=== PATIENT | female | born 1970 | race Caucasian/White ===

== ENCOUNTER 2016-12-24 16:26 | Inpatient (IN) ==
[2016-12-24 19:31] LABS: Basophils # 0.1 K/mcL (0.0-0.2); Basophils % 0.6 %; Eosinophils # 0.1 K/mcL (0.0-0.6); Eosinophils % 1.3 %; Hematocrit 40.4 % (35.3-44.9); Hemoglobin 13.5 g/dL (11.5-15.4); Immature Granulocytes % 0.5 % (0-4); Lymphocytes # 2.8 K/mcL (0.6-4.6); Mean Corpuscular HGB Conc 33.4 g/dL (31.6-35.5); Mean Corpuscular Hemoglobin 28.7 pg (28.0-33.3); Monocytes # 0.5 K/mcL (0.0-1.3); Monocytes % 4.9 %; Neutrophils # 7.5 K/mcL (1.6-8.9); Platelet Count 436 K/mcL (140-400); Red Cell Distribution Width 12.9 % (11.5-14.5); Segmented Neutrophils % 67.7 %
[2016-12-24 19:40] LABS: BUN/Creatinine Ratio 14 (6-26); Blood Urea Nitrogen 16 mg/dL (7-20); Calcium 9.4 mg/dL (8.6-10.8); Carbon Dioxide 21 mEq/L (19-29); Chloride 102 mEq/L (98-109); Glucose 451 mg/dL (70-99); Osmolality,Calculated 299 (280-300); Potassium 4.4 mEq/L (3.5-4.5); Sodium 134 mEq/L (136-145); eGFR For African Americans > 60 (> 60); eGFR For Non-African Americans 51 (> 60)
--- NOTE | 2016-12-24 21:21 | Emergency Department Note ---
Disposition Clinical Impression: Toe osteomyelitis, right, Poorly controlled diabetes mellitus, Acute osteomyelitis of toe of right foot Disposition: Admitted As Inpatient Condition: Serious Time of Disposition: 00:17 Extremity Problem HPI - General Chief complaint: ED Wound/Laceration Stated complaint: cellulitis Time Seen by Provider: 12/24/16 20:35 Source: patient, family Limitations: no limitations Nursing Notes Reviewed: Yes Vital Signs Reviewed: Yes - History of Present Illness HPI Narrative: 46-year-old female with right great toe swelling. Patient has a history of diabetes but has been unable to take her medications secondary to cost, her sugars have been running in the 300s. Patient states that she is having worsening pain, she was on Bactrim and Keflex last month but her swelling and redness got worse for the last few days. Patient reports subjective fevers at home. Pt Subjective Complaint: extremity pain, extremity swelling Onset (ago): week(s) Consistency: Worsening Injury Location: right, lower extremity Pain Scale: 6 Quality: burning, stabbing, aching Radiation: distal Improves with: nothing Worsens with: weight bearing Associated symptoms: Denies: chest pain, shortness of breath, abdominal pain - Related Data Home Medications Medication Instructions Recorded Confirmed Insulin ASPART [NovoLOG] 0 unit SQ TIDWM 12/24/16 12/24/16 Insulin Glargine [Lantus] 25 unit SQ HS 12/24/16 12/24/16 Allergies Allergy/AdvReac Type Severity Reaction Status Date / Time codeine Allergy Confusion Verified 12/24/16 16:56 All systems ED: reviewed and negative except as stated. Constitutional: Reports: as per HPI, fever, chills Cardiovascular: Denies: chest pain, palpitations Respiratory: Denies: cough, dyspnea Gastrointestinal: Denies: abdominal pain, nausea, vomiting Musculoskeletal: Reports: joint swelling Integumentary: Reports: as per HPI, rash, lesions Past Medical History - Past Medical History Attestation: Yes The following information was validated with the patient. Source: patient Medical history: Reports: diabetes, kidney stones Psychiatric history: Reports: no psych history GREENHOUSE SPECIALIST history: Reports: no GREENHOUSE SPECIALIST history - Social History Smoking Status: Current every day smoker Smokeless Tobacco Status: No Alcohol use: Reports: none Drug use: Reports: none Physical Exam Constitutional: Alert and appropriate, somewhat tachycardic. Neck: normal inspection, neck is supple, trachea midline Resp: normal chest inspection, CTA bilaterally, no resp distress CV: RRR, no m/g/r GI: normal inspection, Soft, NTND, BS present MSK: The great toe with area of lateral ulceration, purulent drainage, erythematous, severe swelling, neurologically somewhat limited to light touch distally. No streaking up the leg or foot. Psych: normal mood, normal affect Skin: No rashes, skin warm, dry, intact - General Limitations: no limitations General appearance: alert, in no apparent distress Course Course Narrative: Noncompliant insulin dependent diabetic, with worsening right toe infection appears to be cellulitic will get imaging to rule out osteal myelitis, - Reevaluation(s) Reevaluation #1: Lab work is remarkable for tachycardia, elevated white count therefore does not not meet Sirs criteria, lactic acid normal, blood cultures and wound cultures sent, we will consult with podiatry, admitted 10 [address] for further workup given osteomyelitis on CT scan Time: 00:16 - Consultations Consultation #1: Dr. Campos consulted and recommends Vanc Zosyn, nothing by mouth after midnight will dilate the patient in the morning. Vital Signs Temperature 98.1 F 12/24/16 16:57 Pulse Rate 107 12/24/16 16:57 Respiratory Rate 18 12/24/16 16:57 Blood Pressure 141/88 12/24/16 16:57 O2 Sat by Pulse Oximetry 98 12/24/16 16:57 Temperature 97.9 F 12/25/16 10:37 Pulse Rate 81 12/25/16 10:37 Respiratory Rate 17 12/25/16 10:37 Blood Pressure 119/78 12/25/16 10:37 O2 Sat by Pulse Oximetry 96 12/25/16 10:37 Oxygen Delivery Oxygen Delivery Room Air Extremity Problem, Nontraumati - MDM Narrative Medical decision making narrative: 46-year-old female with right foot cellulitis Mina myelitis started on IV antibiotics and IV fluids, consultative podiatry admitted to medicine service - Differential Diagnosis Likely: cellulitis, superficial thrombophlebitis, deep venous thrombosis, lower extremity edema, septic joint - Medical Records Medical records reviewed: Yes I reviewed the patient's medical records. - Lab Data Lab results reviewed: Yes I reviewed the patient's lab results. Result diagrams: 12/24/16 19:20 12/24/16 19:20 Lab Results 12/24/16 12/24/16 12/24/16 Range/Units 19:20 19:20 19:25 WBC 11.1 (4.3-11.1) K/mcL RBC 4.70 (3.82-4.97) M/mcL Hgb 13.5 (11.5-15.4) g/dL Hct 40.4 (35.3-44.9) % MCV 86.0 (83.0-100.0) fL MCH 28.7 (28.0-33.3) pg MCHC 33.4 (31.6-35.5) g/dL RDW 12.9 (11.5-14.5) % Plt Count 436 H (140-400) K/mcL MPV 10.0 (9.4-12.4) fL Immature Gran % 0.5 (0-4) % Seg Neutrophils % 67.7 % Lymphocytes % 25.0 % Monocytes % 4.9 % Eosinophils % 1.3 % Basophils % 0.6 % Neutrophils # 7.5 (1.6-8.9) K/mcL Lymphocytes # 2.8 (0.6-4.6) K/mcL Monocytes # 0.5 (0.0-1.3) K/mcL Eosinophils # 0.1 (0.0-0.6) K/mcL Basophils # 0.1 (0.0-0.2) K/mcL ESR (0-15) mm/hr VBG pH (7.32-7.42) pH Units VBG pCO2 (41-51) mmHg VBG pO2 (25-40) mmHg VBG HCO3 (21-27) mEq/L Sodium 134 L (136-145) mEq/L Potassium 4.4 (3.5-4.5) mEq/L Chloride 102 (98-109) mEq/L Carbon Dioxide 21 (19-29) mEq/L BUN 16 (7-20) mg/dL Creatinine 1.16 H (0.57-1.11) mg/dL Est GFR ( Amer) > 60 (> 60) Est GFR (Non-Af Amer) 51 L (> 60) BUN/Creatinine Ratio 14 (6-26) Glucose 451 H (70-99) mg/dL POC Glucose (58-89) Est Mean Plasma Glucose > 355 mg/dl Hemoglobin A1c >= 14.1 H ( - 5.6) % Calculated Osmolality 299 (280-300) Lactic Acid (0.5-2.2) mmol/L Calcium 9.4 (8.6-10.8) mg/dL C-Reactive Protein (Less than 5) mg/L Beta-Hydroxybutyric Acd (0.02-0.27) mmol/L Urine Color (Yellow) Urine Clarity (Clear) Urine pH (5.0-8.0) pH Units Ur Specific [place] (1.010-1.025) Urine Protein (Neg-Trace) mg/dL Urine Glucose (UA) (Normal) mg/dL Urine Ketones (Negative) mg/dL Urine Blood (Negative) Urine Nitrite (Negative) Urine Bilirubin (Negative) Urine Urobilinogen (Normal) mg/dL Ur Leukocyte Esterase (Negative) 12/24/16 12/24/16 12/24/16 Range/Units 21:32 21:32 21:32 WBC (4.3-11.1) K/mcL RBC (3.82-4.97) M/mcL Hgb (11.5-15.4) g/dL Hct (35.3-44.9) % MCV (83.0-100.0) fL MCH (28.0-33.3) pg MCHC (31.6-35.5) g/dL RDW (11.5-14.5) % Plt Count (140-400) K/mcL MPV (9.4-12.4) fL Immature Gran % (0-4) % Seg Neutrophils % % Lymphocytes % % Monocytes % % Eosinophils % % Basophils % % Neutrophils # (1.6-8.9) K/mcL Lymphocytes # (0.6-4.6) K/mcL Monocytes # (0.0-1.3) K/mcL Eosinophils # (0.0-0.6) K/mcL Basophils # (0.0-0.2) K/mcL ESR (0-15) mm/hr VBG pH 7.41 (7.32-7.42) pH Units VBG pCO2 42 (41-51) mmHg VBG pO2 53 H (25-40) mmHg VBG HCO3 26.6 (21-27) mEq/L Sodium (136-145) mEq/L Potassium (3.5-4.5) mEq/L Chloride (98-109) mEq/L Carbon Dioxide (19-29) mEq/L BUN (7-20) mg/dL Creatinine (0.57-1.11) mg/dL Est GFR ( Amer) (> 60) Est GFR (Non-Af Amer) (> 60) BUN/Creatinine Ratio (6-26) Glucose (70-99) mg/dL POC Glucose (58-89) Est Mean Plasma Glucose mg/dl Hemoglobin A1c ( - 5.6) % Calculated Osmolality (280-300) Lactic Acid 1.0 (0.5-2.2) mmol/L Calcium (8.6-10.8) mg/dL C-Reactive Protein (Less than 5) mg/L Beta-Hydroxybutyric Acd 0.34 H (0.02-0.27) mmol/L Urine Color (Yellow) Urine Clarity (Clear) Urine pH (5.0-8.0) pH Units Ur Specific [place] (1.010-1.025) Urine Protein (Neg-Trace) mg/dL Urine Glucose (UA) (Normal) mg/dL Urine Ketones (Negative) mg/dL Urine Blood (Negative) Urine Nitrite (Negative) Urine Bilirubin (Negative) Urine Urobilinogen (Normal) mg/dL Ur Leukocyte Esterase (Negative) 12/24/16 12/24/16 12/25/16 Range/Units 21:51 21:58 05:35 WBC (4.3-11.1) K/mcL RBC (3.82-4.97) M/mcL Hgb (11.5-15.4) g/dL Hct (35.3-44.9) % MCV (83.0-100.0) fL MCH (28.0-33.3) pg MCHC (31.6-35.5) g/dL RDW (11.5-14.5) % Plt Count (140-400) K/mcL MPV (9.4-12.4) fL Immature Gran % (0-4) % Seg Neutrophils % % Lymphocytes % % Monocytes % % Eosinophils % % Basophils % % Neutrophils # (1.6-8.9) K/mcL Lymphocytes # (0.6-4.6) K/mcL Monocytes # (0.0-1.3) K/mcL Eosinophils # (0.0-0.6) K/mcL Basophils # (0.0-0.2) K/mcL ESR (0-15) mm/hr VBG pH (7.32-7.42) pH Units VBG pCO2 (41-51) mmHg VBG pO2 (25-40) mmHg VBG HCO3 (21-27) mEq/L Sodium (136-145) mEq/L Potassium (3.5-4.5) mEq/L Chloride (98-109) mEq/L Carbon Dioxide (19-29) mEq/L BUN (7-20) mg/dL Creatinine (0.57-1.11) mg/dL Est GFR ( Amer) (> 60) Est GFR (Non-Af Amer) (> 60) BUN/Creatinine Ratio (6-26) Glucose (70-99) mg/dL POC Glucose 349 H 305 H (58-89) Est Mean Plasma Glucose mg/dl Hemoglobin A1c ( - 5.6) % Calculated Osmolality (280-300) Lactic Acid (0.5-2.2) mmol/L Calcium (8.6-10.8) mg/dL C-Reactive Protein (Less than 5) mg/L Beta-Hydroxybutyric Acd (0.02-0.27) mmol/L Urine Color Yellow (Yellow) Urine Clarity Clear (Clear) Urine pH 6.0 (5.0-8.0) pH Units Ur Specific [place] > 1.030 H (1.010-1.025) Urine Protein 100 H (Neg-Trace) mg/dL Urine Glucose (UA) >=1000 H (Normal) mg/dL Urine Ketones Negative (Negative) mg/dL Urine Blood Large H (Negative) Urine Nitrite Negative (Negative) Urine Bilirubin Negative (Negative) Urine Urobilinogen Normal (Normal) mg/dL Ur Leukocyte Esterase Negative (Negative) 12/25/16 12/25/16 12/25/16 Range/Units 10:40 11:14 11:14 WBC (4.3-11.1) K/mcL RBC (3.82-4.97) M/mcL Hgb (11.5-15.4) g/dL Hct (35.3-44.9) % MCV (83.0-100.0) fL MCH (28.0-33.3) pg MCHC (31.6-35.5) g/dL RDW (11.5-14.5) % Plt Count (140-400) K/mcL MPV (9.4-12.4) fL Immature Gran % (0-4) % Seg Neutrophils % % Lymphocytes % % Monocytes % % Eosinophils % % Basophils % % Neutrophils # (1.6-8.9) K/mcL Lymphocytes # (0.6-4.6) K/mcL Monocytes # (0.0-1.3) K/mcL Eosinophils # (0.0-0.6) K/mcL Basophils # (0.0-0.2) K/mcL ESR 75 H (0-15) mm/hr VBG pH (7.32-7.42) pH Units VBG pCO2 (41-51) mmHg VBG pO2 (25-40) mmHg VBG HCO3 (21-27) mEq/L Sodium (136-145) mEq/L Potassium (3.5-4.5) mEq/L Chloride (98-109) mEq/L Carbon Dioxide (19-29) mEq/L BUN (7-20) mg/dL Creatinine (0.57-1.11) mg/dL Est GFR ( Amer) (> 60) Est GFR (Non-Af Amer) (> 60) BUN/Creatinine Ratio (6-26) Glucose (70-99) mg/dL POC Glucose 361 H (58-89) Est Mean Plasma Glucose mg/dl Hemoglobin A1c ( - 5.6) % Calculated Osmolality (280-300) Lactic Acid (0.5-2.2) mmol/L Calcium (8.6-10.8) mg/dL C-Reactive Protein 40 H (Less than 5) mg/L Beta-Hydroxybutyric Acd (0.02-0.27) mmol/L Urine Color (Yellow) Urine Clarity (Clear) Urine pH (5.0-8.0) pH Units Ur Specific [place] (1.010-1.025) Urine Protein (Neg-Trace) mg/dL Urine Glucose (UA) (Normal) mg/dL Urine Ketones (Negative) mg/dL Urine Blood (Negative) Urine Nitrite (Negative) Urine Bilirubin (Negative) Urine Urobilinogen (Normal) mg/dL Ur Leukocyte Esterase (Negative) - Radiology Data Radiology results reviewed: Yes I reviewed the patient's radiology results. Foot X-Ray 12/24/16 21:19 IMPRESSION: Acute cellulitis involving the great toe proximal phalanx involving the distal epiphysis. There is associated soft tissue swelling involving the great toe. D/ / 12/24/2016 22:13:40 Rhys Hoffman MD / terry Interpreting Provider: Rhys Hoffman MD Lower Extremity CT 12/24/16 21:44 IMPRESSION: Soft tissue swelling about the foot most prominent involving CT of the great toe laterally were there appears to be an open wound with soft tissue gas. Cortical erosion involving the distal aspect of the proximal phalanx 1st digit adjacent to the IP joint. Findings are new since the previous exam likely representing osteomyelitis. No large joint effusion or definite involvement of the IP joint. D/ / Paulina Redmond MD / Paulina Redmond MD Interpreting Provider: Paulina Redmond MD Attestation Statement - Attestation Attestation: I personally interviewed and examined this patient and my medical decision- making was reviewed with the ED Resident Physician, Dr. Gabriel. I agree with the documented findings, disposition and treatment plan as documented in the chart. Pt is a 46 yo noncompliant, uncontrolled DM with recent R great toe cellulitis. Pt had taken outpt course approx 4 wks ago, with moderate improvement. Pt has noticed gradual worsening of R great toe pain/swelling/drainage/redness, with difficulty ambulating due to pain for past week. Pt reports she has been off her DM meds due to cost. CT shows evidence for R great toe osteomyelitis. Cxs pending, antibx initiated in ED. Pt admitted to medicine for DM mgmt with Podiatry consult. Notified and discussed case with [employer] consultant in ED. Pt hemodynamically stable and agrees with admission.
[2016-12-24 21:40] LABS: VBG HCO3 26.6 mEq/L (21-27); VBG PH 7.41 pH Units (7.32-7.42)
[2016-12-24] MEDS ORDERED: 0.9 % Sodium Chloride 1,000 ML IV ONE (21:56)
[2016-12-24 22:11] LABS: Bilirubin,Urine Negative (Negative); Blood,Urine Large (Negative); Clarity,Urine Clear (Clear); Color,Urine Yellow (Yellow); Glucose,Urine (UA) >=1000 mg/dL (Normal); Ketones,Urine Negative (Negative); Leukocyte Esterase,Urine Negative (Negative); Nitrite,Urine Negative (Negative); Protein,Urine 100 mg/dL (Neg-Trace); Specific Gravity,Urine > 1.030 (1.010-1.025); Urobilinogen,Urine Normal (Normal)
[2016-12-24] MEDS ORDERED: Clindamycin 900 MG/50 ML 900 MG/50 ML IV.SOLN IVPB ONE (22:28)
[2016-12-24] MEDS ORDERED: methylPREDNISolone 125 MG/2 ML VIAL IM ONE (23:14)
[2016-12-24] MEDS ORDERED: Famotidine 20 MG TABLET PO STA (23:17)
[2016-12-24] MEDS ORDERED: Vancomycin 1,000 MG in D5% in Water 250 ML IV ONE (23:27)
[2016-12-24] MEDS ORDERED: Piperacillin/Tazobactam 3.375 GM in D5% in Water (Mini-Bag+) 100 ML IVPB ONE (23:52)
[2016-12-25] MEDS: *HR* Morphine 2 MG/ML SYRINGE IVP PRN ×2 (04:12→10:58)
--- NOTE | 2016-12-25 04:39 | Internal Med History&Physical ---
Date of Encounter: 12/25/16 Time of Encounter: 05:00 Assessment and Plan (1) Cellulitis of right lower extremity Current visit: Yes Status: Acute . (2) Acute osteomyelitis of toe of right foot Current visit: Yes Status: Acute . (3) Poorly controlled diabetes mellitus Current visit: Yes Status: Acute . (4) Type I diabetes mellitus Current visit: Yes Status: Chronic . Qualifiers: Diabetes mellitus complication status: with unspecified complications Qualified Code(s): E10.8 - Type 1 diabetes mellitus with unspecified complications (5) Obesity (BMI 30.0-34.9) Current visit: Yes Status: Chronic . (6) Nicotine dependence with nicotine-induced disorder Current visit: Yes Status: Chronic . Qualifiers: Nicotine product type: cigarettes Qualified Code(s): F17.219 - Nicotine dependence, cigarettes, with unspecified nicotine-induced disorders (7) Acute kidney injury superimposed on CKD Current visit: Yes Status: Acute . (8) SIRS due to infectious process with acute organ dysfunction Current visit: Yes Status: Acute . (9) Nephropathy Current visit: Yes Status: Chronic . Internal Medicine - H&P: HPI Chief complaint: pain and swelling right foot Admitted From: Emergency Dept Plans for Post Hospital Care: Home History of present illness: Ms. Deleon is a 46 year old female history significant for poorly controlled type 1 DM, CKD III, nephrolithiasis, nicotine dependency. The patient was visited and interviewed and examined. Patient is admitted to [facility] via the emergency department when she presents in the company of family with complaints of pain and swelling of the right great toe. Patient is a diabetic and as an outpatient been treated for a cellulitis of her right great toe. She admits however that she had not been able to obtain medications prescribed due to cost. This same period of time her blood sugars have been out of control running 300 or higher. She presents reporting worsening pain. She was sent for a short time on Bactrim and Keflex the month prior to this presentation. However her swelling and redness worsened over the last few days. She reports subjective fevers and chills at home as well. This problem is been ongoing for over 8 weeks. She reports today's pain as a 6-7/10 severity. It is described as stabbing and burning constant. Affecting the distal aspect of the right foot and aggravated with any weightbearing or jarring of the foot. Findings in the ED: Temperature 98.1 pulse 107 respirations 18 BP 141/88. O2 saturation 98% pulse oximetry. WBC 11.1 hemoglobin 13.5 platelets 436,000. Differential normal. Metabolic panel normal except. Sodium 134. BUN 16 creatinine 1.16. GFR 51. Glucose 451. Osmolality 299. Beta hydroxybutyric acid 0.34. Venous blood gas pH 7.41 PCO2 42 PO2 53 bicarbonate 26.6. Lactic acid 1. Urinalysis specific gravity greater than 1.03. Large protein. Large glucose. Large blood. X-ray right foot demonstrates acute cellulitis involving the great toe proximal phalanx. Involving the distal epiphysis. There is associated soft tissue swelling involving the great toe. No evidence of acute fracture. No acute joint abnormality. There is a lytic process involving the great toe proximal phalanx. Involving the distal epiphysis. This finding is compatible with acute osteomyelitis. CT right lower extremity with contrast demonstrates soft tissue swelling about the foot most prominent involving the great toe laterally where there appears to be an open wound with soft tissue gas. Cortical erosion involving the distal aspect of the proximal phalanx stated adjacent to the IP joint. Findings likely representing osteomyelitis. No large joint effusion or definite involvement of IP joints seen. Generalized flexor and extensor tendons appear intact. (11/20/16 CT right foot without contrast demonstrated no CT evidence of osteomyelitis or other acute osseous abnormality. Subcutaneous fat stranding most prominently along the plantar surface of the first digit and some of the forefoot compatible with cellulitis. No well-defined fluid collection seen.). Preliminary impression suggests acute/subacute infection of the right foot just at the great toe with associated cellulitis and development of osteomyelitis involving the distal aspect of the proximal phalanx adjacent to the IP joint. This in the setting of poorly controlled dependent diabetes mellitus and outpatient medical treatment failure due to noncompliance with prescribed therapies. The patient is at risk for acute clinical decline and morbidity. Presentation is not fully meet SIRS criteria and sepsis criteria was not at the time of admission. This finding may be reflective of incomplete treatments in the outpatient setting. Her condition however is evolving. Workup and treatments will progress comprehensively. Cumulative laboratory and radiographic data base was reviewed, considered and discussed. Pertinent ancillary medical records including ECW and PCI documentation was reviewed and considered. Given the patient's presenting concerns, past medical history, clinical findings and symptoms, she is admitted at this time will undergo further evaluation and disposition. Orders were written as per the computerized physician eating disorder psychologist system.......................................................................... .................... Consultative opinions will be sought as clinical circumstances justify. Initial consultative opinion has been requested of podiatry. Pain management needs will be addressed. Laboratory and radiographic data base will be updated as appropriate. Studies include: Cultures of blood urine wound, CPK, LDH, PT/INR, APTT, cardiac injury panel, BNP, metabolic and hematologic panel, magnesium, phosphorus, ionized calcium, thyroid panel, lipid profile, A1c, C-peptide, CRP, sed rate, UA, UDS, seum HCG, blood gas, lactic acid, serologies, etc. Precautions: Aspiration, fall, delirium protocol/surveillance initiated. Telemetry with continuous hemodynamic monitoring and pulse oximetry initiated. Empiric antibiotic coverage: Intravenous vancomycin and Zosyn pending culture data. Special studies: CT RLE/ foot, right foot x-ray, chest x-ray, telemetry, EKG. Pulmonary toilet: Incentive spirometry. Aerosol bronchodilator, mucolytic, antitussive. Supplemental oxygen. Corticosteroid therapyPRN. CPAP/BiPAP supplemental oxygen deliveryPRN. Aerosol Mucomyst therapyPRN. Fluid and electrolyte repletion efforts will proceed. Careful attention to fluid balance and renal recovery will be emphasized. Avoidance of nephrotoxic exposure and adverse drug drug interaction in the setting of impaired renal function will be monitored closely. Acute coronary syndrome protocol/surveillance initiated. DVT and PUD prophylaxis initiated: PPI therapy, intermittent pneumatic cuffs. Subcutaneous heparin. Early ambulation will be encouraged. Immunization updates recommended. Influenza and pneumococcal vaccinations as part of ongoing preventative healthcare recommendations strongly recommended. Smoking cessation counseling briefly addressed. Patient accepts nicotine substitution during this admission.. Advanced care directive discussion briefly addressed. Patient does not declare any healthcare restrictions at this time. Cardiovascular risk appraisal and cardiovascular risk reduction efforts will be emphasized. Physical and occupational therapy may be consulted to assess patient's functional capacity and progress mobility if circumstances justify. Sliding scale/basal/nutrition insulin coverage, ADA dietary restraint and schedule an as-needed basis fingerstick glucose assessments were initiated. Nutrition/diabetes education counseling may be considered as circumstances justify. Outpatient medication schedules will be reviewed, confirmed and facilitated as appropriate. Reconciliation of home treatments including adjustments, substitutions and reintroduction into the treatment regimen will address necessary maintenance therapies for chronic pre-existing medical conditions. Plan of care has been reviewed and discussed in detail with the patient. Questions addressed. Hospital course dictated by clinical findings, treatment response and potential consultative interventions. Patient is at risk for further acute clinical decline due to her presenting chief complaints, findings and comorbid conditions. Condition is serious. Prognosis is guarded. CODE STATUS is full. Past Med Surg Social Fam HX - Past Medical History Source: old records reviewed Medical history: arthritis, diabetes, hypertension, kidney stones, renal disease , other Psychiatric history: no psych history - Past Surgical History Surgical History: appendectomy, other - Social History Smoking Status: Current every day smoker Packs per day: 1 ppd Smokeless Tobacco Status: No Alcohol use: none Drug use: none Occupational status: unemployed Current living situation: With Family Activity Level: Independent ambulation, Mostly sedentary Recent Out of Country Travel Within the Last 8 Weeks: No Exposure or Possible Exposure to Illness During Travel: No - Family History Mother Adopted: [place]: Nu [place] Family Member Ethnicity: Non- Living Status: Age at : 62 Cause of : Fell and had complications. Hx Family Cardiac Disorders: Yes (HTN) Hx Family Respiratory Disorders: No Hx Family Cancer: No Hx Family GI Disorders: No Hx Family Genitourinary Disorders: No Hx Family Endocrine Disorder: Yes (DM) Hx Family Musculoskeletal Disorders: No Hx Family Neuromuscular Disorders: No Hx Family Neurologic Disorders: No Hx Family HEENT Disorders: No Hx Family Autoimmune Disorders: No Hx Family Reproductive Disorders: No Hx Family Psychosocial Disorders: Yes (Depression) Hx Family Medical Disorders: No Internal Medicine - H&P: Meds Insulin ASPART [NovoLOG] 0 unit SQ TIDWM 12/24/16 [History] Insulin Glargine [Lantus] 25 unit SQ HS 12/24/16 [History] Allergies codeine Allergy (Verified 12/24/16 16:56) Confusion All Systems PM: A 10-system review of systems was performed and is negative for pertinent findings except as documented above in the HPI. - Constitutional Constitutional: as per HPI, malaise, no chills, no fever(s), no night sweats - EENT Eyes: as per HPI, no change in vision, no discharge, no pain, no photophobia Ears: as per HPI, no ear discharge, no ear pain, no tinnitus Nose, mouth and throat: as per HPI, no dysphagia, no nasal discharge, no neck pain, no sore throat - Cardiovascular Cardiovascular ROS IM: as per HPI, no chest pain, no diaphoresis, no dyspnea, no lightheadedness, no palpitations, no syncope - Respiratory Respiratory: as per HPI, no cough, no dyspnea, no wheezing, no excessive phlegm production - Gastrointestinal Gastrointestinal: as per HPI, no abdominal pain, no diarrhea, no hematemesis, no hematochezia, no melena, no nausea, no vomiting - Genitourinary Genitourinary: as per HPI, no change in urinary stream, no dysuria, no flank pain, no hematuria - Musculoskeletal Musculoskeletal ROS IM: as per HPI, joint swelling, other, no numbness, no tingling - Integumentary Integumentary IM: as per HPI, erythema, non-healing lesions, rash, other, no unusual bruising - Neurological Neurological ROS: as per HPI, no confusion, no convulsions, no focal weakness, no numbness, no tingling, no tremor(s) - Psychiatric Psychiatric: as per HPI - Endocrine Endocrine IM: as per HPI - Hematologic/Lymphatic Hematologic/Lymphatic: as per HPI, no easy bruising - Allergic/Immunologic Allergic/Immunologic: as per HPI - Constitutional Vitals: Temp Pulse Resp BP Pulse Ox 97.5 F L 97 18 119/55 97 12/25/16 03:38 12/25/16 03:38 12/25/16 03:38 12/25/16 03:38 12/25/16 03:38 General appearance: Present: cooperative, mild distress, A&O X 3, obese, answers questions appropriately - Head Head exam: Present: atraumatic, normocephalic - Eye Eye exam: Present: EOMI, PERRL, conjuntiva pink, sclera anicteric Pupils: Present: normal accommodation, PERRL - ENT ENT exam: Present: mucous membranes moist, normal oropharynx - Neck Neck exam general surgery: Present: full ROM, supple, trachea midline. Absent: lymphadenopathy - Respiratory Respiratory exam: Present: decreased breath sounds, CTAB. Absent: accessory muscle use, rales, rhonchi, wheezes - Cardiovascular Cardiovascular exam: Present: distant heart sounds, RRR, +S1, +S2. Absent: diastolic murmur, gallop, rubs, systolic murmur - GI/Abdominal GI/Abdominal exam: Present: normal bowel sounds, soft, no peritoneal signs. Absent: distended, tenderness - Extremities Exam Extremities exam: Present: full ROM, joint swelling, pedal edema, tenderness, warm, radial pulses palpable and symetrical. Absent: calf tenderness, cyanotic - Expanded Lower Extremities Exam Foot/Toe exam: Present: erythema, swelling, tenderness. Absent: full ROM, normal inspection Gait: Present: not tested/not observed - Neurological Exam Neurological exam: Present: alert, CN II-XII intact, oriented X3, no focal deficits. Absent: pronater drift, facial droop, speech deficit - Psychiatric Psychiatric exam: Present: normal affect, normal mood - Skin Skin exam: Present: dry, erythema, excoriation, intact, rash, vesicles, warm. Absent: petechiae, urticaria Internal Med - H&P Results - Labs CBC & Chem 7: 12/24/16 19:20 12/24/16 19:20 - Impressions Vital Signs Temp Pulse Resp BP Pulse Ox 12/25/16 03:38 97.5 F L 97 18 119/55 97 12/25/16 00:31 97.4 F L 101 18 136/84 98 12/25/16 00:04 18 135/87 12/24/16 16:57 98.1 F 107 18 141/88 98 Intake and Output 12/24/16 12/24/16 12/25/16 15:59 23:59 07:59 Intake Total 50 / 50 1250 / 1250 Output Total 700 / 700 Balance 50 / 50 550 / 550 Intake: IV Fluids 50 / 50 1250 / 1250 0.9 % Sodium Chloride 1, 1000 / 1000 000 ML @ 3750 mls/hr IV BOLUS ONE Rx#:[id number] Vancocin 1,000 MG In 250 / 250 Dextrose 5% 250 ML @ 167 mls/hr IV ONCE ONE Rx#: [id number] Cleocin 900 MG/50 ML 900 50 / 50 mg In 50 ml @ 50 mls/hr IVPB ONCE ONE Rx#: [id number] Oral 0 / 0 Output: Urine 700 / 700 Other: # Voids 1 Weight 81.647 kg 82.3 kg Blood Glucose* 349 Patient Weight 12/25/16 23:59 Weight 82.3 kg Short CBC 12/24/16 Range/Units 19:20 WBC 11.1 (4.3-11.1) K/mcL Hgb 13.5 (11.5-15.4) g/dL Hct 40.4 (35.3-44.9) % Plt Count 436 H (140-400) K/mcL Neutrophils # 7.5 (1.6-8.9) K/mcL BMP 12/24/16 Range/Units 19:20 Sodium 134 L (136-145) mEq/L Potassium 4.4 (3.5-4.5) mEq/L Chloride 102 (98-109) mEq/L Carbon Dioxide 21 (19-29) mEq/L BUN 16 (7-20) mg/dL Creatinine 1.16 H (0.57-1.11) mg/dL Glucose 451 H (70-99) mg/dL Calcium 9.4 (8.6-10.8) mg/dL Urine 12/24/16 Range/Units 21:51 Urine Color Yellow (Yellow) Urine Clarity Clear (Clear) Urine pH 6.0 (5.0-8.0) pH Units Ur Specific Thomas > 1.030 H (1.010-1.025) Urine Protein 100 H (Neg-Trace) mg/dL Urine Glucose (UA) >=1000 H (Normal) mg/dL Abnormal lab results Plt Count 436 K/mcL (140-400) H 12/24/16 19:20 VBG pO2 53 mmHg (25-40) H 12/24/16 21:32 Sodium 134 mEq/L (136-145) L 12/24/16 19:20 Creatinine 1.16 mg/dL (0.57-1.11) H 12/24/16 19:20 Est GFR (Non-Af Amer) 51 (> 60) L 12/24/16 19:20 Glucose 451 mg/dL (70-99) H 12/24/16 19:20 POC Glucose 349 (58-89) H 12/24/16 21:58 Beta-Hydroxybutyric Acd 0.34 mmol/L (0.02-0.27) H 12/24/16 21:32 Ur Specific Thomas > 1.030 (1.010-1.025) H 12/24/16 21:51 Urine Protein 100 mg/dL (Neg-Trace) H 12/24/16 21:51 Urine Glucose (UA) >=1000 mg/dL (Normal) H 12/24/16 21:51 Urine Blood Large (Negative) H 12/24/16 21:51 Allergies Allergy/AdvReac Type Severity Reaction Status Date / Time codeine Allergy Confusion Verified 12/24/16 16:56 Laboratory Results WBC 11.1 K/mcL (4.3-11.1) 12/24/16 19:20 RBC 4.70 M/mcL (3.82-4.97) 12/24/16 19:20 Hgb 13.5 g/dL (11.5-15.4) 12/24/16 19:20 Hct 40.4 % (35.3-44.9) 12/24/16 19:20 MCV 86.0 fL (83.0-100.0) 12/24/16 19:20 MCH 28.7 pg (28.0-33.3) 12/24/16 19:20 MCHC 33.4 g/dL (31.6-35.5) 12/24/16 19:20 RDW 12.9 % (11.5-14.5) 12/24/16 19:20 Plt Count 436 K/mcL (140-400) H 12/24/16 19:20 MPV 10.0 fL (9.4-12.4) 12/24/16 19:20 Immature Gran % 0.5 % (0-4) 12/24/16 19:20 Seg Neutrophils % 67.7 % 12/24/16 19:20 Lymphocytes % 25.0 % 12/24/16 19:20 Monocytes % 4.9 % 12/24/16 19:20 Eosinophils % 1.3 % 12/24/16 19:20 Basophils % 0.6 % 12/24/16 19:20 Neutrophils # 7.5 K/mcL (1.6-8.9) 12/24/16 19:20 Lymphocytes # 2.8 K/mcL (0.6-4.6) 12/24/16 19:20 Monocytes # 0.5 K/mcL (0.0-1.3) 12/24/16 19:20 Eosinophils # 0.1 K/mcL (0.0-0.6) 12/24/16 19:20 Basophils # 0.1 K/mcL (0.0-0.2) 12/24/16 19:20 VBG pH 7.41 pH Units (7.32-7.42) 12/24/16 21:32 VBG pCO2 42 mmHg (41-51) 12/24/16 21:32 VBG pO2 53 mmHg (25-40) H 12/24/16 21:32 VBG HCO3 26.6 mEq/L (21-27) 12/24/16 21:32 Sodium 134 mEq/L (136-145) L 12/24/16 19:20 Potassium 4.4 mEq/L (3.5-4.5) 12/24/16 19:20 Chloride 102 mEq/L (98-109) 12/24/16 19:20 Carbon Dioxide 21 mEq/L (19-29) 12/24/16 19:20 BUN 16 mg/dL (7-20) 12/24/16 19:20 Creatinine 1.16 mg/dL (0.57-1.11) H 12/24/16 19:20 Est GFR ( Amer) > 60 (> 60) 12/24/16 19:20 Est GFR (Non-Af Amer) 51 (> 60) L 12/24/16 19:20 BUN/Creatinine Ratio 14 (6-26) 12/24/16 19:20 Glucose 451 mg/dL (70-99) H 12/24/16 19:20 POC Glucose 349 (58-89) H 12/24/16 21:58 Calculated Osmolality 299 (280-300) 12/24/16 19:20 Lactic Acid 1.0 mmol/L (0.5-2.2) 12/24/16 21:32 Calcium 9.4 mg/dL (8.6-10.8) 12/24/16 19:20 Beta-Hydroxybutyric Acd 0.34 mmol/L (0.02-0.27) H 12/24/16 21:32 Urine Color Yellow (Yellow) 12/24/16 21:51 Urine Clarity Clear (Clear) 12/24/16 21:51 Urine pH 6.0 pH Units (5.0-8.0) 12/24/16 21:51 Ur Specific Thomas > 1.030 (1.010-1.025) H 12/24/16 21:51 Urine Protein 100 mg/dL (Neg-Trace) H 12/24/16 21:51 Urine Glucose (UA) >=1000 mg/dL (Normal) H 12/24/16 21:51 Urine Ketones Negative mg/dL (Negative) 12/24/16 21:51 Urine Blood Large (Negative) H 12/24/16 21:51 Urine Nitrite Negative (Negative) 12/24/16 21:51 Urine Bilirubin Negative (Negative) 12/24/16 21:51 Urine Urobilinogen Normal mg/dL (Normal) 12/24/16 21:51 Ur Leukocyte Esterase Negative (Negative) 12/24/16 21:51 Impressions Foot X-Ray 12/24/16 21:19 IMPRESSION: Acute cellulitis involving the great toe proximal phalanx involving the distal epiphysis. There is associated soft tissue swelling involving the great toe. D/ / 12/24/2016 22:13:40 Rhys Hoffman MD / earno Interpreting Provider: Rhys Hoffman MD Lower Extremity CT 12/24/16 21:44 IMPRESSION: Soft tissue swelling about the foot most prominent involving CT of the great toe laterally were there appears to be an open wound with soft tissue gas. Cortical erosion involving the distal aspect of the proximal phalanx 1st digit adjacent to the IP joint. Findings are new since the previous exam likely representing osteomyelitis. No large joint effusion or definite involvement of the IP joint. D/ / Paulina Redmond MD / Paulina Redmond MD Interpreting Provider: Paulina Redmond MD
--- NOTE | 2016-12-25 07:45 | Event Note ---
Date of Encounter: 12/25/16
[2016-12-25] MEDS ORDERED: Dextrose Gel 15 GM PO PRN ×2 (10:10)
[2016-12-25] MEDS ORDERED: *HR* Dextrose 50 % in Water (Syg) 50 ML SYRINGE IVP PRN (10:10)
[2016-12-25] MEDS ORDERED: D5% in Water 1,000 ML IV PRN (10:10)
[2016-12-25] MEDS ORDERED: Insulin DETEMIR 100 UNIT/ML X5UNITS SQ SCH (10:15)
[2016-12-25] MEDS: Insulin LISPRO 300 UNITS/3 ML VIAL SQ SCH ×4 (10:56→17:19)
[2016-12-25] MEDS ORDERED: Acetaminophen 325 MG TABLET PO PRN (11:00)
[2016-12-25] MEDS ORDERED: Vancomycin 1,250 MG in D5% in Water 250 ML IVPB SCH (11:00)
--- NOTE | 2016-12-25 11:12 | Internal Med History&Physical ---
Date of Encounter: 12/25/16 Time of Encounter: 11:04 Assessment and Plan (1) Acute osteomyelitis of toe of right foot Current visit: Yes Status: Acute 1 Patient has had wound to R foot since October without improvement. Today increased redness and swelling and drainage. WBC 11.[address] of lower extremity indicative of osteomyelitis. Blood and wound coutures obtained 2 Empiric coverage of Van and zosyn 3 Consulted podiatry for I/D. 4 will complete a cardiac workup prior to surgery, d/t hx of uncontrolled DM smoker, and CKD - EKG and stress in am 5 morphine and norco for pain 6 NPO after midnight (2) Poorly controlled diabetes mellitus Current visit: Yes Status: Acute 1 patient has not taken been taking insulin for sometime dt money constraints. Consulted social work specialist 2 barrel assembly inspector consult 3 A1c 4 Accucheck A/C HS - with basal nutritional and SSI coverage 5 Diabetic diet (3) Nicotine dependence with nicotine-induced disorder Current visit: Yes Status: Chronic 1 encourage patient to stop smoking 2 nicotine patch Qualifiers: Nicotine product type: cigarettes Qualified Code(s): F17.219 - Nicotine dependence, cigarettes, with unspecified nicotine-induced disorders (4) CKD (chronic kidney disease), stage III Current visit: Yes Status: Acute 1 In October creatine 1.42 today 1.16 GFR in Oct today 51. Will continue to monitor Creatinine 2 avoid nephrotoxins 3 renal dose ATB (5) DVT prophylaxis Current visit: Yes Status: Acute 1 Heparin Internal Medicine - H&P: HPI Chief complaint: R toe redness/swelling Admitted From: Emergency Dept Plans for Post Hospital Care: Home History of present illness: Ms. Deleon is a 46 year old female with past medical hx of DM2. She has been experiencing R Great toe redness and swelling since October of this year. She doesn't recall injuring her foot, however she does have a cut to the inner aspect of toe. She is noncompliant diabetic and has not been taking her insulin d/t cost as well as she is a smoker. Her BS have been running about 300. She frequently ambulates without wearing shoes. She does not have an established PCP and has not seen a provider in sometime. Admits to subjective fevers however denies any N/V/D CP SOB abd pain In October she presented to the ED and was given Bactrim and Keflex orally and sx somewhat improved. However over the past few days she has been experiencing increasing redness, pain and yellow drainage from in between her Great toe. Today, she presented to the ED with the above complaints. In the ED her labwork revealed Creatinine 1.16 glucose 451 WBC 11.1 lactate 1.0. Foot xray was indicative of cellulitis and CT of lower extremitiy revealed osteomyelitis with No large joint effusion or definite involvement of the IP joint. Blood/wound cultures obtained and patient started on ATB Vanc and zosyn. The ED physyican consulted podiatry Dr Campos who request patient be NPO after midnight for ID. Patient was admitted for further workup and evaluation. Upon assessment the patient appears older than stated age, her R great toes is red swollen snd warm to touch. There is yellow/brown sticky drainage in between toe with foul odor. Due to the patient's hx of diabetic noncompliance, smoking and CKD, this increases her risk of a cardiac event during surgery, therefore we will complete a cardiac workup prior to surgery . I reviewed this case with Dr Lee who agrees with plan Past Med Surg Social Fam HX - Past Medical History Medical history: arthritis, diabetes, hypertension, kidney stones, other Psychiatric history: no psych history - Past Surgical History Surgical History: appendectomy - Social History Smoking Status: Current every day smoker Packs per day: 1 ppd Smokeless Tobacco Status: No Alcohol use: none Drug use: none - Family History Mother Adopted: [place]: Nu Wilson Family Member Ethnicity: Non- Living Status: Age at : 60 Cause of : Fell and had complications. Hx Family Cardiac Disorders: Yes (HTN) Hx Family Respiratory Disorders: No Hx Family Cancer: No Hx Family GI Disorders: No Hx Family Genitourinary Disorders: No Hx Family Endocrine Disorder: Yes (DM) Hx Family Musculoskeletal Disorders: No Hx Family Neuromuscular Disorders: No Hx Family Neurologic Disorders: No Hx Family HEENT Disorders: No Hx Family Autoimmune Disorders: No Hx Family Reproductive Disorders: No Hx Family Psychosocial Disorders: Yes (Depression) Hx Family Medical Disorders: No Internal Medicine - H&P: Meds Insulin ASPART [NovoLOG] 0 unit SQ TIDWM 12/24/16 [History] Insulin Glargine [Lantus] 25 unit SQ HS 12/24/16 [History] Allergies codeine Allergy (Verified 12/24/16 16:56) Confusion All Systems PM: A 10-system review of systems was performed and is negative for pertinent findings except as documented above in the HPI. - Constitutional Constitutional: fever(s) - EENT Eyes: no change in vision, no discharge, no pain, no photophobia - Cardiovascular Cardiovascular ROS IM: no chest pain, no diaphoresis, no dyspnea, no lightheadedness, no palpitations, no syncope - Respiratory Respiratory: no cough, no dyspnea, no wheezing, no excessive phlegm production - Gastrointestinal Gastrointestinal: no abdominal pain, no diarrhea, no hematemesis, no hematochezia, no melena, no nausea, no vomiting - Genitourinary Genitourinary: no change in urinary stream, no dysuria, no flank pain, no hematuria - Musculoskeletal Additional comments: swelling R great toe redness - Integumentary Integumentary IM: erythema, non-healing lesions - Neurological Neurological ROS: no confusion, no convulsions, no focal weakness, no numbness, no tingling, no tremor(s) - Constitutional Vitals: Temp Pulse Resp BP Pulse Ox 97.9 F 81 17 119/78 96 12/25/16 10:37 12/25/16 10:37 12/25/16 10:37 12/25/16 10:37 12/25/16 10:37 General appearance: Present: cooperative, A&O X 3, obese, answers questions appropriately - Head Head exam: Present: atraumatic, normocephalic - Eye Eye exam: Present: PERRL, conjuntiva pink, sclera anicteric Pupils: Present: PERRL - Respiratory Respiratory exam: Present: CTAB. Absent: accessory muscle use, rales, rhonchi, wheezes - Cardiovascular Cardiovascular exam: Present: RRR, +S1, +S2. Absent: diastolic murmur, gallop, rubs, systolic murmur - GI/Abdominal GI/Abdominal exam: Present: normal bowel sounds, soft, no peritoneal signs. Absent: distended, tenderness - Extremities Exam Extremities exam: Present: pedal edema, tenderness, warm, radial pulses palpable and symetrical. Absent: calf tenderness, cyanotic - Expanded Lower Extremities Exam Foot/Toe exam: Present: erythema, swelling, tenderness - Neurological Exam Neurological exam: Present: CN II-XII intact, oriented X3, no focal deficits. Absent: pronater drift, facial droop, speech deficit - Skin Skin exam: Present: dry, intact Internal Med - H&P Results - Labs CBC & Chem 7: 12/24/16 19:20 12/24/16 19:20 - Diagnostic Studies Other Images Additional comments: Foot X-Ray 12/24/16 21:19 IMPRESSION: Acute cellulitis involving the great toe proximal phalanx involving the distal epiphysis. There is associated soft tissue swelling involving the great toe. D/ / 12/24/2016 22:13:40 Rhys Hoffman MD / earnold Interpreting Provider: Rhys Hoffman MD Lower Extremity CT 12/24/16 21:44 IMPRESSION: Soft tissue swelling about the foot most prominent involving CT of the great toe laterally were there appears to be an open wound with soft tissue gas. Cortical erosion involving the distal aspect of the proximal phalanx 1st digit adjacent to the IP joint. Findings are new since the previous exam likely representing osteomyelitis. No large joint effusion or definite involvement of the IP joint. D/ / Paulina Redmond MD / Paulina Redmond MD Interpreting Provider: Paulina Redmond MD
[2016-12-25] MEDS ORDERED: Naloxone 0.4 MG/ML INJ IVP PRN (12:33)
[2016-12-25] MEDS ORDERED: Ondansetron 4 MG/2 ML VIAL IVP PRN (12:33)
[2016-12-25] MEDS: Vancomycin 1,250 MG in D5% in Water 250 ML IVPB SCH (12:44)
[2016-12-25] MEDS: 0.9 % Sodium Chloride 1,000 ML IVC SCH (12:45)
[2016-12-25 12:57] LABS: Estimated Average Glucose > 355 mg/dl; Hemoglobin A1C >= 14.1 %
--- NOTE | 2016-12-25 14:32 | Electrocardiograph Report ---
[place] [address] Test Date: 2016-12-25 Pat Name: Deb Deleon Department: 115 Room: 3A11 Gender: F Senior Technical Editor: : 1970 Requested By: Liliane Jacques Order Number: [id number] Reading MD: Petar Baltazar Measurements Intervals [place] Rate: 82 P: 56 [place]: 142 QRS: 46 QRSD: 92 T: 52 QT: 375 QTc: 413 Interpretive Statements SINUS RHYTHM Electronically Signed On 12-25-2016 14:30:43 EST by Petar Baltazar
--- NOTE | 2016-12-25 15:14 | Podiatry Consult Note ---
Date of Encounter: 12/26/16 Time of Encounter: 11:30 Assessment and Plan (1) Acute osteomyelitis of toe of right foot Current visit: Yes Status: Acute Cellulitis to the right great toe secondary to a full thickness ulceration to the lateral aspect of the right great toe with positive probe to bone consistent with acute osteomyelitis of the right great toe. Xray of right great toe on 12/25/15: acute cellulitis involving the great toe proximal involving the distal epiphysis. CT of RLE on 12/25/15: corticol erosion involving the distal aspect of the proximal phalanx 1st digit adjacent to the IP joint. Findings are new since the previous exam likely representing osteomyelitis. Wound cultures obtained and pending. Agree with present antibiotic therapy. WBC: 11.1. ESR: 75 CRP: 40 Dr. Campos to plan on taking patient to surgery on 12/27/16 for an I&D of the right great toe. (2) CKD (chronic kidney disease), stage III Current visit: Yes Status: Acute (3) Cellulitis of right lower extremity Current visit: Yes Status: Acute (4) Poorly controlled diabetes mellitus Current visit: Yes Status: Acute (5) Nicotine dependence with nicotine-induced disorder Current visit: Yes Status: Chronic Qualifiers: Nicotine product type: cigarettes Qualified Code(s): F17.219 - Nicotine dependence, cigarettes, with unspecified nicotine-induced disorders History of Present Illness HPI: Ms. Deleon is a 46 year old female admitted to [place] for cellulitis of the right great toe. Patient has a medical history significant for diabetes mellitus with neuropathy. Patient states her blood sugars have been running high due to not being able to afford the cost of her medications for her diabetes. Podiatry was consulted for redness and swelling of the right great toe. Patient states the swelling and redness to the right great toe started in October of 2016. She was evaluated in the ER and at that time was discharged on Bactrim and Keflex. Patient states her toe improved after taking the medications. Patient states her right great toe started to swell and become painful 3 days ago. No c/o fever, chills, fatigue. Past Med Surg Social Fam HX - Past Medical History Medical history: diabetes, kidney stones Psychiatric history: no psych history - Past Surgical History Surgical History: appendectomy - Social History Smoking Status: Current every day smoker Packs per day: 1 ppd Smokeless Tobacco Status: No Alcohol use: none Drug use: none - Family History Mother Adopted: [place]: Nu Wilson Family Member Ethnicity: Non- Living Status: Age at : 60 Cause of : Fell and had complications. Hx Family Cardiac Disorders: Yes (HTN) Hx Family Respiratory Disorders: No Hx Family Cancer: No Hx Family GI Disorders: No Hx Family Genitourinary Disorders: No Hx Family Endocrine Disorder: Yes (DM) Hx Family Musculoskeletal Disorders: No Hx Family Neuromuscular Disorders: No Hx Family Neurologic Disorders: No Hx Family HEENT Disorders: No Hx Family Autoimmune Disorders: No Hx Family Reproductive Disorders: No Hx Family Psychosocial Disorders: Yes (Depression) Hx Family Medical Disorders: No Medications and Allergies Insulin ASPART [NovoLOG] 0 unit SQ TIDWM 12/24/16 [History] Insulin Glargine [Lantus] 25 unit SQ HS 12/24/16 [History] Allergies codeine Allergy (Verified 12/24/16 16:56) Confusion All Systems Reviewed: A 10-system review of systems was performed and is negative for pertinent findings except as documented above in the HPI. Physical Exam - Constitutional Vitals: Temp Pulse Resp BP Pulse Ox 97.9 F 81 17 119/78 96 12/25/16 10:37 12/25/16 10:37 12/25/16 10:37 12/25/16 10:37 12/25/16 10:37 Exam: General appearance: alert awake oriented X 3. Calm and pleasant, no acute distress.. Vascular: Pedal pulses +2/4 DP/PT , No evidence of cyanosis, pallor or rubor, Edema graded at 1+/4, Skin Tempature warm, No calf pain with manual compression. capillary refill time is immediate to digits. Neurologic: Decreased sensation as evidenced by the SWMF 5.07.. Ulcer: Full-thickness ulceration to the lateral aspect of the right great toe measuring 0.3 cm in length x 1 cm in width x 2 cm in depth, tunneling at 3 O' Clock 2 cm. positive probe to bone. Malodorous. Right great toe is globally edematous and erythematous. No streaking, no ascending cellulitis, no lymphangitis. Macerated skin to the interdigital webspace between to #1 , #2 of the right foot. Results - Labs Result Diagrams: 12/26/16 04:26 12/26/16 04:26 Labs: Abnormal lab results Plt Count 436 K/mcL (140-400) H 12/24/16 19:20 ESR 75 mm/hr (0-15) H 12/25/16 11:14 VBG pO2 53 mmHg (25-40) H 12/24/16 21:32 Sodium 134 mEq/L (136-145) L 12/24/16 19:20 Creatinine 1.16 mg/dL (0.57-1.11) H 12/24/16 19:20 Est GFR (Non-Af Amer) 51 (> 60) L 12/24/16 19:20 Glucose 451 mg/dL (70-99) H 12/24/16 19:20 POC Glucose 361 (58-89) H 12/25/16 10:40 Hemoglobin A1c >= 14.1 % (-5.6) H 12/24/16 19:25 C-Reactive Protein 40 mg/L (Less than 5) H 12/25/16 11:14 Beta-Hydroxybutyric Acd 0.34 mmol/L (0.02-0.27) H 12/24/16 21:32 Ur Specific [place] > 1.030 (1.010-1.025) H 12/24/16 21:51 Urine Protein 100 mg/dL (Neg-Trace) H 12/24/16 21:51 Urine Glucose (UA) >=1000 mg/dL (Normal) H 12/24/16 21:51 Urine Blood Large (Negative) H 12/24/16 21:51 All other labs normal. Consult Discharge Plan - Plan Referrals: Aparna Jhaveri CNP [Advanced Practice Nurse] - 01/04/17 3:00 pm
[2016-12-25] MEDS: Nicotine 14 MG PATCH.TD24 TD SCH (16:22)
[2016-12-25] MEDS: Piperacillin/Tazobactam 3.375 GM in D5% in Water (Mini-Bag+) 100 ML IVPB SCH (16:23)
[2016-12-25] MEDS: *HR* HYDROcodone/Acet 5/325 mg TABLET PO PRN ×2 (16:24→20:57)
[2016-12-25] MEDS: Insulin DETEMIR 100 UNIT/ML X5UNITS SQ SCH (20:57)
[2016-12-26] MEDS: Vancomycin 1,250 MG in D5% in Water 250 ML IVPB SCH ×3 (00:24→21:36)
[2016-12-26] MEDS: Piperacillin/Tazobactam 3.375 GM in D5% in Water (Mini-Bag+) 100 ML IVPB SCH ×3 (02:00→16:49)
[2016-12-26 04:40] LABS: Basophils # 0.1 K/mcL (0.0-0.2); Basophils % 0.9 %; Eosinophils # 0.2 K/mcL (0.0-0.6); Eosinophils % 2.6 %; Hematocrit 33.6 % (35.3-44.9); Hemoglobin 11.2 g/dL (11.5-15.4); Immature Granulocytes % 0.4 % (0-4); Lymphocytes % 32.1 %; Mean Corpuscular HGB Conc 33.3 g/dL (31.6-35.5); Monocytes # 0.5 K/mcL (0.0-1.3); Monocytes % 5.3 %; Neutrophils # 5.4 K/mcL (1.6-8.9); Platelet Count 364 K/mcL (140-400); Red Blood Count 3.86 M/mcL (3.82-4.97); Red Cell Distribution Width 13.2 % (11.5-14.5); Segmented Neutrophils % 58.7 %
[2016-12-26 04:58] LABS: BUN/Creatinine Ratio 17 (6-26); Blood Urea Nitrogen 16 mg/dL (7-20); Carbon Dioxide 22 mEq/L (19-29); Chloride 106 mEq/L (98-109); Chol/HDL Ratio 6.5 (0-4.9); Cholesterol 214 mg/dL (< 200); Glucose 279 mg/dL (70-99); HDL Cholesterol 33 mg/dL (40-59); LDL Cholesterol,Calculated 135 mg/dL (0-99); Magnesium 1.3 mg/dL (1.6-2.6); Osmolality,Calculated 293 (280-300); Potassium 3.7 mEq/L (3.5-4.5); Sodium 136 mEq/L (136-145); Triglycerides 232 mg/dL (< 150); eGFR For African Americans > 60 (> 60); eGFR For Non-African Americans > 60 (> 60)
[2016-12-26] MEDS ORDERED: Regadenoson 0.4 MG/5 ML SYRINGE IVP ONE (06:14)
[2016-12-26] MEDS ORDERED: Magnesium Sulfate 2 GM in D5% in Water 100 ML IVPB ONE (07:49)
[2016-12-26] MEDS: Insulin LISPRO 300 UNITS/3 ML VIAL SQ SCH ×6 (09:54→16:57)
--- NOTE | 2016-12-26 10:00 | Podiatry Progress Note ---
Date of Encounter: 12/26/16 Time of Encounter: 09:00 - Assessment and Plan (1) Fissure in skin of foot Current Visit: Yes Status: Acute left foot assessed fissure appears to be chronic,no clinical signs of infection noted at this time Adaptic applied to try to soften hyperkeratotic skin 4 x 4's and Kerlix applied If skin softens, will perform sharp debridement of hyperkeratotic skin No need for acute intervention at this time Call with any issues or concerns (2) CKD (chronic kidney disease), stage III Current Visit: Yes Status: Acute (3) Type I diabetes mellitus Current Visit: Yes Status: Chronic Qualifiers: Diabetes mellitus complication status: with unspecified complications Qualified Code(s): E10.8 - Type 1 diabetes mellitus with unspecified complications Subjective Interval history: Patient was recently consulted to podiatry and scheduled for surgery due to ulceration of right foot. Nurse called last night and stated there was a crack to the patients left foot that the patient had forgot to tell anyone about. On arrival to the room the patient states she has had a crack to the left foot " for months" patient states she does not know when it started. states it has been "a long time". Patient states it does not hurt or bother her at this time. Patient denies any recently redness, edema or drainage to site. Dressing to RLE intact and patient scheduled for OR visit with in AM Objective - Vital Signs Vital Signs: Vital Signs Temp Pulse Resp BP Pulse Ox 12/26/16 04:33 97.7 F 85 14 106/70 96 12/25/16 23:00 98.3 F 84 14 106/72 97 12/25/16 19:40 97 12/25/16 18:57 98.5 F 87 14 110/69 97 Intake and Output 12/25/16 12/26/16 12/26/16 23:59 07:59 15:59 Intake Total 947 / 947 0 / 0 Output Total 1000 / 1000 800 / 800 Balance -53 / -53 -800 / -800 Intake: IV Fluids 587 / 587 0.9 % Sodium Chloride 1, 237 / 237 000 ML @ 75 mls/hr IVC . [id number] [facility] Rx#: [id number] Zosyn 3.375 GM In 100 / 100 Dextrose 5% (Minibag+) 100 ML 100 ML @ 25 mls/hr IVPB Q8HR [facility] Rx#: [id number] Vancocin 1,250 MG In 250 / 250 Dextrose 5% 250 ML @ 166. 67 mls/hr IVPB Q12H [facility] Rx#:[id number] Oral 360 / 360 0 / 0 Output: Urine 1000 / 1000 800 / 800 Other: Meal NPO Weight 87.2 kg Blood Glucose* 215 252 Patient Weight 12/26/16 23:59 Weight 87.2 kg - Exam Exam: General Examination: CONSTITUTIONAL: Alert, oriented, in no acute distress, non-toxic. EXTREMITIES: CFT 3 seconds all toes. Edema +1 and pedal pulses palpable. SKIN: Skin with decreased turgor, decreased subcutaneous tissue, skin thin and shiny with trophic changes associated with comorbidities as described in history.. NEUROLOGIC:Intact sensation to moderate touch Skin: Skin fissure noted between toes #3 #4, oblique, plantar aspect of left foot. Hyperkeratotic skin noted surrounding fissure. Appears to be old but not healed. Very small opening in cleavage of fissure. No clinical signs of infection. No drainage, edema, erythema, warmth, odor, fluctuance or streaking. No pain with palpation. - Lab Result Diagrams: 12/26/16 04:26 12/26/16 04:26 Labs: Abnormal lab results Hgb 11.2 g/dL (11.5-15.4) L D 12/26/16 04:26 Hct 33.6 % (35.3-44.9) L 12/26/16 04:26 ESR 75 mm/hr (0-15) H 12/25/16 11:14 VBG pO2 53 mmHg (25-40) H 12/24/16 21:32 Glucose 279 mg/dL (70-99) H 12/26/16 04:26 POC Glucose 252 (58-89) H 12/26/16 05:59 Hemoglobin A1c >= 14.1 % (-5.6) H 12/24/16 19:25 Calcium 8.0 mg/dL (8.6-10.8) L 12/26/16 04:26 Magnesium 1.3 mg/dL (1.6-2.6) L 12/26/16 04:26 C-Reactive Protein 40 mg/L (Less than 5) H 12/25/16 11:14 Triglycerides 232 mg/dL (< 150) H 12/26/16 04:26 Cholesterol 214 mg/dL (< 200) H 12/26/16 04:26 LDL Cholesterol, Calc 135 mg/dL (0-99) H 12/26/16 04:26 VLDL Cholesterol, Calc 46 mg/dL (< 31) H 12/26/16 04:26 HDL Cholesterol 33 mg/dL (40-59) L 12/26/16 04:26 Cholesterol/HDL Ratio 6.5 (0-4.9) H 12/26/16 04:26 Beta-Hydroxybutyric Acd 0.34 mmol/L (0.02-0.27) H 12/24/16 21:32 Ur Specific [place] > 1.030 (1.010-1.025) H 12/24/16 21:51 Urine Protein 100 mg/dL (Neg-Trace) H 12/24/16 21:51 Urine Glucose (UA) >=1000 mg/dL (Normal) H 12/24/16 21:51 Urine Blood Large (Negative) H 12/24/16 21:51 Consult Discharge Plan - Plan Referrals: Aparna Jhaveri DYNO TECHNICIAN [Advanced Practice Nurse] - 01/04/17 3:00 pm
[2016-12-26] MEDS: *HR* HYDROcodone/Acet 5/325 mg TABLET PO PRN ×2 (10:01→16:48)
--- NOTE | 2016-12-26 11:06 | Nuclear Medicine Stress Report ---
Regadenoson Nuclear Stress Name: Deb Deleon Date of Study: 12/26/2016 Date: 1970 Ht: 66.0 in Medical Record#: [id number] Age: 46 Wt: 192.0 lb Gender: Female Order #: [id number] Location: [facility] Room: [facility] Supervising Provider: Neri Linder CNP Reading Physician: Arabella Almanza DO Ordering Physician: Raul Rodriguez MD Primary Care Physician: None Stress Technologist: Sarha Calhoun LABOR UTILIZATION SUPERINTENDENT, CCT [employer] Boatswain: Timmy Baker Indications: Pre OP Impression: Perfusion imaging was negative for ischemia or infarct. Pharmacologic ECG was negative for ischemia at the level of heart rate achieved. Gated EF = 65%. History: History of Smoking Stress Test Summary: Stress Test Type: Pharmacologic Regadenoson 0.4mg/5ml given IV Baseline Information: Initial Heart Rate: 86 Blood Pressure: 124/82 Stress Information: Test Terminated Due to (primary): As per protocol Maximum Blood Pressure: 144/80 Maximum Heart Rate: 114 Percent Maximum Heart Rate Achieved: 65 Double Product: 55422 METS Reached: 1 Symptoms: No chest symptoms Nuclear Summary: SPECT myocardial perfusion imaging using Tc99m Sestamibi given intravenously was performed at rest and following cardiac stress testing. The resting images were obtained following initial dose of 11.5 mCi. Following stress an additional dose of 35.4 mCi was given at peak exercise or 30 seconds post regadenoson infusion. Medication Given: Time Medication Dose Units Route Findings: Stress Note * Resting ECG demonstrated normal sinus rhythm. * Pharmacologic stress ECG is negative for ischemia at level of heart rate achieved. * No arrhythmias were noted during stress. * Patient had no chest pain during stress. Hemodynamic responses * Normal hemodynamic responses to pharmacologic stress. Study Quality * Study quality is good. Gated EF % * Gated EF = 65%. Left Ventricle * The left ventricle is not dilated. TID * No evidence of transient ischemic dilatation. Lung Uptake * There is no evidence of increase lung uptake. NORMALS * Normal wall motion. * There is a small sized, mild intensity fixed defect involving the apex with normal wall motion. This represents artifact. * Other segments demonstrate normal rest and stress perfusion. Updated by Arabella Almanza on 12/26/2016 10:59:14 AM electronically signed on 12/26/2016 11:00:35 AM with status of Final
--- NOTE | 2016-12-26 11:21 | Internal Med Progress Note ---
Date of Encounter: 12/26/16 Time of Encounter: 11:19 - Assessment and plan (1) At risk for medication nonadherence Current Visit: Yes Status: Acute Assessment and plan: Social service consult. I have counseled patient extensively about the importance of compliance with her medication regimen, especially with insulin. (2) Hypomagnesemia Current Visit: Yes Status: Acute Assessment and plan: I treated this with IV magnesium repletion since patient was nothing by mouth for stress test. (3) Acute osteomyelitis of toe of right foot Current Visit: Yes Status: Acute Assessment and plan: We will continue treatment with Zosyn and vancomycin empirically. Follow up blood culture. ESR and CRP done yesterday noted to be elevated consistent with osteomyelitis. Plan for PICC line placement for continued home IV antibiotic treatment for at least 10 days prior and post discharge. Tentative PICC line placement tomorrow. She has not had a risk for morbidity and complications due to IV vancomycin which requires intensive blood level monitoring for toxicity. (4) Cellulitis of right lower extremity Current Visit: Yes Status: Acute Assessment and plan: Continue broad-spectrum IV antibiotics. Wound culture result noted. Adequately covered with Zosyn. (5) DVT prophylaxis Current Visit: Yes Status: Acute Assessment and plan: We will treat this with prophylactic Lovenox as the patient is minimally ambulatory and has bilateral wounds and cellulitis of the right toe. (6) Poorly controlled diabetes mellitus Current Visit: Yes Status: Acute (7) Nicotine dependence with nicotine-induced disorder Current Visit: Yes Status: Chronic Assessment and plan: I have counseled patient about the benefits of smoking cessation. We will provide nicotine replacement therapy. Qualifiers: Nicotine product type: cigarettes Qualified Code(s): F17.219 - Nicotine dependence, cigarettes, with unspecified nicotine-induced disorders (8) Type I diabetes mellitus Current Visit: Yes Status: Chronic Assessment and plan: Uncontrolled diabetes. senior health educator consult. Continue insulin Levemir and sliding scale. Qualifiers: Diabetes mellitus complication status: with unspecified complications Qualified Code(s): E10.8 - Type 1 diabetes mellitus with unspecified complications - Subjective Interval history: Patient presented to the hospital yesterday for evaluation of right toe swelling and redness that has been going on for several weeks, currently she reports no associated pain. She denies chest pain shortness of breath nausea vomiting diarrhea, denies fevers and chills. She had a stress test done this morning which she tolerated well. She denied any chest pain associated with a stress test. - Constitutional Vitals: Temp Pulse Resp BP Pulse Ox 97.7 F 85 14 106/70 96 12/26/16 04:33 12/26/16 04:33 12/26/16 04:33 12/26/16 04:33 12/26/16 04:33 General appearance: Present: cooperative, mild distress, A&O X 3, obese, answers questions appropriately - Eye Eye exam: Present: PERRL, conjuntiva pink, sclera anicteric Pupils: Present: PERRL - Respiratory Respiratory exam: Present: CTAB. Absent: accessory muscle use, rales, rhonchi, wheezes - Cardiovascular Cardiovascular exam: Present: RRR, +S1, +S2. Absent: diastolic murmur, gallop, rubs, systolic murmur - GI/Abdominal GI/Abdominal exam: Present: normal bowel sounds, soft, no peritoneal signs. Absent: distended, tenderness - Extremities Exam Additional comments: Both feet covered with dry dressing clean and intact, no apparent discharge. - Neurological Exam Neurological exam: Present: CN II-XII intact, oriented X3, no focal deficits. Absent: pronater drift, facial droop, speech deficit Internal Medicine: Result - Labs CBC & Chem 7: 12/26/16 04:26 12/26/16 04:26 Labs: Short CBC 12/26/16 Range/Units 04:26 WBC 9.2 (4.3-11.1) K/mcL Hgb 11.2 L D (11.5-15.4) g/dL Hct 33.6 L (35.3-44.9) % Plt Count 364 (140-400) K/mcL Neutrophils # 5.4 (1.6-8.9) K/mcL BMP 12/26/16 04:26 Sodium 136 Potassium 3.7 Chloride 106 Carbon Dioxide 22 BUN 16 Creatinine 0.92 Glucose 279 H Calcium 8.0 L Cardiac Enzymes 12/26/16 Range/Units 04:26 Troponin I 0.00 (0-0.03) ng/mL Consult Discharge Plan - Plan Referrals: Aparna Jhaveri, STEAMBLASTER [Advanced Practice Nurse] - 01/04/17 3:00 pm
[2016-12-26] MEDS: *HR* Heparin 5,000 UNIT/ML VIAL SQ SCH ×2 (13:43→21:36)
[2016-12-26] MEDS: 0.9 % Sodium Chloride 1,000 ML IVC SCH (13:44)
--- NOTE | 2016-12-26 14:26 | Podiatry Progress Note ---
Date of Encounter: 12/26/16 Time of Encounter: 13:00 - Assessment and Plan (1) Osteomyelitis of toe of right foot Current Visit: Yes Status: Acute Assessment: #1 acute and chronic osteomyelitis right great toe involving the IP joint. #2 cellulitis of the right great toe and foot #3 diabetes out of control #4 diabetes with neuropathy Plan: #1 agree with present antibiotics therapy #2 continue cleansing the wound with soap and water apply dry sterile dressing #3 discussed the need for open bone biopsy possible debridement of all the infected bone tissue versus amputation of the right great toe. #4 discussed risks versus benefits as well as alternatives to surgical intervention versus long-term IV antibiotics. Regardless the patient will likely need postoperative IV antibiotics but for minimal amount of time if we are to perform amputation versus localized surgical debridement of all infected tissue and bone. We discussed the fact that the toe would not be likely to be a mirror image of the left great toe after removing all the infected bone and tissue and that function of the toe would be compromised as well. The only upside would be cosmesis, but still the toe would not be of the same size were positioned and the possibility of amputation is still exists and that long-term IV antibiotics can also have an adverse effect on her kidney function. Also discussed the need for smoking cessation and glucose control. We discussed the possibility of risks that include loss of toe or toes foot leg or life, need for further surgery need for long-term antibiotics failure procedure to produce desired results. Patient voiced comprehension as did her . Patient and has ample opportunity to ask questions about possible procedure and types of anesthetic that could be employed. All questions are answered. We will revisit this subject later this afternoon to discuss patient's concerns and decision as to whether we perform limited debridement or amputation of the toe. Subjective Principal diagnosis: Osteomyelitis right great toe Interval history: This 46-year-old female long history of diabetes under marginal control with a 30+ pack year history of cigarettes sustained a wound on the lateral aspect of her right great toe. Initially was a blister she presented to the ED in October of this year. She then returned to the ED several days ago with a draining wound a large ulceration penetrating to the bone with global edema of the great toe erythema cellulitis that has not been controlled and is becoming progressively worse. She did not complain of any chest pain nausea vomiting fever or chills although she did have a sense of fatigue and malaise. Cursory exam reveals a spontaneously draining ulcer on the lateral aspect of her right great toe review of x-rays reveal osteomyelitis of the proximal and distal phalanx Objective - Vital Signs Vital Signs: Vital Signs Temp Pulse Resp BP Pulse Ox 12/26/16 11:29 98.1 F 86 18 123/81 96 12/26/16 04:33 97.7 F 85 14 106/70 96 12/25/16 23:00 98.3 F 84 14 106/72 97 12/25/16 19:40 97 12/25/16 18:57 98.5 F 87 14 110/69 97 Intake and Output 12/25/16 12/26/16 12/26/16 23:59 07:59 15:59 Intake Total 947 / 947 350 / 350 1233 / 1233 Output Total 1000 / 1000 800 / 800 0 / 0 Balance -53 / -53 -450 / -450 1233 / 1233 Intake: IV Fluids 587 / 587 350 / 350 1113 / 1113 0.9 % Sodium Chloride 1, 237 / 237 763 / 763 000 ML @ 75 mls/hr IVC . [id number] [facility] Rx#: [id number] Zosyn 3.375 GM In 100 / 100 100 / 100 100 / 100 Dextrose 5% (Minibag+) 100 ML 100 ML @ 25 mls/hr IVPB Q8HR [facility] Rx#: [id number] Vancocin 1,250 MG In 250 / 250 250 / 250 250 / 250 Dextrose 5% 250 ML @ 166. 67 mls/hr IVPB Q12H [facility] Rx#:[id number] Oral 360 / 360 0 / 0 120 / 120 Output: Urine 1000 / 1000 800 / 800 0 / 0 Other: Meal NPO Weight 87.2 kg Blood Glucose* 215 252 249 Patient Weight 12/26/16 23:59 Weight 87.2 kg - Exam Exam: Exam: 46-year-old female lying recumbent in bed accompanied by her was present throughout consultation. Afebrile normotensive alert and oriented 3 with dressings on both feet. Vascular: Pedal pulses are readily palpable graded 2/4 DP and PT bilaterally. No cyanosis of the digits. No pallor on elevation or rubor on dependency global edema of the right great toe with localized cellulitis involving the digits no ascending cellulitis. Capillary rebound time is less than 3 seconds to all toes. Neurologic: Complete loss of protective sensation from toes to tibial bilaterally. DTRs Achilles and patellar equal and symmetrical. Babinskis absent clonus is negative. No spasticity, no rigidity. No flaccidity. Loss of protective sensation is noted decreased epicritic and proprioception from toes to tibial bilaterally. Musculoskeletal: no gross defect or deformity adequate range of motion of the ankle subtalar metatarsalgia with joint without pain or crepitus. Integument: Ulceration lateral aspect of the IP joint right great toe measuring approximately 2 cm in length 0.5 cm in width 0.7 cm in depth. Skin edges are rolled. Global edema of the right great toe. Serosanguineous drainage minimal. Left foot we see a dry fissure/callus on the plantar sulcus of the third webspace without evidence of penetration of the dermis or cellulitis or active infection. Fissure is dry. - Radiology X-Rays: image reviewed - Lab Result Diagrams: 12/26/16 04:26 12/26/16 04:26 Labs: Abnormal lab results Hgb 11.2 g/dL (11.5-15.4) L D 12/26/16 04:26 Hct 33.6 % (35.3-44.9) L 12/26/16 04:26 ESR 75 mm/hr (0-15) H 12/25/16 11:14 VBG pO2 53 mmHg (25-40) H 12/24/16 21:32 Glucose 279 mg/dL (70-99) H 12/26/16 04:26 POC Glucose 252 (58-89) H 12/26/16 05:59 Hemoglobin A1c >= 14.1 % (-5.6) H 12/24/16 19:25 Calcium 8.0 mg/dL (8.6-10.8) L 12/26/16 04:26 Magnesium 1.3 mg/dL (1.6-2.6) L 12/26/16 04:26 C-Reactive Protein 40 mg/L (Less than 5) H 12/25/16 11:14 Triglycerides 232 mg/dL (< 150) H 12/26/16 04:26 Cholesterol 214 mg/dL (< 200) H 12/26/16 04:26 LDL Cholesterol, Calc 135 mg/dL (0-99) H 12/26/16 04:26 VLDL Cholesterol, Calc 46 mg/dL (< 31) H 12/26/16 04:26 HDL Cholesterol 33 mg/dL (40-59) L 12/26/16 04:26 Cholesterol/HDL Ratio 6.5 (0-4.9) H 12/26/16 04:26 Beta-Hydroxybutyric Acd 0.34 mmol/L (0.02-0.27) H 12/24/16 21:32 Ur Specific [place] > 1.030 (1.010-1.025) H 12/24/16 21:51 Urine Protein 100 mg/dL (Neg-Trace) H 12/24/16 21:51 Urine Glucose (UA) >=1000 mg/dL (Normal) H 12/24/16 21:51 Urine Blood Large (Negative) H 12/24/16 21:51 Consult Discharge Plan - Plan Referrals: Aparna Jhaveri CNP [Advanced Practice Nurse] - 01/04/17 3:00 pm
[2016-12-26] MEDS ORDERED: *HR* Heparin 5,000 UNIT/ML VIAL SQ SCH (18:00)
[2016-12-26] MEDS ORDERED: Insulin DETEMIR 100 UNIT/ML X5UNITS SQ ONE (21:00)
--- NOTE | 2016-12-26 21:03 | Anesthesia Evaluation PreOp ---
Date of Encounter: 12/26/16 Time of Encounter: 21:01 - Past History Planned Operation: Debridement & poss R great toe amputation Cardiac History: Denies any Significant Hx Pulmonary History: Smoker TOP LIFT TRIMMER History: Denies Any Significant HX Other Medical History: Renal (stage III CKD, medullary sponge kidney), Diabetes Type II Anesthesia History: No Prior Anesthetic Complications Alcohol Use: none Drug use: none Medications and Allergies Insulin ASPART [NovoLOG] 0 unit SQ TIDWM 12/24/16 [History] Insulin Glargine [Lantus] 25 unit SQ HS 12/24/16 [History] Allergies codeine Allergy (Verified 12/24/16 16:56) Confusion - Meds/Allergy Pre-op Review Medications Reviewed: Yes Allergies Reviewed: Yes Beta Blockers on Current Med List: No Anesthesia Results - Labs 12/26/16 04:26 12/26/16 04:26 - Imaging EKG: report reviewed, image reviewed (SR) Additional studies: 12-26-2016 Nuclear stress test: Perfusion imaging negative for ischemia or infarct Pharmacologic ECG negative for ischemia at level of HR achieved Gated EF 65% Anesthesia Exam Last Vital Signs Temp 97.8 F 12/26/16 20:35 Pulse 80 12/26/16 20:35 Resp 16 12/26/16 20:35 BP 134/83 12/26/16 20:35 Pulse Ox 97 12/26/16 20:35 Weight: 87 kg - HEENT Pupil (Motor): Pupils equal, EOMI Mallampati: II Teeth: Missing, Poor dentition Oral Opening: Greater than 3 - TOP LIFT TRIMMER LOC: Oriented TOP LIFT TRIMMER Motor: Normal RUE, Normal LUE, Normal RLE, Normal LLE, Normal Face - Cardiac Rhythm: Regular Murmur: None - Pulmonary Breath Sounds: bilateral Clear Respiratory Effort: Symmetrical Anesthesia Assess/Plan ASA Score: 3 Modified Baltazar Scale for Level of Consciousness: Cooperative, oriented, and tranquil Anesthetic Plan: MAC Monitoring Plan: Standard Monitors Recovery Plan: PACU
[2016-12-26] MEDS: Insulin DETEMIR 100 UNIT/ML X5UNITS SQ SCH (21:35)
[2016-12-27] MEDS: Piperacillin/Tazobactam 3.375 GM in D5% in Water (Mini-Bag+) 100 ML IVPB SCH ×2 (00:06→08:27)
[2016-12-27] MEDS: *HR* HYDROcodone/Acet 5/325 mg TABLET PO PRN (00:07)
[2016-12-27] MEDS: *HR* Heparin 5,000 UNIT/ML VIAL SQ SCH ×3 (04:37→21:14)
[2016-12-27 04:52] LABS: Basophils # 0.1 K/mcL (0.0-0.2); Basophils % 0.7 %; Eosinophils # 0.2 K/mcL (0.0-0.6); Eosinophils % 2.4 %; Hemoglobin 11.1 g/dL (11.5-15.4); Immature Granulocytes % 0.3 % (0-4); Lymphocytes # 3.5 K/mcL (0.6-4.6); Lymphocytes % 39.6 %; Mean Corpuscular HGB Conc 33.6 g/dL (31.6-35.5); Mean Corpuscular Hemoglobin 29.5 pg (28.0-33.3); Mean Corpuscular Volume 87.8 fL (83.0-100.0); Monocytes # 0.5 K/mcL (0.0-1.3); Monocytes % 5.7 %; Neutrophils # 4.5 K/mcL (1.6-8.9); Platelet Count 369 K/mcL (140-400); Red Blood Count 3.76 M/mcL (3.82-4.97); Red Cell Distribution Width 12.9 % (11.5-14.5); Segmented Neutrophils % 51.3 %
[2016-12-27 05:13] LABS: BUN/Creatinine Ratio 11 (6-26); Blood Urea Nitrogen 10 mg/dL (7-20); Carbon Dioxide 23 mEq/L (19-29); Chloride 105 mEq/L (98-109); Glucose 275 mg/dL (70-99); Magnesium 1.2 mg/dL (1.6-2.6); Osmolality,Calculated 287 (280-300); Potassium 3.7 mEq/L (3.5-4.5); Sodium 134 mEq/L (136-145); eGFR For African Americans > 60 (> 60); eGFR For Non-African Americans > 60 (> 60)
[2016-12-27] MEDS: Insulin LISPRO 300 UNITS/3 ML VIAL SQ SCH ×6 (08:13→16:40)
[2016-12-27] MEDS: Nicotine 14 MG PATCH.TD24 TD SCH (08:35)
[2016-12-27] MEDS ORDERED: Bupivacaine/EPI 1:200k 0.25%PF 30 ML VIAL ONE (09:40)
[2016-12-27] MEDS ORDERED: Propofol 500 MG/50 ML INFUS..BTL ONE (09:57)
[2016-12-27] MEDS ORDERED: *HR* Midazolam HCl 2 MG/2 ML VIAL ONE (09:57)
[2016-12-27] MEDS ORDERED: *HR* FentaNYL (PF) 100 MCG/2 ML VIAL ONE (09:57)
--- NOTE | 2016-12-27 11:24 | Orthopedic Operative Note ---
Date of procedure: 12/27/16 Pre-op diagnosis: Osteomyelitis right great toe, with ulceration/soft tissue defect Post-op diagnosis: same Procedure: 12/27/16 11:17 #1 amputation right great toe at the metatarsophalangeal joint with primary closure. #2 adjacent tissue transfer with remodeling and repositioning of dorsal and plantar flaps 12/27/16 11:28 Implants: None Complications: None Anesthesia: MAC, local Local Anesthetics: 0.25% Sensorcaine HCL SubQ (cc) Surgeon: Petar Campos Estimated blood loss (cc): 10 Tourniquet Time (Minutes): 0 Specimen: Swab cultures aerobic and anaerobic, bone culture tissue specimen right #1 Condition: stable Disposition: floor Procedure in Detail: 12/27/16 11:18 Detail summary of procedure: Patient brought to surgical suite. Sign in procedure performed. Patient positioned properly safely securely on the bed by elevating the right foot on the foam block. No tourniquet was used. Right ankle was then prepped with alcohol. Anesthetic timeout taken patient was blocked/ carried out without difficulty. Right foot was then prepped and draped in usual sterile manner. surgical timeout taken. Planned incision was placed with a Skin Skribe beginning at the medial aspect first metatarsophalangeal joint and brought distally at the junction of the medial plantar skin circumferentially around the toe the lateral aspect where a ulceration/blowout lesion was noted. It was carried onto the dorsal lateral aspect of the base of the great toe. Transverse incision was drawn with a Skin Skribe beginning at the medial aspect of the IP joint transversely across the toe being the lateral plantar aspect of the drawn incision. At that juncture incision was placed beginning medially and then circumferentially around the distal aspect of the toe 2 semielliptical incisions were used to excise the ulceration of the lateral aspect of the toe. The transverse incision was then begun and completed using a #15 scalpel blade from medial to lateral. After excising the ulceration all necrotic tissue the IP joint was then incised from distal to proximal and then the dissection was continued at the plantar aspect of the distal phalanx creating a plantar flap. The distal dorsal aspect of the great toe was then resected/amputated. It was sent for pathology. That juncture a periosteal flap was raised from distal to proximal on the dorsal aspect of the proximal phalanx to the level of the MTPJ with the capsular structures were then incised circumferentially #15 scalpel blade. The proximal phalanx was sent for bone culture. The head of the first metatarsal was noted to be pristine without evidence of infection. Flexor tendon was freed from its peritenon from distal to proximal. Fresh edge of the tendon was identified and divided cleanly in transverse fashion it was then sewn to the dorsal aspect head of first metatarsal with 4-0 Vicryl. The plantar flap was then revised with a #15 scalpel blade. The wound was then flushed with copious amounts sterile saline. By no bone chips or debris any nonviable tissue that was discovered was gently debrided with a tenotomy scissor pickup. There is no active bleeding necessitated using the Bovie ligature. Satisfied be a clean wound. The wound was then inspected again. Irrigated again with saline. The wound was sprayed with PRP. Skin flaps were then transferred repositioned and sutured with 3-0 Prolene. Wound edges were viable with capillary refill time less than 2 seconds on the dorsal and plantar flaps. No complications ensued estimated blood loss less than 10 mL. Patient tolerated procedure well and was sent to the holding room in good condition with vital signs stable. 12/27/16 11:27
[2016-12-27] MEDS ORDERED: Acetaminophen 325 MG TABLET PO PRN (11:51)
[2016-12-27] MEDS ORDERED: Ondansetron 4 MG/2 ML VIAL IVP PRN (11:51)
[2016-12-27] MEDS ORDERED: D5% in Water 1,000 ML IV PRN (11:51)
[2016-12-27] MEDS ORDERED: *HR* Dextrose 50 % in Water (Syg) 50 ML SYRINGE IVP PRN (11:51)
[2016-12-27] MEDS ORDERED: Naloxone 0.4 MG/ML INJ IVP PRN (11:51)
[2016-12-27] MEDS ORDERED: Dextrose Gel 15 GM PO PRN ×2 (11:51)
[2016-12-27] MEDS: *HR* Morphine 2 MG/ML SYRINGE IVP PRN ×2 (14:12→19:32)
[2016-12-27] MEDS ORDERED: Piperacillin/Tazobactam 3.375 GM in D5% in Water (Mini-Bag+) 100 ML IVPB SCH (16:00)
[2016-12-27] MEDS: Vancomycin 1,250 MG in D5% in Water 250 ML IVPB SCH (16:47)
[2016-12-27] MEDS ORDERED: Magnesium Sulfate 2 GM in D5% in Water 100 ML IVPB ONE (17:05)
--- NOTE | 2016-12-27 17:05 | Internal Med Progress Note ---
Date of Encounter: 12/27/16 Time of Encounter: 14:00 - Assessment and plan (1) At risk for medication nonadherence Current Visit: Yes Status: Acute Assessment and plan: Social service consult. I have counseled patient extensively about the importance of compliance with her medication regimen, especially with insulin. (2) Hypomagnesemia Current Visit: Yes Status: Acute Assessment and plan: I treated this with IV magnesium repletion since patient was nothing by mouth for stress test. (3) Acute osteomyelitis of toe of right foot Current Visit: Yes Status: Acute Assessment and plan: We will switch Zosyn to Unasyn for anaerobic coverage and coverage of Streptococcus. Continue with vancomycin and follow-up blood cultures these remain negative consider discontinuing vancomycin in 24 hours. PICC line placement tomorrow. The patient had a right great toe amputation. Plan to continue IV antibiotics for a total of 7-10 days to cover Streptococcus, gram- negative rods and anaerobes. Follow-up blood cultures until completion. A good option for IV antibiotics upon discharge would be ertapenem. She remains at high risk for morbidity and complications due to IV vancomycin which requires intensive blood level monitoring for toxicity. (4) Cellulitis of right lower extremity Current Visit: Yes Status: Acute Assessment and plan: I will continue with broad-spectrum antibiotics for now. Follow-up blood cultures and intraoperative wound cultures. (5) DVT prophylaxis Current Visit: Yes Status: Acute Assessment and plan: We will treat this with prophylactic Lovenox as the patient is minimally ambulatory and has bilateral wounds and cellulitis of the right toe. (6) Poorly controlled diabetes mellitus Current Visit: Yes Status: Acute Assessment and plan: Continue insulin Levemir and Humalog. I will increase Levemir dosing. (7) Nicotine dependence with nicotine-induced disorder Current Visit: Yes Status: Chronic Assessment and plan: I have counseled patient about the benefits of smoking cessation. We will provide nicotine replacement therapy. Qualifiers: Nicotine product type: cigarettes Qualified Code(s): F17.219 - Nicotine dependence, cigarettes, with unspecified nicotine-induced disorders (8) Type I diabetes mellitus Current Visit: Yes Status: Chronic Assessment and plan: Uncontrolled diabetes. program director group work consult. Continue insulin Levemir and sliding scale. Qualifiers: Diabetes mellitus complication status: with unspecified complications Qualified Code(s): E10.8 - Type 1 diabetes mellitus with unspecified complications - Subjective Interval history: 12/27: Patient is status post right great toe amputation for osteomyelitis. She tolerated the procedure well. She reports no toe or foot pain. Denies fevers chills nausea vomiting. 12/26: Patient presented to the hospital yesterday for evaluation of right toe swelling and redness that has been going on for several weeks, currently she reports no associated pain. She denies chest pain shortness of breath nausea vomiting diarrhea, denies fevers and chills. She had a stress test done this morning which she tolerated well. She denied any chest pain associated with a stress test. - Constitutional Vitals: Temp Pulse Resp BP Pulse Ox 97.9 F 78 16 131/77 96 12/27/16 14:58 12/27/16 14:58 12/27/16 14:58 12/27/16 14:58 12/27/16 14:58 General appearance: Present: cooperative, mild distress, A&O X 3, obese, answers questions appropriately - Respiratory Respiratory exam: Present: CTAB. Absent: accessory muscle use, rales, rhonchi, wheezes - Cardiovascular Cardiovascular exam: Present: RRR, +S1, +S2. Absent: diastolic murmur, gallop, rubs, systolic murmur - GI/Abdominal GI/Abdominal exam: Present: normal bowel sounds, soft, no peritoneal signs. Absent: distended, tenderness - Extremities Exam Additional comments: Right foot wrapped in surgical dressing. - Skin Additional comments: Linear left plantar wound with no discharge or erythema Internal Medicine: Result - Labs CBC & Chem 7: 12/27/16 04:27 12/27/16 04:27 Labs: Short CBC 12/27/16 Range/Units 04:27 WBC 8.8 (4.3-11.1) K/mcL Hgb 11.1 L (11.5-15.4) g/dL Hct 33.0 L (35.3-44.9) % Plt Count 369 (140-400) K/mcL Neutrophils # 4.5 (1.6-8.9) K/mcL BMP 12/27/16 04:27 Sodium 134 L Potassium 3.7 Chloride 105 Carbon Dioxide 23 BUN 10 Creatinine 0.92 Glucose 275 H Calcium 8.0 L - Impressions Impressions Foot X-Ray 12/27/16 11:16 IMPRESSION: Postsurgical changes from resection of the 1st toe. D/ / 12/27/2016 11:46:19 Daily Shirley MD / jessica Interpreting Provider: Daily Shirley MD Consult Discharge Plan - Plan Referrals: Aparna Jhaveri SUPERINTENDENT REFUSE DISPOSAL [Advanced Practice Nurse] - 01/04/17 3:00 pm
[2016-12-27] MEDS: Ampicillin/Sulbactam 3,000 MG in 0.9 % Sodium Chloride Mini Bag 100 ML IVPB SCH ×2 (18:09→23:21)
[2016-12-27] MEDS ORDERED: Insulin DETEMIR 100 UNIT/ML X5UNITS SQ SCH (21:00)
[2016-12-27] MEDS: Insulin DETEMIR 100 UNIT/ML X5UNITS SQ SCH (21:20)
[2016-12-27] MEDS ORDERED: Vancomycin 1,250 MG in D5% in Water 250 ML IVPB SCH (23:00)
[2016-12-28] MEDS: *HR* Morphine 2 MG/ML SYRINGE IVP PRN (03:26)
[2016-12-28 04:48] LABS: Basophils # 0.1 K/mcL (0.0-0.2); Basophils % 0.5 %; Eosinophils # 0.2 K/mcL (0.0-0.6); Eosinophils % 1.9 %; Hematocrit 32.8 % (35.3-44.9); Hemoglobin 10.7 g/dL (11.5-15.4); Immature Granulocytes % 0.3 % (0-4); Lymphocytes # 2.6 K/mcL (0.6-4.6); Lymphocytes % 25.8 %; Mean Corpuscular HGB Conc 32.6 g/dL (31.6-35.5); Mean Corpuscular Hemoglobin 28.5 pg (28.0-33.3); Mean Corpuscular Volume 87.2 fL (83.0-100.0); Mean Platelet Volume 10.1 fL (9.4-12.4); Monocytes # 0.6 K/mcL (0.0-1.3); Neutrophils # 6.7 K/mcL (1.6-8.9); Platelet Count 380 K/mcL (140-400); Red Blood Count 3.76 M/mcL (3.82-4.97); Red Cell Distribution Width 13.1 % (11.5-14.5); Segmented Neutrophils % 65.5 %
[2016-12-28 05:09] LABS: BUN/Creatinine Ratio 15 (6-26); Blood Urea Nitrogen 12 mg/dL (7-20); Calcium 8.1 mg/dL (8.6-10.8); Carbon Dioxide 22 mEq/L (19-29); Chloride 108 mEq/L (98-109); Glucose 163 mg/dL (70-99); Osmolality,Calculated 289 (280-300); Potassium 3.9 mEq/L (3.5-4.5); Sodium 138 mEq/L (136-145); eGFR For African Americans > 60 (> 60); eGFR For Non-African Americans > 60 (> 60)
[2016-12-28] MEDS: Ampicillin/Sulbactam 3,000 MG in 0.9 % Sodium Chloride Mini Bag 100 ML IVPB SCH (05:22)
[2016-12-28] MEDS: *HR* Heparin 5,000 UNIT/ML VIAL SQ SCH ×3 (05:22→21:21)
[2016-12-28] MEDS: Vancomycin 1,250 MG in D5% in Water 250 ML IVPB SCH ×3 (05:24→19:14)
[2016-12-28] MEDS: *HR* HYDROcodone/Acet 5/325 mg TABLET PO PRN ×3 (06:09→20:04)
[2016-12-28] MEDS: Insulin DETEMIR 100 UNIT/ML X5UNITS SQ SCH ×2 (08:25→21:20)
[2016-12-28] MEDS: Insulin LISPRO 300 UNITS/3 ML VIAL SQ SCH ×7 (08:25→19:14)
[2016-12-28] MEDS: Nicotine 14 MG PATCH.TD24 TD SCH (08:26)
[2016-12-28] MEDS: Ertapenem 1,000 MG in 0.9 % Sodium Chloride Mini Bag 100 ML IVPB SCH (12:22)
--- NOTE | 2016-12-28 14:19 | Podiatry Progress Note ---
Date of Encounter: 12/28/16 Time of Encounter: 11:30 - Assessment and Plan (1) Fissure in skin of foot Current Visit: Yes Status: Acute Sharp debridement of callused lesion x1 to fissure of left foot to alleviate pressure, prevent ulceration and to allow for healing of fissure. Patient tolerated well No complications Small fissure remains but healthy tissue is noted surrounding area Instructed patient that this will need to be kept well moisturized at home after discharge and we will continue to monitor for healing at follow up appointments Adaptic 4x4 and kerlex applied at this time (2) CKD (chronic kidney disease), stage III Current Visit: Yes Status: Acute (3) Type I diabetes mellitus Current Visit: Yes Status: Chronic Qualifiers: Diabetes mellitus complication status: with unspecified complications Qualified Code(s): E10.8 - Type 1 diabetes mellitus with unspecified complications (4) Acute osteomyelitis of toe of right foot Current Visit: Yes Status: Acute dressing removed and operative site assessed Appears to be healing without issue Cleansed with saline, applied Betadine, applied Adaptic 4 x 4's and Kerlex instructed patient to elevate above level of heart at home instructed patient that she will be protective limited weight bearing with post op shoe Explained that will will need to place all weight to heel of foot Explained that she will need to call office with any sudden increase in pain, bleeding that does not stop with applied pressure, numbness or any fevers, chills, n/v flu like symptoms, calf pain or SOB May change surgical dressing daily or every other day depending on status on home care availability If maceration continues to be noted please pain incision site with betadine prior to dressing placement Cleanse with saline, adaptic, 4x4 and kerlex to operative site Will need to follow up in clinic in 1 week Please continue IV antibiotic coverage per internal medicine- thanks Subjective Principal diagnosis: Osteomyelitis right great toe Interval history: Patient is s/p right great toe amputation per . Patient is post op day #1. Patient states she has had intermittent pain but has been taking morphine and norco as prescribed. Patient resting comfortably in bed at this time. Patient denies any issues or needs at this time. Hospitalist also at bedside. States they are going to plan for discharge today on IV antibiotics. SW at bedside to set up IV infusion and dressing changes for home health care. Patient denies any fevers, chills, n/v or flu like symptoms, or calf pain Objective - Vital Signs Vital Signs: Vital Signs Temp Pulse Resp BP Pulse Ox 12/28/16 11:59 97.5 F L 90 16 132/80 95 12/28/16 07:55 98.3 F 85 17 125/81 96 12/28/16 04:10 98.6 F 89 16 134/81 95 12/28/16 00:40 98.8 F 87 14 132/80 97 12/27/16 18:51 98.1 F 89 16 121/76 95 12/27/16 14:58 97.9 F 78 16 131/77 96 Intake and Output 12/27/16 12/28/16 12/28/16 23:59 07:59 15:59 Intake Total 450 / 450 750 / 750 480 / 480 Output Total 0 / 0 650 / 650 500 / 500 Balance 450 / 450 100 / 100 -20 / -20 Intake: IV Fluids 450 / 450 350 / 350 Unasyn 3,000 MG In 0.9 % 200 / 200 100 / 100 Sodium Chloride (Mini-Bag +) 100 ML @ 200 mls/hr IVPB Q6HR [facility] Rx#: [id number] Vancocin 1,250 MG In 250 / 250 250 / 250 Dextrose 5% 250 ML @ 166. 67 mls/hr IVPB Q12H [facility] Rx#:[id number] Oral 0 / 0 400 / 400 480 / 480 Output: Urine 0 / 0 650 / 650 500 / 500 Other: Meal Lunch Percent of Meal Consumed 100% # Voids 1 Weight 86.4 kg Blood Glucose* 157 283 111 Patient Weight 12/28/16 23:59 Weight 86.4 kg - Exam Exam: Podiatry General Exam: General appearance: alert awake oriented X 3. Calm and pleasant, no acute distress.. Vascular: Pedal pulses +2/4 DP/PT , No evidence of cyanosis, pallor or rubor, Edema graded at 1+/4, Skin Temperature warm, No calf pain with manual compression. capillary refill time is immediate to digits. Neurologic: Sensation intact with light touch to foot. . Postop Exam: S/P Sutures intact to incision line, no signs of dehiscence. No open area, no drainage, no odor, expected mild erythema, no streaking. Minimal edema. Very small area of maceration noted to incision line. Slight pain with palpation of toe. Skin- Patient has callused fissure to plantar aspect of left foot between toes # 3 #4. Area is thick with hyperkeratotic skin and scant scabbing is noted to fissured area. - Lab Result Diagrams: 12/28/16 04:06 12/28/16 04:06 Labs: Abnormal lab results RBC 3.76 M/mcL (3.82-4.97) L 12/28/16 04:06 Hgb 10.7 g/dL (11.5-15.4) L 12/28/16 04:06 Hct 32.8 % (35.3-44.9) L 12/28/16 04:06 ESR 75 mm/hr (0-15) H 12/25/16 11:14 VBG pO2 53 mmHg (25-40) H 12/24/16 21:32 Glucose 163 mg/dL (70-99) H 12/28/16 04:06 POC Glucose 157 (58-89) H 12/27/16 20:24 Hemoglobin A1c >= 14.1 % (-5.6) H 12/24/16 19:25 Calcium 8.1 mg/dL (8.6-10.8) L 12/28/16 04:06 Magnesium 1.2 mg/dL (1.6-2.6) L 12/27/16 04:27 C-Reactive Protein 40 mg/L (Less than 5) H 12/25/16 11:14 Triglycerides 232 mg/dL (< 150) H 12/26/16 04:26 Cholesterol 214 mg/dL (< 200) H 12/26/16 04:26 LDL Cholesterol, Calc 135 mg/dL (0-99) H 12/26/16 04:26 VLDL Cholesterol, Calc 46 mg/dL (< 31) H 12/26/16 04:26 HDL Cholesterol 33 mg/dL (40-59) L 12/26/16 04:26 Cholesterol/HDL Ratio 6.5 (0-4.9) H 12/26/16 04:26 Beta-Hydroxybutyric Acd 0.34 mmol/L (0.02-0.27) H 12/24/16 21:32 Ur Specific [place] > 1.030 (1.010-1.025) H 12/24/16 21:51 Urine Protein 100 mg/dL (Neg-Trace) H 12/24/16 21:51 Urine Glucose (UA) >=1000 mg/dL (Normal) H 12/24/16 21:51 Urine Blood Large (Negative) H 12/24/16 21:51 Vancomycin Trough 29.7 mcg/mL (10-20) H* 12/26/16 23:02 Consult Discharge Plan - Plan Referrals: Aparna Jhaveri CNP [Advanced Practice Nurse] - 01/04/17 3:00 pm
--- NOTE | 2016-12-28 17:06 | Internal Med Progress Note ---
Date of Encounter: 12/28/16 Time of Encounter: 17:04 - Assessment and plan (1) Acute osteomyelitis of toe of right foot Current Visit: Yes Status: Acute Assessment and plan: jeremy being managed for acute osteomyelitis , bieng followed by podiatry and on IV antibiotics s/p amputation right great toe at the metatarsophalangeal joint with primary closure. wound care instructions as per podiatry. plan for dc with IV ertapenem, awaiting social work. arranged f/u with podiatry as OP (2) Poorly controlled diabetes mellitus Current Visit: Yes Status: Acute Assessment and plan: Continue insulin Levemir and Humalog. ADA diet.fsg controlled today. - Time Spent With Patient 25 - 35 minutes - Subjective Interval history: patient seen at the bedside,denies any complains waiting for social work, plan dc with IV antibiotics, s/p amputtaion of toe of right foot. - Constitutional Vitals: Temp Pulse Resp BP Pulse Ox 97.6 F 83 17 121/77 98 12/28/16 15:36 12/28/16 15:36 12/28/16 15:36 12/28/16 15:36 12/28/16 15:36 General appearance: Present: cooperative, A&O X 3, no acute distress, obese, answers questions appropriately Exam: - Respiratory Respiratory exam: Present: CTAB. Absent: accessory muscle use, rales, rhonchi, wheezes - Cardiovascular Cardiovascular exam: Present: RRR, +S1, +S2. Absent: diastolic murmur, gallop, rubs, systolic murmur - GI/Abdominal GI/Abdominal exam: Present: normal bowel sounds, soft, no peritoneal signs. Absent: distended, tenderness - Extremities Exam Additional comments: Right foot wrapped in surgical dressing. Internal Medicine: Result - Labs CBC & Chem 7: 12/28/16 04:06 12/28/16 04:06 Labs: Short CBC 12/28/16 Range/Units 04:06 WBC 10.2 (4.3-11.1) K/mcL Hgb 10.7 L (11.5-15.4) g/dL Hct 32.8 L (35.3-44.9) % Plt Count 380 (140-400) K/mcL Neutrophils # 6.7 (1.6-8.9) K/mcL BMP 12/28/16 04:06 Sodium 138 Potassium 3.9 Chloride 108 Carbon Dioxide 22 BUN 12 Creatinine 0.82 Glucose 163 H Calcium 8.1 L Consult Discharge Plan - Plan Referrals: Aparna Jhaveri CNP [Advanced Practice Nurse] - 01/04/17 3:00 pm
[2016-12-29] MEDS: *HR* HYDROcodone/Acet 5/325 mg TABLET PO PRN ×4 (04:01→19:51)
[2016-12-29] MEDS: Vancomycin 1,250 MG in D5% in Water 250 ML IVPB SCH ×2 (04:01→16:47)
[2016-12-29] MEDS: *HR* Heparin 5,000 UNIT/ML VIAL SQ SCH ×3 (05:40→21:19)
[2016-12-29] MEDS: Insulin LISPRO 300 UNITS/3 ML VIAL SQ SCH ×6 (08:22→16:47)
[2016-12-29] MEDS: Ertapenem 1,000 MG in 0.9 % Sodium Chloride Mini Bag 100 ML IVPB SCH (08:23)
[2016-12-29] MEDS: Nicotine 14 MG PATCH.TD24 TD SCH (08:23)
[2016-12-29] MEDS: Insulin DETEMIR 100 UNIT/ML X5UNITS SQ SCH ×2 (08:24→21:15)
[2016-12-29 10:38] LABS: Basophils # 0.1 K/mcL (0.0-0.2); Basophils % 0.6 %; Eosinophils # 0.2 K/mcL (0.0-0.6); Hematocrit 34.3 % (35.3-44.9); Hemoglobin 11.2 g/dL (11.5-15.4); Immature Granulocytes % 0.3 % (0-4); Lymphocytes # 2.8 K/mcL (0.6-4.6); Lymphocytes % 30.1 %; Mean Corpuscular HGB Conc 32.7 g/dL (31.6-35.5); Mean Corpuscular Hemoglobin 28.3 pg (28.0-33.3); Mean Corpuscular Volume 86.6 fL (83.0-100.0); Mean Platelet Volume 9.5 fL (9.4-12.4); Monocytes # 0.6 K/mcL (0.0-1.3); Monocytes % 6.2 %; Neutrophils # 5.7 K/mcL (1.6-8.9); Platelet Count 404 K/mcL (140-400); Red Blood Count 3.96 M/mcL (3.82-4.97); Segmented Neutrophils % 60.8 %
[2016-12-29 10:48] LABS: BUN/Creatinine Ratio 16 (6-26); Blood Urea Nitrogen 14 mg/dL (7-20); Calcium 8.5 mg/dL (8.6-10.8); Carbon Dioxide 24 mEq/L (19-29); Chloride 106 mEq/L (98-109); Glucose 134 mg/dL (70-99); Osmolality,Calculated 290 (280-300); Potassium 3.6 mEq/L (3.5-4.5); Sodium 139 mEq/L (136-145); eGFR For African Americans > 60 (> 60); eGFR For Non-African Americans > 60 (> 60)
--- NOTE | 2016-12-29 17:09 | Internal Med Progress Note ---
Date of Encounter: 12/29/16 Time of Encounter: 17:04 - Assessment and plan (1) Acute osteomyelitis of toe of right foot Current Visit: Yes Status: Acute Assessment and plan: jeremy being managed for acute osteomyelitis , bieng followed by podiatry and on IV antibiotics s/p amputation right great toe at the metatarsophalangeal joint with primary closure. wound care instructions as per podiatry. antibiotics was changed to ertapenem yest, however has severe headache. wound cx growing klebsiella, group B strep and gram positive cocci. If there is no issue with HH, will change antibiotics to ceftriaxone and add something for gram positive cocci( final cx sensitivity pending) (2) Poorly controlled diabetes mellitus Current Visit: Yes Status: Acute Assessment and plan: Continue insulin Levemir and Humalog. ADA diet.fsg controlled today. - Time Spent With Patient 25 - 35 minutes - Subjective Interval history: patient seen at the bedside,c/p headache after the ertapenem yesterday adn also has some headache today. waiting for social work, plan dc with IV antibiotics, s/p amputtaion of toe of right foot. - Constitutional Vitals: Temp Pulse Resp BP Pulse Ox 98.0 F 87 18 123/78 97 12/29/16 15:11 12/29/16 15:11 12/29/16 15:11 12/29/16 15:11 12/29/16 15:11 General appearance: Present: cooperative, A&O X 3, no acute distress, obese, answers questions appropriately Exam: - Respiratory Respiratory exam: Present: CTAB. Absent: accessory muscle use, rales, rhonchi, wheezes - Cardiovascular Cardiovascular exam: Present: RRR, +S1, +S2. Absent: diastolic murmur, gallop, rubs, systolic murmur - GI/Abdominal GI/Abdominal exam: Present: normal bowel sounds, soft, no peritoneal signs. Absent: distended, tenderness - Extremities Exam both feet wrapped in dressig, no edema or tenderness. Internal Medicine: Result - Labs CBC & Chem 7: 12/29/16 10:20 12/29/16 10:20 Labs: Short CBC 12/29/16 Range/Units 10:20 WBC 9.3 (4.3-11.1) K/mcL Hgb 11.2 L (11.5-15.4) g/dL Hct 34.3 L (35.3-44.9) % Plt Count 404 H (140-400) K/mcL Neutrophils # 5.7 (1.6-8.9) K/mcL BMP 12/29/16 10:20 Sodium 139 Potassium 3.6 Chloride 106 Carbon Dioxide 24 BUN 14 Creatinine 0.86 Glucose 134 H Calcium 8.5 L Consult Discharge Plan - Plan Referrals: Aparna Jhaveri, [employer] [Advanced Practice Nurse] - 01/04/17 3:00 pm
[2016-12-30] MEDS: *HR* HYDROcodone/Acet 5/325 mg TABLET PO PRN ×3 (03:00→21:28)
[2016-12-30] MEDS: Vancomycin 1,250 MG in D5% in Water 250 ML IVPB SCH (05:23)
[2016-12-30] MEDS: *HR* Heparin 5,000 UNIT/ML VIAL SQ SCH ×3 (05:23→21:28)
[2016-12-30] MEDS: Nicotine 14 MG PATCH.TD24 TD SCH (07:39)
[2016-12-30] MEDS: Ertapenem 1,000 MG in 0.9 % Sodium Chloride Mini Bag 100 ML IVPB SCH (07:39)
[2016-12-30] MEDS: Insulin LISPRO 300 UNITS/3 ML VIAL SQ SCH ×6 (07:40→16:44)
[2016-12-30] MEDS ORDERED: Aminoglycoside Consult 1 EACH MC ONE (08:51)
[2016-12-30] MEDS: Insulin DETEMIR 100 UNIT/ML X5UNITS SQ SCH ×2 (09:42→21:29)
--- NOTE | 2016-12-30 11:29 | Internal Med Progress Note ---
Date of Encounter: 12/30/16 Time of Encounter: 11:27 - Assessment and plan (1) Acute osteomyelitis of toe of right foot Current Visit: Yes Status: Acute Assessment and plan: jeremy being managed for acute osteomyelitis , bieng followed by podiatry and on IV antibiotics s/p amputation right great toe at the metatarsophalangeal joint with primary closure. wound care instructions as per podiatry. antibiotics was changed to ertapenem yest, however has severe headache. wound cx growing klebsiella, group B strep and strep anginosus, all sensitive to ceftriaxone will stop ertapenem and vancomycin, start IV ceftriaxone. If there is no issue with HH, will dc with IV ceftriaxone. (2) Poorly controlled diabetes mellitus Current Visit: Yes Status: Acute Assessment and plan: Continue insulin Levemir and Humalog. ADA diet.fsg controlled today. - Time Spent With Patient 25 - 35 minutes - Subjective Interval history: patient seen at the bedside,seems to have not tolerated ertapenem due to persistent headache after starting the antibiotics. waiting for social work, plan dc with IV antibiotics, s/p amputtaion of toe of right foot. - Constitutional Vitals: Temp Pulse Resp BP Pulse Ox 98.0 F 87 18 127/88 95 12/30/16 11:24 12/30/16 11:24 12/30/16 11:24 12/30/16 11:24 12/30/16 11:24 General appearance: Present: cooperative, A&O X 3, no acute distress, obese, answers questions appropriately Exam: - Respiratory Respiratory exam: Present: CTAB. Absent: accessory muscle use, rales, rhonchi, wheezes - Cardiovascular Cardiovascular exam: Present: RRR, +S1, +S2. Absent: diastolic murmur, gallop, rubs, systolic murmur - GI/Abdominal GI/Abdominal exam: Present: normal bowel sounds, soft, no peritoneal signs. Absent: distended, tenderness - Extremities Exam both feet wrapped in dressig, no edema or tenderness. Internal Medicine: Result - Labs CBC & Chem 7: 12/29/16 10:20 12/29/16 10:20 Labs: Short CBC 12/29/16 Range/Units 10:20 WBC 9.3 (4.3-11.1) K/mcL Hgb 11.2 L (11.5-15.4) g/dL Hct 34.3 L (35.3-44.9) % Plt Count 404 H (140-400) K/mcL Neutrophils # 5.7 (1.6-8.9) K/mcL BMP 12/29/16 10:20 Sodium 139 Potassium 3.6 Chloride 106 Carbon Dioxide 24 BUN 14 Creatinine 0.86 Glucose 134 H Calcium 8.5 L Consult Discharge Plan - Plan Referrals: Aparna Jhaveri, RODEO RIDER [Advanced Practice Nurse] - 01/04/17 3:00 pm
[2016-12-31] MEDS: *HR* HYDROcodone/Acet 5/325 mg TABLET PO PRN ×3 (04:17→12:15)
[2016-12-31] MEDS: *HR* Heparin 5,000 UNIT/ML VIAL SQ SCH ×2 (05:42→14:12)
[2016-12-31] MEDS: Insulin LISPRO 300 UNITS/3 ML VIAL SQ SCH ×4 (07:48→12:12)
[2016-12-31] MEDS: Nicotine 14 MG PATCH.TD24 TD SCH (07:56)
[2016-12-31] MEDS: Insulin DETEMIR 100 UNIT/ML X5UNITS SQ SCH (07:57)
--- NOTE | 2016-12-31 09:29 | Discharge Summary ---
Date of Encounter: 12/31/16 Time of Encounter: 14:13 - Discharge Diagnosis (1) Acute osteomyelitis of toe of right foot Priority: Primary Status: Acute (2) Poorly controlled diabetes mellitus Priority: Secondary Status: Acute - Discharge Medications Prescriptions: HYDROcodone/Acet 5/325 mg [[place] 5-325 mg] 1 tab PO Q4HR PRN #30 tablet PRN Reason: Moderate Pain (4-6) CefTRIAXone [Rocephin] 1,000 mg IVPB Q12HR 7 Days Home Medications: Insulin ASPART [NovoLOG] 0 unit SQ TIDWM 12/24/16 [History] Insulin Glargine [Lantus] 25 unit SQ HS 12/24/16 [History] CefTRIAXone [Rocephin] 1,000 mg IVPB Q12HR 7 Days 12/31/16 [Rx] HYDROcodone/Acet 5/325 mg [[place] 5-325 mg] 1 tab PO Q4HR PRN #30 tablet [Rx] Allergies/Adverse Reactions: Allergies codeine Allergy (Verified 12/24/16 16:56) Confusion Date of admission: 12/25/16 13:51 Primary care physician: PCP NO Consults: 12/27/16 17:06 Consult to Wound Care [CONS] Routine Reason for Consult: diabetic wounds of both feet Call Completed: No 12/28/16 07:59 Consult to PICC team [Consult to Invasive Line Access Team] [CONS] Routine Reason for Consult: midline insertion for home iv Line Type: Midline Discharging clinician: Kamila Rodriguez Anticipated date of discharge: 12/31/16 - Patient Status Disposition: Home Health Service Condition: Fair Functional capacity at discharge: independent ambulation Overall status at discharge: patient is back to baseline - Discharge Instructions Follow Up With: [facility] [Provider Group] - 01/11/17 9:45 am (Patient will be seen by Akiko Cervantes. Thank you) Akiko Cervantes CNP [Partnered Physician] - 01/04/17 9:45 am Aparna Jhaveri CNP [Advanced Practice Nurse] - 01/04/17 3:00 pm - Diet and Activity Activity: resume usual activities as tolerated Diet: advance to your usual diet Interval History: Patient is admitted to [facility] via the emergency department when she presents in the company of family with complaints of pain and swelling of the right great toe.Cellulitis to the right great toe secondary to a full thickness ulceration to the lateral aspect of the right great toe with positive probe to bone consistent with acute osteomyelitis of the right great toe. Xray of right great toe on 12/25/15: acute cellulitis involving the great toe proximal involving the distal epiphysis. CT of RLE on 12/25/15: corticol erosion involving the distal aspect of the proximal phalanx 1st digit adjacent to the IP joint. WBC: 11.1. ESR: 75 CRP: 40 she was started on emperical IV antibiotics and she underwent amputation right great toe at the metatarsophalangeal joint with primary closure. and adjacent tissue transfer with remodeling and repositioning of dorsal and plantar flaps with Dr. Campos. wound cx growing klebsiella, group B strep and strep anginosus, all sensitive to ceftriaxone will thus dc her today on IV ceftriaxone to complete 7 days. Patient will follow up with podiatry as outpatient for wound care. Hospital course: Ms. Deleon is a 46 year old female Time spent discussing smoking cessation with patient: more than 10 minutes - Time Spent with Patient Total time spent providing and/or coordinating discharge services: Greater than 30 minutes - Constitutional Vitals: Temp Pulse Resp BP Pulse Ox 97.5 F L 86 15 138/87 95 12/31/16 05:31 12/31/16 05:31 12/31/16 05:31 12/31/16 05:31 12/31/16 05:31 General appearance: Present: cooperative, A&O X 3, no acute distress, obese, answers questions appropriately Exam: - Respiratory Respiratory exam: Present: CTAB. Absent: accessory muscle use, rales, rhonchi, wheezes - Cardiovascular Cardiovascular exam: Present: RRR, +S1, +S2. Absent: diastolic murmur, gallop, rubs, systolic murmur - GI/Abdominal GI/Abdominal exam: Present: normal bowel sounds, soft, no peritoneal signs. Absent: distended, tenderness - Extremities Exam both feet wrapped in dressig, no edema or tenderness.
--- NOTE | 2016-12-31 14:17 | Physician Discharge Referral ---
Home Health/Hosp Referral Info Transfer to: Home Health Attending Provider: eric castanon - Diagnosis (1) Acute osteomyelitis of toe of right foot Status: Acute (2) Poorly controlled diabetes mellitus Status: Acute - Respiratory Orders Smoking Cessation: Smoking cessation has been advised. For more information, call the [facility] Tobacco Quit Line at 3-883-NFEJ-NOW. - Diet/Nutrition Diet/Nutrition Orders: Regular, No Concentrated Sweets - Services Needed Following services are medically necessary services: Home Health Aide, Home Infusion - Transfer Medications Prescriptions: HYDROcodone/Acet 5/325 mg [[place] 5-325 mg] 1 tab PO Q4HR PRN #30 tablet PRN Reason: Moderate Pain (4-6) CefTRIAXone [Rocephin] 1,000 mg IVPB Q12HR 7 Days Home Medications: Insulin ASPART [NovoLOG] 0 unit SQ TIDWM 12/24/16 [History] Insulin Glargine [Lantus] 25 unit SQ HS 12/24/16 [History] CefTRIAXone [Rocephin] 1,000 mg IVPB Q12HR 7 Days 12/31/16 [Rx] HYDROcodone/Acet 5/325 mg [[place] 5-325 mg] 1 tab PO Q4HR PRN #30 tablet [Rx] Allergies/Adverse Reactions: Allergies codeine Allergy (Verified 12/24/16 16:56) Confusion Certification: Further, I certify that my clinical findings support that this patient is homebound (i.e. absences from home require considerable and taxing effort and are for medical reasons or restorationist services or infrequently or short duration when for other reasons) because: Homebound Reason: Patient requires assistance of a person or device to safely leave home Attestation: My signature below is to certify that this patient is under my care and that I, or nurse practitioner, or a physician's assisted living assistant working with me, has a face-to -face encounter with this patient.
[2016-12-31 15:38] VITALS: BP 133/72
--- NOTE | 2016-12-31 16:50 | Podiatry Progress Note ---
Date of Encounter: 12/31/16 Time of Encounter: 12:00 - Assessment and Plan (1) Acute osteomyelitis of toe of right foot Current Visit: Yes Status: Acute Cellulitis to the right great toe secondary to a full thickness ulceration to the lateral aspect of the right great toe with positive probe to bone consistent with acute osteomyelitis of the right great toe. Xray of right great toe on 12/25/15: acute cellulitis involving the great toe proximal involving the distal epiphysis. CT of RLE on 12/25/15: corticol erosion involving the distal aspect of the proximal phalanx 1st digit adjacent to the IP joint. Findings are new since the previous exam likely representing osteomyelitis. Dressing changed at bedside. Sutures intact to incision line. Patient will keep dressing dry and intact until f/u appointment in Podiatry clinic. Patient will be discharged with IV Rocephin and home health care. Remain with protective weight bearing with post op shoe. (2) CKD (chronic kidney disease), stage III Current Visit: Yes Status: Acute (3) Cellulitis of right lower extremity Current Visit: Yes Status: Acute (4) Poorly controlled diabetes mellitus Current Visit: Yes Status: Acute (5) Nicotine dependence with nicotine-induced disorder Current Visit: Yes Status: Chronic Qualifiers: Nicotine product type: cigarettes Qualified Code(s): F17.219 - Nicotine dependence, cigarettes, with unspecified nicotine-induced disorders (6) Fissure in skin of foot Current Visit: Yes Status: Acute 1. Keep fissure clean daily with mild soap and water, pat dry, apply triple antibiotic ointment with bandaid. Patient verbalized understanding. Subjective Principal diagnosis: Osteomyelitis right great toe Interval history: Patient is s/p amputation of right great toe by Dr. Campos on 12/27/16. Patient is resting in bed with dressing dry and intact. Patient states she is suppose to be discharged home today. Patient denies any fever, chills, cp, calf pain, sob or flu like symptoms. Objective - Vital Signs Vital Signs: Vital Signs Temp Pulse Resp BP Pulse Ox 12/31/16 15:36 97.8 F 82 16 133/72 97 12/31/16 10:00 97.9 F 94 17 107/69 95 12/31/16 05:31 97.5 F L 86 15 138/87 95 12/31/16 01:42 97.4 F L 87 15 118/75 97 12/30/16 20:23 97.8 F 85 16 132/81 96 Intake and Output 12/31/16 12/31/16 12/31/16 07:59 15:59 23:59 Intake Total 400 / 400 640 / 640 Output Total 1000 / 1000 400 / 400 Balance -600 / -600 240 / 240 Intake: IV Fluids 100 / 100 Rocephin 1,000 MG In 100 / 100 Dextrose 5% (Minibag+) 100 ML 100 ML @ 200 mls/ hr IVPB Q12HR [facility] Rx#: [id number] Oral 300 / 300 640 / 640 Output: Urine 1000 / 1000 400 / 400 Other: Meal Lunch Percent of Meal Consumed 90% Weight 87.09 kg 87.09 kg Blood Glucose* 95 113 Patient Weight 12/31/16 23:59 Weight 87.09 kg - Exam Exam: General appearance: alert awake oriented X 3. Calm and pleasant, no acute distress.. Vascular: Pedal pulses +2/4 DP/PT , No evidence of cyanosis, pallor or rubor, Edema graded at 1+/4, Skin Tempature warm, No calf pain with manual compression. capillary refill time is immediate to digits. Postop Exam: S/P Sutures intact to incision line, no signs of dehiscence. Light erythema with minimal edema, No open area, no drainage, no odor, no streaking. Left foot: dried blood observed to crack in skin of left foot at the plantar aspect, no periwound erythema, no drainage, no signs of bacterial infection. - Lab Result Diagrams: 12/29/16 10:20 12/29/16 10:20 Labs: Abnormal lab results Hgb 11.2 g/dL (11.5-15.4) L 12/29/16 10:20 Hct 34.3 % (35.3-44.9) L 12/29/16 10:20 Plt Count 404 K/mcL (140-400) H 12/29/16 10:20 ESR 75 mm/hr (0-15) H 12/25/16 11:14 VBG pO2 53 mmHg (25-40) H 12/24/16 21:32 Glucose 134 mg/dL (70-99) H 12/29/16 10:20 POC Glucose 113 (58-89) H 12/31/16 12:07 Hemoglobin A1c >= 14.1 % (-5.6) H 12/24/16 19:25 Calcium 8.5 mg/dL (8.6-10.8) L 12/29/16 10:20 Magnesium 1.2 mg/dL (1.6-2.6) L 12/27/16 04:27 C-Reactive Protein 40 mg/L (Less than 5) H 12/25/16 11:14 Triglycerides 232 mg/dL (< 150) H 12/26/16 04:26 Cholesterol 214 mg/dL (< 200) H 12/26/16 04:26 LDL Cholesterol, Calc 135 mg/dL (0-99) H 12/26/16 04:26 VLDL Cholesterol, Calc 46 mg/dL (< 31) H 12/26/16 04:26 HDL Cholesterol 33 mg/dL (40-59) L 12/26/16 04:26 Cholesterol/HDL Ratio 6.5 (0-4.9) H 12/26/16 04:26 Beta-Hydroxybutyric Acd 0.34 mmol/L (0.02-0.27) H 12/24/16 21:32 Ur Specific [place] > 1.030 (1.010-1.025) H 12/24/16 21:51 Urine Protein 100 mg/dL (Neg-Trace) H 12/24/16 21:51 Urine Glucose (UA) >=1000 mg/dL (Normal) H 12/24/16 21:51 Urine Blood Large (Negative) H 12/24/16 21:51 Microbiology, Last 48 Hours 12/27/16 10:10 Anaerobic Culture - Final Right Foot Anaerobic conditions were compromised due to failure of the anaerobic pouch to seal correctly, therefore, sample cannot be assessed for anaerobic organisms. 12/27/16 10:10 Wound Culture - Final Right Foot Klebsiella pneumoniae Strep agalactiae - (Group B) Streptococcus anginosus group 12/27/16 10:10 Wound Culture - Final Right Foot No growth. Consult Discharge Plan - Plan Referrals: [facility] [Provider Group] - 01/11/17 9:45 am (Patient will be seen by Akiko Cervantes. Thank you) Akiko Cervantes CNP [Partnered Physician] - 01/04/17 9:45 am Aparna Jhaveri CNP [Advanced Practice Nurse] - 01/04/17 3:00 pm Prescriptions: HYDROcodone/Acet 5/325 mg [[place] 5-325 mg] 1 tab PO Q4HR PRN #30 tablet PRN Reason: Moderate Pain (4-6) CefTRIAXone [Rocephin] 1,000 mg IVPB Q12HR 7 Days
== END 2016-12-31 17:04 | disposition home health service (06) | DRG 617 ==
LOC: EMEROO 16:26 → 3ANU 16:26 → SUATTDRO 12-25 13:51
PROVIDERS: ADMIT Internal Medicine; ATTEND Internal Medicine Endocrinology, Diabetes & Metabolism

== ENCOUNTER 2018-02-26 16:09 | Inpatient (IN) ==
[2018-02-26] MEDS ORDERED: Piperacillin/Tazobactam 3.375 GM in 0.9 % Sodium Chloride Mini Bag 100 ML IVPB ONE (18:11)
[2018-02-26] MEDS ORDERED: Vancomycin (wt based) 1,000 MG VIAL IVPB ONE (18:11)
--- NOTE | 2018-02-26 18:16 | Emergency Department Note ---
Disposition Clinical Impression: Foot abscess, Type I diabetes mellitus Disposition: Admitted As Inpatient Condition: Fair General Adult HPI - General Chief complaint: ED Extremity Problem,Nontraumatic Stated complaint: Left foot infection getting worse Source: patient Limitations: no limitations - History of Present Illness HPI Narrative: Patient was seen here recently with a diabetic foot infection, sent home on Keflex and Bactrim. Returns due to worsening of the infection. She had a tiny bump on her foot on initial evaluation, that is gotten much bigger. The erythema has also spread outside the skin saad that was made at time of initial evaluation. She has had no fever. No other systemic symptoms. Has not had vomiting, abdominal pain, chest pain, shortness of breath or any other complaint. Pain Scale: 8 - Related Data Home Medications Medication Instructions Recorded Confirmed Insulin ASPART [NovoLOG] 0 unit SQ TIDWM 12/24/16 02/26/18 Insulin Glargine [Lantus] 32 unit SQ HS 12/24/16 02/26/18 Metformin HCl [Glucophage] 1,000 mg PO BID 02/24/18 02/26/18 Sulfamethoxazole/Trimeth DS 1 tab PO BID 02/26/18 02/26/18 [Bactrim DS] Previous Rx's Medication Instructions Recorded Cephalexin [Keflex] 500 mg PO QID #40 capsule 02/24/18 Allergies Allergy/AdvReac Type Severity Reaction Status Date / Time codeine Allergy Confusion Verified 02/26/18 18:33 All systems ED: reviewed and negative except as stated. Past Medical History - Past Medical History Medical history: Reports: diabetes, kidney stones Surgical history: Reports: appendectomy Psychiatric history: Reports: no psych history BAKER DOUGHNUT history: Reports: no BAKER DOUGHNUT history - Social History Smoking Status: Current every day smoker Smokeless Tobacco Status: No Alcohol use: Reports: none Drug use: Reports: none Physical Exam Vital signs noted, please see nurses notes. General: Well-developed, well-nourished patient sitting up in bed who appears non-toxic. Head: Atraumatic, normocephalic. Eyes: Sclera anicteric. ENT: Mucous membranes moist. Respiratory: Normal respiratory pattern without respiratory distress. Skin: Warm and dry, no appreciable rash. Neurological: Awake and alert with normal speech, gait and mental status. No focal deficits or lateralizing signs. Muscular skeletal: She is status post amputation of the great toe on the affected foot. The erythema has spread outside of the skin armando that was made on initial evaluation. There is an abscess approximately 1 x 0.5 cm central to the area of erythema. There is some associated swelling. While the abscess itself is superficial, I am concerned about the possibility of deeper extension of the abscess. Psychiatric: Normal mood and affect. - General Limitations: no limitations General appearance: alert, in no apparent distress Course Vital Signs Temperature 98.1 F 02/26/18 16:18 Pulse Rate 113 02/26/18 16:18 Respiratory Rate 16 02/26/18 16:18 Blood Pressure 168/81 02/26/18 16:18 O2 Sat by Pulse Oximetry 98 02/26/18 16:18 Temperature 98.1 F 02/26/18 16:18 Pulse Rate 113 02/26/18 16:18 Respiratory Rate 16 02/26/18 16:18 Blood Pressure 168/81 02/26/18 16:18 O2 Sat by Pulse Oximetry 98 02/26/18 16:18 Oxygen Delivery Oxygen Delivery Room Air Medical Decision Making - MDM Narrative Medical decision making narrative: I spoke with Dr. meyers on-call for podiatry. Discussed the case in detail. He did not request imaging. He is going to evaluate the patient tonight. I offered to drain the abscess in the ED, but we will share the concern that the visible portion of the abscess may be just the tip of the iceberg, given the tenderness and swelling to the adjacent soft tissues. He is going to evaluate her on the floor and likely take her to the operating room tonight. She is well -appearing, but does meet SIRS criteria with tachycardia and leukocytosis. She would not be septic by any other definition. Current recommendations are to not use Sirs criteria as diagnostic criteria for sepsis. I have added a lactic acid since she meets SIRS criteria. I have not ordered blood cultures, as we are going to culture the source of the infection directly when the incision and drainage of the abscess is done, and this will get us better bacteriologic information than a blood culture was. I spoke with the hospitalist, who accepted patient for admission. - Lab Data Result diagrams: 02/26/18 18:23 Lab Results 02/26/18 Range/Units 18:23 WBC 12.1 H (4.3-11.1) K/mcL RBC 3.84 (3.82-4.97) M/mcL Hgb 11.4 L (11.5-15.4) g/dL Hct 33.7 L (35.3-44.9) % MCV 87.8 (83.0-100.0) fL MCH 29.7 (28.0-33.3) pg MCHC 33.8 (31.6-35.5) g/dL RDW 12.8 (11.5-14.5) % Plt Count 387 (140-400) K/mcL MPV 9.9 (9.4-12.4) fL
[2018-02-26 18:43] LABS: Hematocrit 33.7 % (35.3-44.9); Hemoglobin 11.4 g/dL (11.5-15.4); Mean Corpuscular HGB Conc 33.8 g/dL (31.6-35.5); Mean Corpuscular Hemoglobin 29.7 pg (28.0-33.3); Mean Corpuscular Volume 87.8 fL (83.0-100.0); Mean Platelet Volume 9.9 fL (9.4-12.4); Platelet Count 387 K/mcL (140-400); Red Blood Count 3.84 M/mcL (3.82-4.97); Red Cell Distribution Width 12.8 % (11.5-14.5)
[2018-02-26 18:58] LABS: BUN/Creatinine Ratio 13 (6-26); Blood Urea Nitrogen 15 mg/dL (6-20); Calcium 9.3 mg/dL (8.6-10.3); Carbon Dioxide 26 mEq/L (23-29); Chloride 102 mEq/L (98-107); Glucose 246 mg/dL (70-105); Osmolality,Calculated 287 (280-300); Potassium 4.2 mEq/L (3.5-5.1); Sodium 134 mEq/L (136-145); eGFR For African Americans > 60 (> 60); eGFR For Non-African Americans 53 (> 60)
--- NOTE | 2018-02-26 20:22 | Internal Med History&Physical ---
<CristianeRobinson - Last Filed: 02/26/18 22:41> Date of Encounter: 02/26/18 Time of Encounter: 20:00 Internal Medicine - H&P: HPI Chief complaint: Diabetic foot ulcer (right) Admitted From: Emergency Dept Plans for Post Hospital Care: Home History of present illness: Ms. Deleon is a 47 year old female with PMHx uncontrolled diabetes presents to ED with worsening right foot swelling 2/2 diabetic foot infection s/p first toe amputation at the level of the MTP joint on 10/2016. She was seen at ED 2 days ago, CT of right foot demonstrated 1.2cm abscess at the level of planter ulceration, complete collapse with fragmentation of 3rd metatarsal head related to chronic osteomyelitis vs avascular necrosis. There was no evidence of definite osteomyelitis and she was discharged with Keflex and bactrim. Today, she returns with worsening erythema that has spread outside of the skin saad. She states that bullous on medial aspect of right foot has also increased in size. Denies fever, chills, nausea, or vomiting. Denies CP, SOB. No other systemic symptoms. Past Med Surg Social Fam HX - Past Medical History Medical history: diabetes, kidney stones Psychiatric history: no psych history - Past Surgical History Surgical History: appendectomy - Social History Smoking Status: Current every day smoker Smokeless Tobacco Status: No Alcohol use: none Drug use: none - Family History Mother Adopted: No Family Member Ethnicity: Non- Living Status: Hx Family Cardiac Disorders: Yes (HTN) Hx Family Respiratory Disorders: No Hx Family Cancer: No Hx Family GI Disorders: No Hx Family Endocrine Disorder: Yes (DM) Hx Family Neuromuscular Disorders: No Hx Family Neurologic Disorders: No Hx Family HEENT Disorders: No Hx Family Autoimmune Disorders: No Internal Medicine - H&P: Meds Insulin ASPART [NovoLOG] 0 unit SQ TIDWM 12/24/16 [History] Insulin Glargine [Lantus] 32 unit SQ HS 12/24/16 [History] Cephalexin [Keflex] 500 mg PO QID #40 capsule 02/24/18 [Rx] Metformin HCl [Glucophage] 1,000 mg PO BID 02/24/18 [History] Sulfamethoxazole/Trimeth DS [Bactrim DS] 1 tab PO BID 02/26/18 [History] 3 Allergy/AdvReac Type Severity Reaction Status Date / Time codeine Allergy Confusion Verified 02/26/18 18:33 All Systems PM: A 10-system review of systems was performed and is negative for pertinent findings except as documented above in the HPI. - Constitutional Constitutional: no chills, no fever(s), no night sweats - EENT Eyes: no change in vision, no discharge, no pain, no photophobia Ears: no ear discharge, no ear pain, no tinnitus Nose, mouth and throat: no dysphagia, no nasal discharge, no neck pain, no sore throat - Cardiovascular Cardiovascular ROS IM: no chest pain, no diaphoresis, no dyspnea, no lightheadedness, no palpitations, no syncope - Respiratory Respiratory: no cough, no dyspnea, no wheezing, no excessive phlegm production - Gastrointestinal Gastrointestinal: no abdominal pain, no diarrhea, no hematemesis, no hematochezia, no melena, no nausea, no vomiting - Genitourinary Genitourinary: no change in urinary stream, no dysuria, no flank pain, no hematuria - Musculoskeletal Musculoskeletal ROS IM: no numbness, no tingling - Integumentary Integumentary IM: no rash, no unusual bruising Additional comments: right planter ulceration noted. 1.5cm bullous noted on medial right aspect of foot. Very tender to palpation. Erythema 2cm beyond demarcations. Erosion on 2nd digit of right foot with loss of sensation and strength. - Neurological Neurological ROS: no confusion, no convulsions, no focal weakness, no numbness, no tingling, no tremor(s) - Hematologic/Lymphatic Hematologic/Lymphatic: no easy bruising - Constitutional Vitals: Temp Pulse Resp BP Pulse Ox 98.1 F 97 18 160/97 100 02/26/18 16:18 02/26/18 19:34 02/26/18 19:34 02/26/18 19:34 02/26/18 19:34 General appearance: Present: A&O X 3, pleasant, no acute distress, answers questions appropriately - Head Head exam: Present: atraumatic, normocephalic - Eye Eye exam: Present: normal appearance, conjuntiva pink, sclera anicteric - Neck Neck exam general surgery: Present: supple, trachea midline. Absent: lymphadenopathy - Respiratory Respiratory exam: Present: CTAB. Absent: accessory muscle use, rales, rhonchi, wheezes - Cardiovascular Cardiovascular exam: Present: RRR, +S1, +S2. Absent: diastolic murmur, gallop, rubs, systolic murmur - GI/Abdominal GI/Abdominal exam: Present: normal bowel sounds, soft, no peritoneal signs. Absent: distended, tenderness - Extremities Exam Extremities exam: Present: joint swelling, warm, radial pulses palpable and symmetrical. Absent: calf tenderness, cyanotic, pedal edema Additional comments: right 2nd MCP erosion with loss of sensation. Very tender right medial aspect of right foot. Erythema noted beyond demarcations of last visit. - Neurological Exam Neurological exam: Present: alert, oriented X3. Absent: pronater drift, facial droop, speech deficit Additional comments: Loss of sensation and strength of 2nd right digit - Skin Skin exam: Present: dry, intact, warm Internal Med - H&P Results - Labs CBC & Chem 7: 02/26/18 18:23 02/26/18 18:23 - Assessment and plan (1) Plantar ulcer of right foot Current Visit: Yes Status: Acute Assessment and plan: Patient has worsening right foot ulceration despite Keflex and Bactrim, s/p right first toe amputation on October 2016. Continue with Vacomycine and [facility] recommends I&D on her foot as soon as possible, with possible resection of bone. Patient aware. Qualifiers: Qualified Code(s): L97.519 - Non-pressure chronic ulcer of other part of right foot with unspecified severity (2) Cellulitis of right lower extremity Current Visit: Yes Status: Acute Assessment and plan: Treat per above (3) Poorly controlled diabetes mellitus Current Visit: No Status: Acute Assessment and plan: Last A1C = 14.1% Continue with Home insulin Levemir 32 units qHS Monitor with AM labs low dose SSI Diabetic diet. (4) Obesity (BMI 30.0-34.9) Current Visit: No Status: Chronic (5) DVT prophylaxis Current Visit: No Status: Acute Assessment and plan: subQ heparin - Time Spent With Patient Total time spent is greater than 50% in coordination of care (as documented) at patient's floor/unit and/or counseling patient: Greater than 35 minutes <Federico Collier P - Last Filed: 02/27/18 10:48> Date of Encounter: 02/27/18 Internal Medicine - H&P: HPI History of present illness: Ms. Deleon is a 47 year old female All Systems PM: A 10-system review of systems was performed and is negative for pertinent findings except as documented above in the HPI. - Constitutional Vitals: Temp Pulse Resp BP Pulse Ox 98.1 F 100 16 109/69 95 02/27/18 10:34 02/27/18 10:34 02/27/18 10:34 02/27/18 10:34 02/27/18 10:34 Internal Med - H&P Results - Labs CBC & Chem 7: 02/27/18 03:18 02/27/18 03:18 Labs: Short CBC 02/27/18 Range/Units 03:18 WBC 12.2 H (4.3-11.1) K/mcL Hgb 10.9 L (11.5-15.4) g/dL Hct 32.6 L (35.3-44.9) % Plt Count 426 H (140-400) K/mcL Neutrophils # 8.4 (1.6-8.9) K/mcL BMP 02/27/18 03:18 Sodium 137 Potassium 3.7 Chloride 107 Carbon Dioxide 24 BUN 12 Creatinine 0.92 Glucose 166 H Calcium 8.7 Cardiac Enzymes 02/26/18 02/27/18 02/27/18 Range/Units 21:28 03:15 09:26 Troponin I < 0.03 < 0.03 < 0.03 (< 0.04) ng/mL - Attending Attestation I examined this patient and my medical decision-making was reviewed with the Resident Physician. I agree with the documented findings, disposition and treatment plan as described except to the extent set forth below. Please see event note. - Assessment and plan (1) Poorly controlled diabetes mellitus Current Visit: No Status: Acute (2) Obesity (BMI 30.0-34.9) Current Visit: No Status: Chronic (3) DVT prophylaxis Current Visit: No Status: Acute (4) Plantar ulcer of right foot Current Visit: Yes Status: Acute Qualifiers: Non-pressure ulcer stage: unspecified non-pressure ulcer stage Qualified Code(s): L97.519 - Non-pressure chronic ulcer of other part of right foot with unspecified severity (5) Sepsis Current Visit: Yes Status: Suspected Qualifiers: Sepsis type: sepsis due to unspecified organism Qualified Code(s): A41.9 - Sepsis, unspecified organism (6) Abscess of right foot Current Visit: Yes Status: Acute - Time Spent With Patient Total time spent is greater than 50% in coordination of care (as documented) at patient's floor/unit and/or counseling patient:
[2018-02-26] MEDS ORDERED: Naloxone 0.4 MG/ML INJ IVP PRN (20:31)
[2018-02-26] MEDS ORDERED: D5% in Water 1,000 ML IVC PRN (21:03)
[2018-02-26] MEDS ORDERED: Dextrose Gel 15 GM/37.5 ML TUBE PO PRN ×2 (21:03)
[2018-02-26] MEDS ORDERED: *HR* Dextrose 50 % in Water (Syg) 50 ML SYRINGE IVP PRN (21:03)
--- NOTE | 2018-02-26 21:07 | Event Note ---
Date of Encounter: 02/26/18 Time of Encounter: 21:06 46/female Type I diabetic. Admitted with recurrent cellulitis. Evaluated by emergency room physician. Started on broad-spectrum antibiotic. Podiatry evaluation noted. Plan: Continue present treatment. We will follow the recommendations from podiatry. I have personally examined this patient in the emergency room #21 Patient's was at bedside.
--- NOTE | 2018-02-26 21:52 | Podiatry Consult Note ---
Date of Encounter: 02/26/18 Time of Encounter: 21:49 History of Present Illness Chief complaint: right foot abscess HPI: Ms. Deleon is a 47 year old female who presented to the emergency department a few days ago. The patient was instructed to follow up immediately with podiatry. The patient relates that she did not follow-up with podiatry and the ulceration/abscess Bigger. The patient relates that she decided to come to the emergency department tonight. Patient relates that she has been taking oral antibiotics. Patient relates that she has significant pain. Patient relates that she has significant swelling. Past Med Surg Social Fam HX - Past Medical History Medical history: diabetes, kidney stones Psychiatric history: no psych history - Past Surgical History Surgical History: appendectomy - Social History Smoking Status: Current every day smoker Packs per day: 0.5 Smokeless Tobacco Status: No Alcohol use: none Drug use: none - Family History Mother Adopted: No Family Member Ethnicity: Non- Living Status: Hx Family Cardiac Disorders: Yes (HTN) Hx Family Respiratory Disorders: No Hx Family Cancer: No Hx Family GI Disorders: No Hx Family Endocrine Disorder: Yes (DM) Hx Family Neuromuscular Disorders: No Hx Family Neurologic Disorders: No Hx Family HEENT Disorders: No Hx Family Autoimmune Disorders: No Medications and Allergies Insulin ASPART [NovoLOG] 0 unit SQ TIDWM 12/24/16 [History] Insulin Glargine [Lantus] 32 unit SQ HS 12/24/16 [History] Cephalexin [Keflex] 500 mg PO QID #40 capsule 02/24/18 [Rx] Metformin HCl [Glucophage] 1,000 mg PO BID 02/24/18 [History] Sulfamethoxazole/Trimeth DS [Bactrim DS] 1 tab PO BID 02/26/18 [History] 3 Allergy/AdvReac Type Severity Reaction Status Date / Time codeine Allergy Confusion Verified 02/26/18 18:33 All Systems Reviewed: The remainder of the systems were reviewed and are negative Physical Exam - Constitutional Vitals: Temp Pulse Resp BP Pulse Ox 98.3 F 101 15 136/84 98 02/26/18 19:55 02/26/18 19:55 02/26/18 19:55 02/26/18 19:55 02/26/18 19:55 Exam: Pedal pulses palpable 1/4 bilaterally. There is an abscess noted on the medial aspect of the right foot with fluctuance and warmth. The abscess measures approximately 1 inch in diameter. Capillary fill time intact to the remaining digits. History of amputation noted. Decreased sensation consistent with peripheral neuropathy. Plantar aspect of the right foot has multiple areas of hypertrophic skin and ulcerative calluses. Results - Labs Result Diagrams: 02/26/18 18:23 02/26/18 18:23 Labs: Abnormal lab results WBC 12.1 K/mcL (4.3-11.1) H 02/26/18 18:23 Hgb 11.4 g/dL (11.5-15.4) L 02/26/18 18: Hct 33.7 % (35.3-44.9) L 02/26/18 18: Sodium 134 mEq/L (136-145) L 02/26/18 18: Est GFR (Non-Af Amer) 53 (> 60) L 02/26/18 18: Glucose 246 mg/dL (70-105) H 02/26/18 18: POC Glucose 151 mg/dL (70-99) H 02/26/18 21:40 All other labs normal. Consult Discharge Plan - Plan Additional Instructions: The patient was instructed that we need to perform an incision and drainage on her foot as soon as possible. The patient was instructed that it may require large incision that could take a long time to heal. Patient was instructed that the procedure would be incision and drainage of abscess with possible resection of bone.Patient was informed of the risks and complications of surgery. These may include but are not limited to the following; nerve damage, numbness, tingling, RSD/CRPS, loss of motor function, loss of toe, loss of limb , loss of life, ischemia, wound healing issues, infection, scarring, keloid formation, continued pain, arthritis, non-union, mal-union, prominent hardware, displaced hardware, reaction to hardware, the need to remove hardware, bruising , continued limp, the need for future surgery, over correction, under correction , chronic swelling, the need for physical therapy, stiffness of joints, ulceration, slow healing, wound dehiscence, reaction to implant, reaction to sutures. The patient was informed of the possible conservative treatments available which may include but are not limited to the following: Orthotics, bracing, non -weight bearing, physical therapy, padding, taping, steroid injections, NSAIDS, casting. The patient was given the option to seek a second opinion. It was explained that surgery is an art and not an exact science therefore results cannot be guaranteed. All the patients questions and concerns were addressed. Patient agrees to have the surgery despite the possible risks and complications. Absolutely no guarantees were given or implied. Referrals: NONE,PCP [Primary Care Provider] -
--- NOTE | 2018-02-26 22:24 | Anesthesia Evaluation PreOp ---
Date of Encounter: 02/26/18 Time of Encounter: 23:46 - Past History Planned Operation: I & D Right Foot Cardiac History: Denies any Significant Hx Pulmonary History: Smoker (18 years) WAITER/WAITRESS History: Denies Any Significant HX Other Medical History: Renal (kidney stones), Diabetes Type I, GERD Anesthesia History: No Prior Anesthetic Complications, Past Anesthesia Test: Negative (02/26/2018) Alcohol Use: occasionally Drug use: none Medications and Allergies Insulin ASPART [NovoLOG] 0 unit SQ TIDWM 12/24/16 [History] Insulin Glargine [Lantus] 32 unit SQ HS 12/24/16 [History] Cephalexin [Keflex] 500 mg PO QID #40 capsule 02/24/18 [Rx] Metformin HCl [Glucophage] 1,000 mg PO BID 02/24/18 [History] Sulfamethoxazole/Trimeth DS [Bactrim DS] 1 tab PO BID 02/26/18 [History] 3 Allergy/AdvReac Type Severity Reaction Status Date / Time codeine Allergy Confusion Verified 02/26/18 18:33 - Meds/Allergy Pre-op Review Medications Reviewed: Yes Allergies Reviewed: Yes Beta Blockers on Current Med List: No Anesthesia Results - Labs 02/26/18 18:23 02/26/18 18:23 Laboratory Tests 02/26/18 21:55 Urine Test Negative - Imaging EKG: report reviewed (12/25/2016 SINUS RHYTHM) Additional studies: 12/26/2016 Stress Impression: Perfusion imaging was negative for ischemia or infarct. Pharmacologic ECG was negative for ischemia at the level of heart rate achieved. Gated EF = 65%. Anesthesia Exam Vital Signs/O2 Sat/Glucose, Most Recent Temp Pulse Resp BP Pulse Ox 98.3 F 101 15 136/84 98 02/26/18 19:55 02/26/18 19:55 02/26/18 19:55 02/26/18 19:55 02/26/18 19:55 Blood Glucose* 151 Height: 5'6''/1.68m Weight: 192 lbs/87 kg NPO (# of Hours): 8 Pain Scale: 9 (right foot) Pain Scale Used: Numeric (1 - 10) - HEENT Pupil (Motor): EOMI Mallampati: III Teeth: Poor dentition Oral Opening: Greater than 3 - WAITER/WAITRESS LOC: Oriented WAITER/WAITRESS Motor: Normal RUE, Normal LUE, Normal RLE, Normal LLE, Normal Face WAITER/WAITRESS Sensory: Normal: RUE, LUE, Face, Deficit: RLE, LLE - Cardiac Rhythm: Regular Murmur: None - Pulmonary Breath Sounds: bilateral Clear Respiratory Effort: Symmetrical Anesthesia Assess/Plan ASA Score: 2 Modified Edmondson Scale for Level of Consciousness: Cooperative, oriented, and tranquil Anesthetic Plan: General Monitoring Plan: Standard Monitors Recovery Plan: PACU
[2018-02-26] MEDS ORDERED: Albuterol 2.5 MG/3 ML NEBULIZER ONE (23:03)
[2018-02-26] MEDS ORDERED: Albuterol 2.5 MG/3 ML NEBULIZER IH ONE (23:09)
[2018-02-26] MEDS ORDERED: Ringers Solution, Lactated 1,000 ML IVC SCH (23:15)
[2018-02-27] MEDS ORDERED: *HR* Propofol 200 MG/20 ML VIAL IVP ONE ×2 (00:01→00:05)
[2018-02-27] MEDS ORDERED: *HR* FentaNYL (PF) 100 MCG/2 ML VIAL ONE (00:01)
[2018-02-27] MEDS ORDERED: Bupivacaine/Clonidine Syringe 1 EACH SYRINGE ONE (00:03)
[2018-02-27] MEDS: *HR* Heparin 5,000 UNIT/ML VIAL SQ SCH ×4 (00:08→20:51)
--- NOTE | 2018-02-27 00:40 | Operative Note ---
Date of procedure: 02/27/18 Pre-op diagnosis: Abscess, right foot Post-op diagnosis: same Procedure: Incision and drainage of abscess, right foot Implants: None Anesthesia: MAC Surgeon: Shay Lofton Was there an mobile sales assistant present: No Estimated blood loss (cc): 9 Specimen: Deep cultures Condition: stable Disposition: PACU Procedure in Detail: The patient was administered IV antibiotics. The patient was transported to the operative room and placed on operating table. Following anesthesia the extremity was scrubbed prepped and draped in the usual aseptic fashion. A timeout was performed. An incision was made and deepened through subcutaneous tissue with care taken to identify and retract all vital neurovascular structures. The incision was made over the large abscess on the medial aspect of the right foot. The incision released gas and purulence. The purulence and gas was cultured. The incision was approximately 2 cm in length and the ulceration was approximately 2 cm in diameter. It was noted that the ulceration site tract to the plantar aspect of the second metatarsal head. There is a hypertrophic callus/ ulceration site plantar to the second metatarsal head which was divided as well of any necrotic or nonviable tissue and irrigated. After adequate irrigation was performed the sites were packed with iodoform gauze and Adaptic, 4 x 4's, Kerlix was used to dress the site. The patient tolerated the procedure and anesthesia well and was transported to the recovery room with vital signs stable and vascular status intact to both feet. Due to the extensive nature of the possible infection the site may need to be washed out and a few days. The packing will be pulled every 6 hours and changed. The patient will continue antibiotics. We will continue to monitor the patient for any other adverse changes.
--- NOTE | 2018-02-27 00:55 | Anesthesia Evaluation Post Op ---
Date of Encounter: 02/27/18 Time of Encounter: 00:54 - Vital Signs Vital Signs: 3 Vital Signs BP 118/67 Pulse 104 Resp 18 O2 Sat 95% - Lungs Lungs: Clear Ascult./Percussion - Airway Airway: Non-obstructed - Cardiovascular Regular Rate - Mental Status Mental Status: Alert & Oriented, Answers Appropriately - Pain Pain Scale: 0 Pain Scale used: Numeric (1 - 10) - Nausea Vomiting Nausea Vomiting: Not Present - Hydration Hydration: NPO, Has not voided - Discharge PostOp Status: Transfer Patient to floor
[2018-02-27] MEDS: Acetaminophen 325 MG TABLET PO PRN ×2 (02:55→12:32)
[2018-02-27 06:07] LABS: Basophils # 0.1 K/mcL (0.0-0.2); Basophils % 0.5 %; Eosinophils # 0.2 K/mcL (0.0-0.6); Eosinophils % 1.7 %; Hematocrit 32.6 % (35.3-44.9); Hemoglobin 10.9 g/dL (11.5-15.4); Immature Granulocytes % 0.9 % (0-4); Immature Platelets 2.2 % (1.1-6.1); Lymphocytes # 2.7 K/mcL (0.6-4.6); Lymphocytes % 21.8 %; Mean Corpuscular HGB Conc 33.4 g/dL (31.6-35.5); Mean Corpuscular Hemoglobin 29.7 pg (28.0-33.3); Mean Corpuscular Volume 88.8 fL (83.0-100.0); Mean Platelet Volume 10.2 fL (9.4-12.4); Monocytes # 0.8 K/mcL (0.0-1.3); Monocytes % 6.2 %; Neutrophils # 8.4 K/mcL (1.6-8.9); Platelet Count 426 K/mcL (140-400); Red Blood Count 3.67 M/mcL (3.82-4.97); Red Cell Distribution Width 12.8 % (11.5-14.5); Segmented Neutrophils % 68.9 %
[2018-02-27 06:17] LABS: BUN/Creatinine Ratio 13 (6-26); Blood Urea Nitrogen 12 mg/dL (6-20); Calcium 8.7 mg/dL (8.6-10.3); Carbon Dioxide 24 mEq/L (23-29); Chloride 107 mEq/L (98-107); Chol/HDL Ratio 5.1 (0-4.9); Cholesterol 199 mg/dL (< 200); Glucose 166 mg/dL (70-105); HDL Cholesterol 39 mg/dL (40-59); LDL Cholesterol,Calculated 127 mg/dL (0-99); Magnesium 1.6 mg/dL (1.6-2.6); Osmolality,Calculated 288 (280-300); Potassium 3.7 mEq/L (3.5-5.1); Sodium 137 mEq/L (136-145); Triglycerides 165 mg/dL (< 150); eGFR For African Americans > 60 (> 60); eGFR For Non-African Americans > 60 (> 60)
[2018-02-27] MEDS: Insulin LISPRO 300 UNITS/3 ML VIAL SQ SCH ×4 (09:10→20:51)
--- NOTE | 2018-02-27 09:21 | Internal Med Progress Note ---
Date of Encounter: 02/27/18 Time of Encounter: 09:18 - Assessment and plan (1) Abscess of right foot Current Visit: Yes Status: Acute Assessment and plan: Secondary to abscess of right foot 2 SIRS criteria on admission: Leukocytosis borderline elevated, tachycardia. LA within normal limits POD #0 I&D right foot Follow-up wound cultures and blood cultures Vanc/Zosyn. Reviewed prior wound cultures. (2) Plantar ulcer of right foot Current Visit: Yes Status: Acute Assessment and plan: Patient has worsening right foot ulceration despite Keflex and Bactrim, s/p right first toe amputation on October 2016. POD #0 s/p right foot I&D, tolerated well. Continue with Vacomycine and Zosyn Qualifiers: Non-pressure ulcer stage: unspecified non-pressure ulcer stage Qualified Code(s): L97.519 - Non-pressure chronic ulcer of other part of right foot with unspecified severity (3) Sepsis Current Visit: Yes Status: Suspected Assessment and plan: Secondary to abscess of right foot 2 SIRS criteria on admission: Leukocytosis borderline elevated, tachycardia. LA within normal limits POD #0 I&D right foot Follow-up wound cultures and blood cultures Vanc/Zosyn. Reviewed prior wound cultures. Qualifiers: Sepsis type: sepsis due to unspecified organism Qualified Code(s): A41.9 - Sepsis, unspecified organism (4) Poorly controlled diabetes mellitus Current Visit: No Status: Acute Assessment and plan: Last A1C = 14.1% Continue with Home insulin Levemir 32 units qHS low dose SSI Diabetic diet. (5) Obesity (BMI 30.0-34.9) Current Visit: No Status: Chronic (6) DVT prophylaxis Current Visit: No Status: Acute Assessment and plan: Heparin 5,000 units aq BID - Time Spent With Patient Total time spent is greater than 50% in coordination of care (as documented) at patient's floor/unit and/or counseling patient: - Subjective Interval history: Patient had I&D of abscess of right foot. Patient doing well, has no complaints. Denies fevers/chills, n/v. - Constitutional Vitals: Temp Pulse Resp BP Pulse Ox 98.7 F 101 16 110/69 96 02/27/18 06:25 02/27/18 06:25 02/27/18 06:25 02/27/18 06:25 02/27/18 06:25 General appearance: Present: A&O X 3, pleasant, no acute distress, answers questions appropriately Exam: - Head Head exam: Present: atraumatic, normocephalic - Eye Eye exam: Present: normal appearance, conjuntiva pink, sclera anicteric - Neck Neck exam general surgery: Present: supple, trachea midline. Absent: lymphadenopathy - Respiratory Respiratory exam: Present: CTAB. Absent: accessory muscle use, rales, rhonchi, wheezes - Cardiovascular Cardiovascular exam: Present: RRR, +S1, +S2. Absent: diastolic murmur, gallop, rubs, systolic murmur - GI/Abdominal GI/Abdominal exam: Present: normal bowel sounds, soft, no peritoneal signs. Absent: distended, tenderness - Extremities Exam Extremities exam: Present: joint swelling, warm, radial pulses palpable and symmetrical. Absent: calf tenderness, cyanotic, pedal edema Additional comments: right 2nd MCP erosion with loss of sensation. Very tender right medial aspect of right foot. Erythema noted beyond demarcations of last visit. - Neurological Exam Neurological exam: Present: alert, oriented X3. Absent: pronater drift, facial droop, speech deficit Additional comments: Right foot wrapped in clean dressing - Skin Skin exam: Present: dry, intact, warm Internal Medicine: Result - Labs CBC & Chem 7: 02/27/18 03:18 02/27/18 03:18 Labs: Short CBC 02/27/18 Range/Units 03:18 WBC 12.2 H (4.3-11.1) K/mcL Hgb 10.9 L (11.5-15.4) g/dL Hct 32.6 L (35.3-44.9) % Plt Count 426 H (140-400) K/mcL Neutrophils # 8.4 (1.6-8.9) K/mcL BMP 02/27/18 03:18 Sodium 137 Potassium 3.7 Chloride 107 Carbon Dioxide 24 BUN 12 Creatinine 0.92 Glucose 166 H Calcium 8.7 Cardiac Enzymes 02/26/18 02/27/18 Range/Units 21:28 03:15 Troponin I < 0.03 < 0.03 (< 0.04) ng/mL Consult Discharge Plan - Plan Additional Instructions: The patient was instructed that we need to perform an incision and drainage on her foot as soon as possible. The patient was instructed that it may require large incision that could take a long time to heal. Patient was instructed that the procedure would be incision and drainage of abscess with possible resection of bone.Patient was informed of the risks and complications of surgery. These may include but are not limited to the following; nerve damage, numbness, tingling, RSD/CRPS, loss of motor function, loss of toe, loss of limb , loss of life, ischemia, wound healing issues, infection, scarring, keloid formation, continued pain, arthritis, non-union, mal-union, prominent hardware, displaced hardware, reaction to hardware, the need to remove hardware, bruising , continued limp, the need for future surgery, over correction, under correction , chronic swelling, the need for physical therapy, stiffness of joints, ulceration, slow healing, wound dehiscence, reaction to implant, reaction to sutures. The patient was informed of the possible conservative treatments available which may include but are not limited to the following: Orthotics, bracing, non -weight bearing, physical therapy, padding, taping, steroid injections, NSAIDS, casting. The patient was given the option to seek a second opinion. It was explained that surgery is an art and not an exact science therefore results cannot be guaranteed. All the patients questions and concerns were addressed. Patient agrees to have the surgery despite the possible risks and complications. Absolutely no guarantees were given or implied. Referrals: Aparna Jhaveri, NURSE OBGYN [Advanced Practice Nurse] -
[2018-02-27] MEDS: Piperacillin/Tazobactam 3.375 GM in 0.9 % Sodium Chloride Mini Bag 100 ML IVPB SCH ×2 (12:29→17:45)
[2018-02-27] MEDS ORDERED: OXYCODONE Oral CONC 10 MG/0.5 ML ORAL.SYG SL PRN (12:43)
--- NOTE | 2018-02-27 13:45 | Podiatry Progress Note ---
Date of Encounter: 02/27/18 Time of Encounter: 12:15 - Assessment and Plan (1) Poorly controlled diabetes mellitus Current Visit: No Status: Acute (2) Cellulitis and abscess of foot Current Visit: No Status: Acute S/p I&D right foot by Dr. Lofton 02/27/18 Dressing taken down at bedside, foot remains edematous, periwound erythema is present, no streaking outside of outlined area, no pus, no odor. WBC: 12.2 Plan: The site may need to be washed out in a few days. We will continue to monitor patient. Continue wound care as ordered: Pack with iodoform gauze every 6 hours after irrigation with saline, apply 4x4 dry sterile gauze and kerlix. Dressing changed at bedside. Continue antibiotics. NWB to right foot. Discussed importance of glucose control to promote wound healing. Subjective Interval history: Patient is s/p I&D right foot by Dr. Lofton on 02/27/18. Patient is sitting up in bed with spouse at bedside. Patient states the right foot is painful. Dressing is intact with a moderate amount of drainage observed to dressing. No c /o fever, chills or flu like symptoms. Objective - Vital Signs Vital Signs: Vital Signs Temp Pulse Resp BP Pulse Ox 02/27/18 10:34 98.1 F 100 16 109/69 95 02/27/18 08:07 96 02/27/18 06:25 98.7 F 101 16 110/69 96 02/27/18 04:15 98.7 F 95 20 100/64 95 02/27/18 03:15 100 18 123/80 94 02/27/18 02:15 98.3 F 94 20 107/72 93 02/27/18 01:49 98.8 F 94 20 110/73 95 02/27/18 01:15 98.1 F 95 18 121/79 96 02/27/18 01:06 98.2 F 94 18 119/72 95 02/26/18 23:13 15 136/84 98 02/26/18 19:55 98.3 F 101 15 136/84 98 02/26/18 19:34 97 18 160/97 100 Intake and Output 02/26/18 02/27/18 02/27/18 23:59 07:59 15:59 Intake Total 250 / 250 200 / 200 490 / 490 Output Total 0 / 0 1309 / 1309 Balance 250 / 250 -1109 / -1109 490 / 490 Intake: IV Fluids 250 / 250 250 / 250 Vancocin 1,250 MG In 0.9 % 250 / 250 250 / 250 Sodium Chloride 250 ML @ 166.67 mls/hr IVPB Q12H [facility] Rx#: [id number] Oral 0 / 0 200 / 200 240 / 240 Output: Urine 0 / 0 1300 / 1300 Estimated Blood Loss Other: Meal Lunch Percent of Meal Consumed 100% Weight 87.09 kg Blood Glucose* 151 172 342 - Exam Exam: General appearance: alert awake oriented X 3. Calm and pleasant, no acute distress.. Vascular: Right foot: Pedal pulses +2/4 DP/PT , No evidence of cyanosis, pallor or rubor, Edema graded at 1+/4, Skin Tempature warm, No calf pain with manual compression. capillary refill time is immediate to digits. Neurologic: Sensation intact with light touch to right foot. . Postop Exam: S/P Open surgical wound to the plantar aspect of the right foot measuring 1 cm in length x 0.5 cm in width x 1.5 cm in depth, base with fibrous tissue, moderate amount of serous drainage observed to dressing, no pus, no odor, no probe to bone, periwound erythema, no fluctuance. Open surgical wound to the medial aspect of the left foot measuring 0.5 cm in length x 2 cm in width x 0.8 cm in depth, base of wound with fibrous tissue, moderate amount of serous drainage observed to dressing, no pus, no odor, periwound erythema no streaking outside of outlined area. Foot is edematous. - Lab Result Diagrams: 02/27/18 03:18 02/27/18 03:18 Labs: Abnormal lab results WBC 12.2 K/mcL (4.3-11.1) H 02/27/18 03:18 RBC 3.67 M/mcL (3.82-4.97) L 02/27/18 03:18 Hgb 10.9 g/dL (11.5-15.4) L 02/27/18 03:18 Hct 32.6 % (35.3-44.9) L 02/27/18 03:18 Plt Count 426 K/mcL (140-400) H 02/27/18 03:18 Glucose 166 mg/dL (70-105) H 02/27/18 03:18 POC Glucose 343 mg/dL (70-99) H 02/27/18 10:37 Triglycerides 165 mg/dL (< 150) H 02/27/18 03:18 LDL Cholesterol, Calc 127 mg/dL (0-99) H 02/27/18 03:18 VLDL Cholesterol, Calc 33 mg/dL (< 31) H 02/27/18 03:18 HDL Cholesterol 39 mg/dL (40-59) L 02/27/18 03:18 Cholesterol/HDL Ratio 5.1 (0-4.9) H 02/27/18 03:18 Consult Discharge Plan - Plan Additional Instructions: The patient was instructed that we need to perform an incision and drainage on her foot as soon as possible. The patient was instructed that it may require large incision that could take a long time to heal. Patient was instructed that the procedure would be incision and drainage of abscess with possible resection of bone.Patient was informed of the risks and complications of surgery. These may include but are not limited to the following; nerve damage, numbness, tingling, RSD/CRPS, loss of motor function, loss of toe, loss of limb , loss of life, ischemia, wound healing issues, infection, scarring, keloid formation, continued pain, arthritis, non-union, mal-union, prominent hardware, displaced hardware, reaction to hardware, the need to remove hardware, bruising , continued limp, the need for future surgery, over correction, under correction , chronic swelling, the need for physical therapy, stiffness of joints, ulceration, slow healing, wound dehiscence, reaction to implant, reaction to sutures. The patient was informed of the possible conservative treatments available which may include but are not limited to the following: Orthotics, bracing, non -weight bearing, physical therapy, padding, taping, steroid injections, NSAIDS, casting. The patient was given the option to seek a second opinion. It was explained that surgery is an art and not an exact science therefore results cannot be guaranteed. All the patients questions and concerns were addressed. Patient agrees to have the surgery despite the possible risks and complications. Absolutely no guarantees were given or implied. Referrals: Aparna Jhaveri, TRADING ANALYST [Advanced Practice Nurse] -
[2018-02-27] MEDS: *HR* HYDROcodone/Acet 5/325 mg TABLET PO PRN (17:42)
[2018-02-27] MEDS: Insulin DETEMIR 100 UNIT/ML X5UNITS SQ SCH (20:52)
[2018-02-27] MEDS ORDERED: NON-FORMULARY MEDICATION 1 EACH EACH (Insulin Glargine [Lantus] 32 UNIT) SQ SCH (21:00)
[2018-02-28] MEDS: Piperacillin/Tazobactam 3.375 GM in 0.9 % Sodium Chloride Mini Bag 100 ML IVPB SCH ×4 (00:21→23:32)
[2018-02-28] MEDS: *HR* HYDROcodone/Acet 5/325 mg TABLET PO PRN ×4 (00:21→21:49)
[2018-02-28 05:43] LABS: Basophils # 0.1 K/mcL (0.0-0.2); Basophils % 0.6 %; Eosinophils # 0.3 K/mcL (0.0-0.6); Eosinophils % 2.5 %; Hematocrit 29.6 % (35.3-44.9); Hemoglobin 10.1 g/dL (11.5-15.4); Immature Granulocytes % 0.7 % (0-4); Lymphocytes # 3.1 K/mcL (0.6-4.6); Mean Corpuscular HGB Conc 34.1 g/dL (31.6-35.5); Mean Corpuscular Hemoglobin 30.1 pg (28.0-33.3); Mean Corpuscular Volume 88.1 fL (83.0-100.0); Mean Platelet Volume 9.8 fL (9.4-12.4); Monocytes # 0.7 K/mcL (0.0-1.3); Monocytes % 6.6 %; Neutrophils # 6.2 K/mcL (1.6-8.9); Platelet Count 348 K/mcL (140-400); Red Blood Count 3.36 M/mcL (3.82-4.97); Segmented Neutrophils % 59.6 %
[2018-02-28 06:03] LABS: BUN/Creatinine Ratio 15 (6-26); Blood Urea Nitrogen 16 mg/dL (6-20); Calcium 8.4 mg/dL (8.6-10.3); Carbon Dioxide 21 mEq/L (23-29); Chloride 111 mEq/L (98-107); Glucose 153 mg/dL (70-105); Osmolality,Calculated 290 (280-300); Potassium 4.1 mEq/L (3.5-5.1); Sodium 138 mEq/L (136-145); eGFR For African Americans > 60 (> 60); eGFR For Non-African Americans 54 (> 60)
[2018-02-28] MEDS: *HR* Heparin 5,000 UNIT/ML VIAL SQ SCH ×3 (06:11→20:44)
[2018-02-28] MEDS: Insulin LISPRO 300 UNITS/3 ML VIAL SQ SCH ×5 (08:02→20:45)
--- NOTE | 2018-02-28 14:29 | Internal Med Progress Note ---
Date of Encounter: 02/28/18 Time of Encounter: 14:26 - Assessment and plan (1) Abscess of right foot Current Visit: Yes Status: Acute Assessment and plan: Secondary to abscess of right foot 2 SIRS criteria on admission: Leukocytosis borderline elevated, tachycardia. LA within normal limits Leukocytosis resolved, tachycardia resolved POD #1 I&D right foot Follow-up wound cultures and blood cultures - Currently no growth to date Vanc/Zosyn. Reviewed prior wound cultures. (2) Plantar ulcer of right foot Current Visit: Yes Status: Acute Assessment and plan: Patient has worsening right foot ulceration despite Keflex and Bactrim, s/p right first toe amputation on October 2016. POD #1 s/p right foot I&D, tolerated well. Follow-up cultures Continue with Vacomycine and Zosyn Qualifiers: Non-pressure ulcer stage: unspecified non-pressure ulcer stage Qualified Code(s): L97.519 - Non-pressure chronic ulcer of other part of right foot with unspecified severity (3) Sepsis Current Visit: Yes Status: Suspected Assessment and plan: Secondary to abscess of right foot 2 SIRS criteria on admission: Leukocytosis borderline elevated, tachycardia. LA within normal limits POD #0 I&D right foot Follow-up wound cultures and blood cultures Vanc/Zosyn. Reviewed prior wound cultures. Leukocytosis and tachycardia resolved Qualifiers: Sepsis type: sepsis due to unspecified organism Qualified Code(s): A41.9 - Sepsis, unspecified organism (4) Poorly controlled diabetes mellitus Current Visit: No Status: Acute Assessment and plan: Last A1C = 14.1% Continue with Home insulin Levemir 32 units qHS low dose SSI Diabetic diet. Will add TID with meals humalog along with the sliding scale (5) Obesity (BMI 30.0-34.9) Current Visit: No Status: Chronic (6) CKD (chronic kidney disease), stage III Current Visit: No Status: Acute (7) DVT prophylaxis Current Visit: No Status: Acute Assessment and plan: Heparin 5,000 units aq BID - Time Spent With Patient Total time spent is greater than 50% in coordination of care (as documented) at patient's floor/unit and/or counseling patient: - Subjective Interval history: Patient had I&D of abscess of right foot 02/27. No acute events. - Constitutional Vitals: Temp Pulse Resp BP Pulse Ox 97.9 F 84 16 114/73 96 02/28/18 10:44 02/28/18 10:44 02/28/18 10:44 02/28/18 10:44 02/28/18 10:44 General appearance: Present: A&O X 3, pleasant, no acute distress, answers questions appropriately Exam: - Head Head exam: Present: atraumatic, normocephalic - Eye Eye exam: Present: normal appearance, conjuntiva pink, sclera anicteric - Neck Neck exam general surgery: Present: supple, trachea midline. Absent: lymphadenopathy - Respiratory Respiratory exam: Present: CTAB. Absent: accessory muscle use, rales, rhonchi, wheezes - Cardiovascular Cardiovascular exam: Present: RRR, +S1, +S2. Absent: diastolic murmur, gallop, rubs, systolic murmur - GI/Abdominal GI/Abdominal exam: Present: normal bowel sounds, soft, no peritoneal signs. Absent: distended, tenderness - Extremities Exam Extremities exam: Present: joint swelling, warm, radial pulses palpable and symmetrical. Absent: calf tenderness, cyanotic, pedal edema Additional comments: right 2nd MCP erosion with loss of sensation. Very tender right medial aspect of right foot. Erythema noted beyond demarcations of last visit. - Neurological Exam Neurological exam: Present: alert, oriented X3. Absent: pronater drift, facial droop, speech deficit Additional comments: Right foot wrapped in clean dressing Internal Medicine: Result - Labs CBC & Chem 7: 02/28/18 05:09 02/28/18 05:09 Labs: Short CBC 02/28/18 Range/Units 05:09 WBC 10.3 (4.3-11.1) K/mcL Hgb 10.1 L (11.5-15.4) g/dL Hct 29.6 L (35.3-44.9) % Plt Count 348 (140-400) K/mcL Neutrophils # 6.2 (1.6-8.9) K/mcL BMP 02/28/18 05:09 Sodium 138 Potassium 4.1 Chloride 111 H Carbon Dioxide 21 L BUN 16 Creatinine 1.10 Glucose 153 H Calcium 8.4 L Consult Discharge Plan - Plan Additional Instructions: The patient was instructed that we need to perform an incision and drainage on her foot as soon as possible. The patient was instructed that it may require large incision that could take a long time to heal. Patient was instructed that the procedure would be incision and drainage of abscess with possible resection of bone.Patient was informed of the risks and complications of surgery. These may include but are not limited to the following; nerve damage, numbness, tingling, RSD/CRPS, loss of motor function, loss of toe, loss of limb , loss of life, ischemia, wound healing issues, infection, scarring, keloid formation, continued pain, arthritis, non-union, mal-union, prominent hardware, displaced hardware, reaction to hardware, the need to remove hardware, bruising , continued limp, the need for future surgery, over correction, under correction , chronic swelling, the need for physical therapy, stiffness of joints, ulceration, slow healing, wound dehiscence, reaction to implant, reaction to sutures. The patient was informed of the possible conservative treatments available which may include but are not limited to the following: Orthotics, bracing, non -weight bearing, physical therapy, padding, taping, steroid injections, NSAIDS, casting. The patient was given the option to seek a second opinion. It was explained that surgery is an art and not an exact science therefore results cannot be guaranteed. All the patients questions and concerns were addressed. Patient agrees to have the surgery despite the possible risks and complications. Absolutely no guarantees were given or implied. Referrals: Aparna Jhaveri, DISTRICT LEADER [Advanced Practice Nurse] -
--- NOTE | 2018-02-28 15:36 | Podiatry Progress Note ---
Date of Encounter: 02/28/18 Time of Encounter: 15:15 - Assessment and Plan (1) Cellulitis and abscess of foot Current Visit: No Status: Acute S/p I&D right foot by Sessions 02/27/18 Dressing taken down at bedside, foot remains edematous, periwound erythema is present, no streaking outside of outlined area, no pus, no odor. WBC: decreased to 10.3 afebrile VS stable Plan: Will plan to return to OR to wash out wound on Saturday or Saturday Continue wound care as ordered: Pack with iodoform gauze every 6 hours after irrigation with saline, apply 4x4 dry sterile gauze and kerlix. Dressing changed at bedside. Continue antibiotics. NWB to right foot. Discussed importance of glucose control to promote wound healing. Verbalized understanding Subjective Interval history: Patient is s/p I&D right foot by Dr. Lofton on 02/27/18. Patient is sitting up in bed. Patient states the right foot is painful. Dressing is intact with a moderate amount of drainage observed to dressing. No c/o fever, chills or flu like symptoms. Objective - Vital Signs Vital Signs: Vital Signs Temp Pulse Resp BP Pulse Ox 02/28/18 15:19 97.8 F 93 16 126/83 100 02/28/18 10:44 97.9 F 84 16 114/73 96 02/28/18 08:00 96 02/28/18 07:43 97.9 F 91 16 119/78 96 02/28/18 04:15 97.6 F 89 14 112/72 96 02/27/18 18:35 98.5 F 90 15 126/76 99 Intake and Output 02/27/18 02/28/18 02/28/18 23:59 07:59 15:59 Intake Total 990 / 990 1300 / 1300 Output Total 0 / 0 1000 / 1000 Balance 990 / 990 300 / 300 Intake: IV Fluids 450 / 450 350 / 350 Zosyn 3.375 GM In 0.9 % Sodium 200 / 200 100 / 100 Chloride (Mini-Bag +) 100 ML @ 25 mls/hr IVPB Q8HR [facility] Rx#: [id number] Vancocin 1,250 MG In 0.9 % 250 / 250 250 / 250 Sodium Chloride 250 ML @ 166.67 mls/hr IVPB Q12H [facility] Rx#: [id number] Oral 540 / 540 950 / 950 Output: Urine 0 / 0 1000 / 1000 Other: Meal Dinner Percent of Meal Consumed 100% # Bowel Movements 0 0 Blood Glucose* 212 120 264 - Exam Exam: General appearance: alert awake oriented X 3. Calm and pleasant, no acute distress.. Vascular: Right foot: Pedal pulses +2/4 DP/PT , No evidence of cyanosis, pallor or rubor, Edema graded at 1+/4, Skin Tempature warm, No calf pain with manual compression. capillary refill time is immediate to digits. Neurologic: Sensation intact with light touch to right foot. . Postop Exam: S/P Open surgical wound to the plantar aspect of the right foot measuring 1 cm in length x 0.5 cm in width x 1.5 cm in depth, base with fibrous tissue, moderate amount of serous drainage observed to dressing, no pus, no odor, no probe to bone, periwound erythema, no fluctuance. Open surgical wound to the medial aspect of the left foot measuring 0.5 cm in length x 2 cm in width x 0.8 cm in depth, base of wound with fibrous tissue, moderate amount of serous drainage observed to dressing, no pus, no odor, periwound erythema no streaking outside of outlined area. Foot is edematous. - Lab Result Diagrams: 02/28/18 05:09 02/28/18 05:09 Labs: Abnormal lab results RBC 3.36 M/mcL (3.82-4.97) L 02/28/18 05:09 Hgb 10.1 g/dL (11.5-15.4) L 02/28/18 05:09 Hct 29.6 % (35.3-44.9) L 02/28/18 05:09 Chloride 111 mEq/L (98-107) H 02/28/18 05:09 Carbon Dioxide 21 mEq/L (23-29) L 02/28/18 05:09 Est GFR (Non-Af Amer) 54 (> 60) L 02/28/18 05:09 Glucose 153 mg/dL (70-105) H 02/28/18 05:09 POC Glucose 264 mg/dL (70-99) H 02/28/18 11:47 Calcium 8.4 mg/dL (8.6-10.3) L 02/28/18 05:09 Triglycerides 165 mg/dL (< 150) H 02/27/18 03:18 LDL Cholesterol, Calc 127 mg/dL (0-99) H 02/27/18 03:18 VLDL Cholesterol, Calc 33 mg/dL (< 31) H 02/27/18 03:18 HDL Cholesterol 39 mg/dL (40-59) L 02/27/18 03:18 Cholesterol/HDL Ratio 5.1 (0-4.9) H 02/27/18 03:18 Vancomycin Trough 17 mcg/mL (5-10) H 02/28/18 05:09 Microbiology, Last 48 Hours 02/26/18 19:01 Blood Culture - Preliminary Peripheral Venipuncture No growth. 02/26/18 21:28 Blood Culture - Preliminary Peripheral Venipuncture No growth. 02/27/18 00:30 Wound Culture - Preliminary Right Foot No growth. Consult Discharge Plan - Plan Additional Instructions: The patient was instructed that we need to perform an incision and drainage on her foot as soon as possible. The patient was instructed that it may require large incision that could take a long time to heal. Patient was instructed that the procedure would be incision and drainage of abscess with possible resection of bone.Patient was informed of the risks and complications of surgery. These may include but are not limited to the following; nerve damage, numbness, tingling, RSD/CRPS, loss of motor function, loss of toe, loss of limb , loss of life, ischemia, wound healing issues, infection, scarring, keloid formation, continued pain, arthritis, non-union, mal-union, prominent hardware, displaced hardware, reaction to hardware, the need to remove hardware, bruising , continued limp, the need for future surgery, over correction, under correction , chronic swelling, the need for physical therapy, stiffness of joints, ulceration, slow healing, wound dehiscence, reaction to implant, reaction to sutures. The patient was informed of the possible conservative treatments available which may include but are not limited to the following: Orthotics, bracing, non -weight bearing, physical therapy, padding, taping, steroid injections, NSAIDS, casting. The patient was given the option to seek a second opinion. It was explained that surgery is an art and not an exact science therefore results cannot be guaranteed. All the patients questions and concerns were addressed. Patient agrees to have the surgery despite the possible risks and complications. Absolutely no guarantees were given or implied. Referrals: Aparna Jhaveri, NOMI [Advanced Practice Nurse] -
[2018-02-28] MEDS: Insulin DETEMIR 100 UNIT/ML X5UNITS SQ SCH (20:44)
[2018-03-01] MEDS: *HR* HYDROcodone/Acet 5/325 mg TABLET PO PRN ×3 (03:56→16:00)
[2018-03-01 04:59] LABS: Basophils # 0.1 K/mcL (0.0-0.2); Basophils % 0.6 %; Eosinophils # 0.2 K/mcL (0.0-0.6); Eosinophils % 2.8 %; Hematocrit 30.5 % (35.3-44.9); Hemoglobin 10.3 g/dL (11.5-15.4); Immature Granulocytes % 0.3 % (0-4); Lymphocytes # 3.6 K/mcL (0.6-4.6); Mean Corpuscular HGB Conc 33.8 g/dL (31.6-35.5); Mean Corpuscular Hemoglobin 29.7 pg (28.0-33.3); Mean Corpuscular Volume 87.9 fL (83.0-100.0); Mean Platelet Volume 9.5 fL (9.4-12.4); Monocytes # 0.6 K/mcL (0.0-1.3); Monocytes % 7.2 %; Neutrophils # 4.1 K/mcL (1.6-8.9); Platelet Count 408 K/mcL (140-400); Red Blood Count 3.47 M/mcL (3.82-4.97); Segmented Neutrophils % 47.1 %
[2018-03-01 05:09] LABS: BUN/Creatinine Ratio 14 (6-26); Blood Urea Nitrogen 14 mg/dL (6-20); Calcium 8.7 mg/dL (8.6-10.3); Carbon Dioxide 23 mEq/L (23-29); Chloride 109 mEq/L (98-107); Glucose 81 mg/dL (70-105); Osmolality,Calculated 288 (280-300); Potassium 3.7 mEq/L (3.5-5.1); Sodium 139 mEq/L (136-145); eGFR For African Americans > 60 (> 60); eGFR For Non-African Americans 59 (> 60)
[2018-03-01] MEDS: *HR* Heparin 5,000 UNIT/ML VIAL SQ SCH ×3 (06:05→21:08)
[2018-03-01] MEDS: Insulin LISPRO 300 UNITS/3 ML VIAL SQ SCH ×7 (07:30→21:04)
[2018-03-01] MEDS: Piperacillin/Tazobactam 3.375 GM in 0.9 % Sodium Chloride Mini Bag 100 ML IVPB SCH ×2 (07:48→15:14)
--- NOTE | 2018-03-01 08:30 | Internal Med Progress Note ---
Date of Encounter: 03/01/18 Time of Encounter: 08:27 - Assessment and plan (1) Abscess of right foot Current Visit: Yes Status: Acute Assessment and plan: Secondary to abscess of right foot 2 SIRS criteria on admission: Leukocytosis borderline elevated, tachycardia. LA within normal limits, Leukocytosis resolved, tachycardia resolved I&D right foot 5/ pt doing well Follow-up wound cultures and blood cultures - Currently no growth to date Vanc/Zosyn. Reviewed prior wound cultures. 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 s/p right foot I&D, tolerated well. Follow-up cultures, wound and blood cultures currently NGTD Continue with Vanc and Zosyn Qualifiers: Non-pressure ulcer stage: unspecified non-pressure ulcer stage Qualified Code(s): L97.519 - Non-pressure chronic ulcer of other part of right foot with unspecified severity (3) Sepsis Current Visit: Yes Status: Resolved Assessment and plan: Secondary to abscess of right foot 2 SIRS criteria on admission: Leukocytosis borderline elevated, tachycardia. LA normal on admission. .Follow-up wound cultures and blood cultures - currently NGTD Vanc/Zosyn. Reviewed prior wound cultures. Leukocytosis and tachycardia resolved Qualifiers: Sepsis type: sepsis due to unspecified organism Qualified Code(s): A41.9 - Sepsis, unspecified organism (4) Poorly controlled diabetes mellitus Current Visit: No Status: Acute Assessment and plan: Last A1C = 14.1% Continue with Home insulin Levemir 32 units qHS low dose SSI Diabetic diet. Will add TID with meals humalog along with the sliding scale - goal glucose during this admission is <180 to promote wound healing. (5) Obesity (BMI 30.0-34.9) Current Visit: No Status: Chronic (6) CKD (chronic kidney disease), stage III Current Visit: No Status: Acute (7) DVT prophylaxis Current Visit: No Status: Acute Assessment and plan: Heparin 5,000 units aq BID - Time Spent With Patient Total time spent is greater than 50% in coordination of care (as documented) at patient's floor/unit and/or counseling patient: - Subjective Interval history: Patient had I&D of abscess of right foot 5/10. No acute events, no complaints. - Constitutional Vitals: Temp Pulse Resp BP Pulse Ox 98.0 F 88 15 125/79 97 03/01/18 07:25 03/01/18 07:25 03/01/18 07:25 03/01/18 07:25 03/01/18 07:25 General appearance: Present: A&O X 3, pleasant, no acute distress, answers questions appropriately Exam: - Head Head exam: Present: atraumatic, normocephalic - Eye Eye exam: Present: normal appearance, conjuntiva pink, sclera anicteric - Neck Neck exam general surgery: Present: supple, trachea midline. Absent: lymphadenopathy - Respiratory Respiratory exam: Present: CTAB. Absent: accessory muscle use, rales, rhonchi, wheezes - Cardiovascular Cardiovascular exam: Present: RRR, +S1, +S2. Absent: diastolic murmur, gallop, rubs, systolic murmur - GI/Abdominal GI/Abdominal exam: Present: normal bowel sounds, soft, no peritoneal signs. Absent: distended, tenderness - Extremities Exam Extremities exam: Present: joint swelling, warm, radial pulses palpable and symmetrical. Absent: calf tenderness, cyanotic, pedal edema Additional comments: Right foot wrapped in clean dressing; limited exam. Erythema improved. - Neurological Exam Neurological exam: Present: alert, oriented X3. Absent: pronater drift, facial droop, speech deficit Additional comments: Internal Medicine: Result - Labs CBC & Chem 7: 03/01/18 04:37 03/01/18 04:37 Labs: Short CBC 03/01/18 Range/Units 04:37 WBC 8.7 (4.3-11.1) K/mcL Hgb 10.3 L (11.5-15.4) g/dL Hct 30.5 L (35.3-44.9) % Plt Count 408 H (140-400) K/mcL Neutrophils # 4.1 (1.6-8.9) K/mcL BMP 03/01/18 04:37 Sodium 139 Potassium 3.7 Chloride 109 H Carbon Dioxide 23 BUN 14 Creatinine 1.01 Glucose 81 Calcium 8.7 Consult Discharge Plan - Plan Additional Instructions: The patient was instructed that we need to perform an incision and drainage on her foot as soon as possible. The patient was instructed that it may require large incision that could take a long time to heal. Patient was instructed that the procedure would be incision and drainage of abscess with possible resection of bone.Patient was informed of the risks and complications of surgery. These may include but are not limited to the following; nerve damage, numbness, tingling, RSD/CRPS, loss of motor function, loss of toe, loss of limb , loss of life, ischemia, wound healing issues, infection, scarring, keloid formation, continued pain, arthritis, non-union, mal-union, prominent hardware, displaced hardware, reaction to hardware, the need to remove hardware, bruising , continued limp, the need for future surgery, over correction, under correction , chronic swelling, the need for physical therapy, stiffness of joints, ulceration, slow healing, wound dehiscence, reaction to implant, reaction to sutures. The patient was informed of the possible conservative treatments available which may include but are not limited to the following: Orthotics, bracing, non -weight bearing, physical therapy, padding, taping, steroid injections, NSAIDS, casting. The patient was given the option to seek a second opinion. It was explained that surgery is an art and not an exact science therefore results cannot be guaranteed. All the patients questions and concerns were addressed. Patient agrees to have the surgery despite the possible risks and complications. Absolutely no guarantees were given or implied. Referrals: Aparna Jhaveri, BILINGUAL MEDICAL ASSISTANT [Advanced Practice Nurse] -
[2018-03-01] MEDS: Insulin DETEMIR 100 UNIT/ML X5UNITS SQ SCH (21:07)
[2018-03-02] MEDS: Piperacillin/Tazobactam 3.375 GM in 0.9 % Sodium Chloride Mini Bag 100 ML IVPB SCH ×3 (00:01→15:07)
[2018-03-02] MEDS: *HR* HYDROcodone/Acet 5/325 mg TABLET PO PRN ×4 (00:01→21:13)
[2018-03-02 05:17] LABS: Basophils % 0.5 %; Eosinophils # 0.3 K/mcL (0.0-0.6); Eosinophils % 3.2 %; Hematocrit 29.8 % (35.3-44.9); Immature Granulocytes % 0.5 % (0-4); Lymphocytes # 2.9 K/mcL (0.6-4.6); Lymphocytes % 34.9 %; Mean Corpuscular HGB Conc 33.6 g/dL (31.6-35.5); Mean Corpuscular Hemoglobin 29.7 pg (28.0-33.3); Mean Corpuscular Volume 88.4 fL (83.0-100.0); Mean Platelet Volume 9.6 fL (9.4-12.4); Monocytes # 0.6 K/mcL (0.0-1.3); Monocytes % 6.7 %; Neutrophils # 4.5 K/mcL (1.6-8.9); Platelet Count 384 K/mcL (140-400); Red Blood Count 3.37 M/mcL (3.82-4.97); Red Cell Distribution Width 12.7 % (11.5-14.5); Segmented Neutrophils % 54.2 %
[2018-03-02 05:22] LABS: BUN/Creatinine Ratio 13 (6-26); Blood Urea Nitrogen 12 mg/dL (6-20); Calcium 8.7 mg/dL (8.6-10.3); Carbon Dioxide 25 mEq/L (23-29); Chloride 109 mEq/L (98-107); Glucose 105 mg/dL (70-105); Osmolality,Calculated 286 (280-300); Potassium 3.9 mEq/L (3.5-5.1); Sodium 138 mEq/L (136-145); eGFR For African Americans > 60 (> 60); eGFR For Non-African Americans > 60 (> 60)
[2018-03-02] MEDS: *HR* Heparin 5,000 UNIT/ML VIAL SQ SCH ×3 (06:26→21:14)
[2018-03-02] MEDS: Insulin LISPRO 300 UNITS/3 ML VIAL SQ SCH ×7 (07:42→21:15)
--- NOTE | 2018-03-02 11:00 | Internal Med Progress Note ---
Date of Encounter: 03/02/18 Time of Encounter: 10:58 - Assessment and plan (1) Sepsis Current Visit: Yes Status: Resolved Assessment and plan: Secondary to abscess of right foot 2 SIRS criteria on admission: Leukocytosis borderline elevated, tachycardia. LA normal on admission. Leukocytosis and tachycardia resolved Follow-up wound cultures (02/27) and blood cultures (02/26) - currently NGTD - continue Vanc/Zosyn. Reviewed wound cultures from previous admission. Qualifiers: Sepsis type: sepsis due to unspecified organism Qualified Code(s): A41.9 - Sepsis, unspecified organism (2) Abscess of right foot Current Visit: Yes Status: Acute Assessment and plan: Secondary to abscess of right foot 2 SIRS criteria on admission: Leukocytosis borderline elevated, tachycardia. LA within normal limits, Leukocytosis resolved, tachycardia resolved I&D right foot 02/26 pt doing well Follow-up wound cultures (02/27) and blood cultures (02/26)- Currently no growth to date Vanc/Zosyn. Podiatry following, recommendations appreciated (3) Plantar ulcer of right foot Current Visit: Yes Status: Acute Assessment and plan: Patient has worsening right foot ulceration despite Keflex and Bactrim, s/p right first toe amputation on October 2016. s/p right foot I&D, tolerated well. Follow-up cultures, wound and blood cultures currently NGTD Continue with Vanc and Zosyn Qualifiers: Non-pressure ulcer stage: unspecified non-pressure ulcer stage Qualified Code(s): L97.519 - Non-pressure chronic ulcer of other part of right foot with unspecified severity (4) Poorly controlled diabetes mellitus Current Visit: No Status: Acute Assessment and plan: Last A1C = 14.1% Continue with Home insulin Levemir 32 units qHS TID insulin WM low dose SSI Diabetic diet. Goal glucose during this admission is <180 to promote wound healing. (5) Obesity (BMI 30.0-34.9) Current Visit: No Status: Chronic (6) CKD (chronic kidney disease), stage III Current Visit: No Status: Acute Assessment and plan: Renal function at baseline. (7) DVT prophylaxis Current Visit: No Status: Acute Assessment and plan: Heparin 5,000 units SQ BID - Time Spent With Patient Total time spent is greater than 50% in coordination of care (as documented) at patient's floor/unit and/or counseling patient: - Subjective Interval history: Patient had I&D of abscess of right foot 02/27. No acute events, no complaints. Denies fevers/chills, n/v, diarrhea. - Constitutional Vitals: Temp Pulse Resp BP Pulse Ox 98.7 F 83 15 119/76 96 03/02/18 10:47 03/02/18 10:47 03/02/18 10:47 03/02/18 10:47 03/02/18 10:47 General appearance: Present: A&O X 3, pleasant, no acute distress, answers questions appropriately Exam: - Head Head exam: Present: atraumatic, normocephalic - Eye Eye exam: Present: normal appearance, conjuntiva pink, sclera anicteric - Neck Neck exam general surgery: Present: supple, trachea midline. Absent: lymphadenopathy - Respiratory Respiratory exam: Present: CTAB. Absent: accessory muscle use, rales, rhonchi, wheezes - Cardiovascular Cardiovascular exam: Present: RRR, +S1, +S2. Absent: diastolic murmur, gallop, rubs, systolic murmur - GI/Abdominal GI/Abdominal exam: Present: normal bowel sounds, soft, no peritoneal signs. Absent: distended, tenderness - Extremities Exam Extremities exam: Present: joint swelling, warm, radial pulses palpable and symmetrical. Absent: calf tenderness, cyanotic, pedal edema Additional comments: Right foot wrapped in clean dressing; limited exam. Erythema improved. - Neurological Exam Neurological exam: Present: alert, oriented X3. Absent: pronater drift, facial droop, speech deficit Additional comments: Internal Medicine: Result - Labs CBC & Chem 7: 03/02/18 04:53 03/02/18 04:53 Labs: Short CBC 03/02/18 Range/Units 04:53 WBC 8.2 (4.3-11.1) K/mcL Hgb 10.0 L (11.5-15.4) g/dL Hct 29.8 L (35.3-44.9) % Plt Count 384 (140-400) K/mcL Neutrophils # 4.5 (1.6-8.9) K/mcL BMP 03/02/18 04:53 Sodium 138 Potassium 3.9 Chloride 109 H Carbon Dioxide 25 BUN 12 Creatinine 0.95 Glucose 105 Calcium 8.7 Consult Discharge Plan - Plan Additional Instructions: The patient was instructed that we need to perform an incision and drainage on her foot as soon as possible. The patient was instructed that it may require large incision that could take a long time to heal. Patient was instructed that the procedure would be incision and drainage of abscess with possible resection of bone.Patient was informed of the risks and complications of surgery. These may include but are not limited to the following; nerve damage, numbness, tingling, RSD/CRPS, loss of motor function, loss of toe, loss of limb , loss of life, ischemia, wound healing issues, infection, scarring, keloid formation, continued pain, arthritis, non-union, mal-union, prominent hardware, displaced hardware, reaction to hardware, the need to remove hardware, bruising , continued limp, the need for future surgery, over correction, under correction , chronic swelling, the need for physical therapy, stiffness of joints, ulceration, slow healing, wound dehiscence, reaction to implant, reaction to sutures. The patient was informed of the possible conservative treatments available which may include but are not limited to the following: Orthotics, bracing, non -weight bearing, physical therapy, padding, taping, steroid injections, NSAIDS, casting. The patient was given the option to seek a second opinion. It was explained that surgery is an art and not an exact science therefore results cannot be guaranteed. All the patients questions and concerns were addressed. Patient agrees to have the surgery despite the possible risks and complications. Absolutely no guarantees were given or implied. Referrals: Aparna Jhaveri, INSPECTOR CHIEF [Advanced Practice Nurse] -
[2018-03-02] MEDS: Insulin DETEMIR 100 UNIT/ML X5UNITS SQ SCH (21:14)
--- NOTE | 2018-03-02 22:37 | Podiatry Progress Note ---
Date of Encounter: 03/02/18 Time of Encounter: 22:34 - Assessment and Plan (1) Cellulitis and abscess of foot Current Visit: No Status: Acute Patient will need IV antibiotics for at least 2 weeks and may be more depending on her labs. Patient would benefit from infectious disease consult for IV antibiotic therapy. Patient will need daily dressing changes. The patient will need to minimize weightbearing to the foot. Subjective Principal diagnosis: Right foot infection. Interval history: Infection, right foot Objective - Vital Signs Vital Signs: Vital Signs Temp Pulse Resp BP Pulse Ox 03/02/18 18:52 98.2 F 87 15 118/73 96 03/02/18 14:51 97.8 F 88 15 152/85 96 03/02/18 10:47 98.7 F 83 15 119/76 96 03/02/18 07:25 98.1 F 88 15 124/79 96 03/02/18 03:50 98.3 F 85 17 117/79 94 Intake and Output 03/02/18 03/02/18 03/02/18 07:59 15:59 23:59 Intake Total 850 / 850 580 / 580 610 / 610 Output Total 400 / 400 300 / 300 300 / 300 Balance 450 / 450 280 / 280 310 / 310 Intake: IV Fluids 100 / 100 100 / 100 250 / 250 Zosyn 3.375 GM In 0.9 % Sodium 100 / 100 100 / 100 Chloride (Mini-Bag +) 100 ML @ 25 mls/hr IVPB Q8HR [facility] Rx#: [id number] Vancocin 1,000 MG In 0.9 % 250 / 250 Sodium Chloride 250 ML @ 167 mls/hr IVPB Q12H [facility] Rx#: [id number] Oral 750 / 750 480 / 480 360 / 360 Output: Urine 400 / 400 300 / 300 300 / 300 Other: Meal Lunch Dinner Percent of Meal Consumed 100% 100% # Voids 1 Weight 91 kg Blood Glucose* 80 182 209 Patient Weight 03/02/18 23:59 Weight 91 kg - Exam Exam: Decreased erythema from prior exam. No new open wounds or lesions are noted. White blood cell count decreasing. Capillary fill time intact to the digits. Sensation decreased consistent with peripheral neuropathy. - Lab Result Diagrams: 03/02/18 04:53 03/02/18 04:53 Labs: Abnormal lab results RBC 3.37 M/mcL (3.82-4.97) L 03/02/18 04:53 Hgb 10.0 g/dL (11.5-15.4) L 03/02/18 04:53 Hct 29.8 % (35.3-44.9) L 03/02/18 04:53 Chloride 109 mEq/L (98-107) H 03/02/18 04:53 POC Glucose 209 mg/dL (70-99) H 03/02/18 21:00 Triglycerides 165 mg/dL (< 150) H 02/27/18 03:18 LDL Cholesterol, Calc 127 mg/dL (0-99) H 02/27/18 03:18 VLDL Cholesterol, Calc 33 mg/dL (< 31) H 02/27/18 03:18 HDL Cholesterol 39 mg/dL (40-59) L 02/27/18 03:18 Cholesterol/HDL Ratio 5.1 (0-4.9) H 02/27/18 03:18 Vancomycin Trough 14 mcg/mL (5-10) H 03/02/18 04:53 Microbiology, Last 48 Hours 02/27/18 00:30 Anaerobic Culture - Preliminary Right Fifth Toe At this time, no anaerobic growth is present. The culture will be finalized after 5 days of incubation. 02/27/18 00:30 Wound Culture - Final Right Foot No growth. Consult Discharge Plan - Plan Additional Instructions: The patient was instructed that we need to perform an incision and drainage on her foot as soon as possible. The patient was instructed that it may require large incision that could take a long time to heal. Patient was instructed that the procedure would be incision and drainage of abscess with possible resection of bone.Patient was informed of the risks and complications of surgery. These may include but are not limited to the following; nerve damage, numbness, tingling, RSD/CRPS, loss of motor function, loss of toe, loss of limb , loss of life, ischemia, wound healing issues, infection, scarring, keloid formation, continued pain, arthritis, non-union, mal-union, prominent hardware, displaced hardware, reaction to hardware, the need to remove hardware, bruising , continued limp, the need for future surgery, over correction, under correction , chronic swelling, the need for physical therapy, stiffness of joints, ulceration, slow healing, wound dehiscence, reaction to implant, reaction to sutures. The patient was informed of the possible conservative treatments available which may include but are not limited to the following: Orthotics, bracing, non -weight bearing, physical therapy, padding, taping, steroid injections, NSAIDS, casting. The patient was given the option to seek a second opinion. It was explained that surgery is an art and not an exact science therefore results cannot be guaranteed. All the patients questions and concerns were addressed. Patient agrees to have the surgery despite the possible risks and complications. Absolutely no guarantees were given or implied. Referrals: Aparna Jhaveri, EXHIBITS MANAGER [Advanced Practice Nurse] -
[2018-03-03] MEDS: Piperacillin/Tazobactam 3.375 GM in 0.9 % Sodium Chloride Mini Bag 100 ML IVPB SCH ×3 (05:08→15:19)
[2018-03-03] MEDS: *HR* Heparin 5,000 UNIT/ML VIAL SQ SCH ×3 (05:13→21:19)
[2018-03-03] MEDS: *HR* HYDROcodone/Acet 5/325 mg TABLET PO PRN (05:14)
[2018-03-03] MEDS: Insulin LISPRO 300 UNITS/3 ML VIAL SQ SCH ×7 (07:23→21:20)
--- NOTE | 2018-03-03 14:30 | Podiatry Progress Note ---
Date of Encounter: 03/03/18 Time of Encounter: 12:40 - Assessment and Plan (1) Poorly controlled diabetes mellitus Current Visit: No Status: Acute (2) Cellulitis and abscess of foot Current Visit: No Status: Acute S/p I&D right foot by Dr. Lofton 02/27/18 Dressing taken down at bedside, overall significant improvement, decreased erythema and swelling, no streaking outside of outlined area, no pus, no odor. WBC: 8.2 yesterday Wound cultures: no growth isolated. Plan: Continue wound care as ordered: Pack with iodoform gauze every 6 hours after irrigation with saline, apply 4x4 dry sterile gauze and kerlix. Dressing changed at bedside. Continue antibiotics. recommends IV antibiotics for two weeks, patient would benefit an ID consult. NWB to right foot. Discussed importance of glucose control to promote wound healing. F/u with Dr. Lofton one week after discharge from the hospital. Subjective Principal diagnosis: Right foot infection. Interval history: Patient is s/p I&D right foot by Dr. Lofton on 02/27/18. Patient is sitting up in bed with dressing intact to the right foot. Patient states the right foot is feeling better and is hoping to go home soon. No c/o fever, chills or flu like symptoms. Objective - Vital Signs Vital Signs: Vital Signs Temp Pulse Resp BP Pulse Ox 03/03/18 10:34 98.1 F 83 16 122/73 95 03/03/18 06:17 97.8 F 83 14 134/81 96 03/03/18 03:01 98.2 F 85 14 124/64 98 03/02/18 18:52 98.2 F 87 15 118/73 96 03/02/18 14:51 97.8 F 88 15 152/85 96 Intake and Output 03/02/18 03/03/18 03/03/18 23:59 07:59 15:59 Intake Total 960 / 960 0 / 0 720 / 720 Output Total 300 / 300 500 / 500 200 / 200 Balance 660 / 660 -500 / -500 520 / 520 Intake: IV Fluids 600 / 600 Zosyn 3.375 GM In 0.9 % Sodium 100 / 100 Chloride (Mini-Bag +) 100 ML @ 25 mls/hr IVPB Q8HR [facility] Rx#: [id number] Vancocin 1,000 MG In 0.9 % 500 / 500 Sodium Chloride 250 ML @ 167 mls/hr IVPB Q12H [facility] Rx#: [id number] Oral 360 / 360 0 / 0 720 / 720 Output: Urine 300 / 300 500 / 500 200 / 200 Other: Meal Dinner Lunch Percent of Meal Consumed 100% 100% # Bowel Movements 0 0 Weight 91.5 kg Blood Glucose* 209 116 217 Patient Weight 03/03/18 23:59 Weight 91.5 kg - Exam Exam: General appearance: alert awake oriented X 3. Calm and pleasant, no acute distress.. Vascular: Right foot: Pedal pulses +2/4 DP/PT , No evidence of cyanosis, pallor or rubor, Edema graded at 1+/4, Skin Tempature warm, No calf pain with manual compression. capillary refill time is immediate to digits. Neurologic: Sensation intact with light touch to right foot. . Postop Exam: S/P Open surgical wound to the plantar aspect of the right foot measuring 1 cm in length x 0.5 cm in width x 1.5 cm in depth, base with fibrous tissue, moderate amount of serous drainage observed to dressing, no pus, no odor, no probe to bone, periwound erythema, no fluctuance. Open surgical wound to the medial aspect of the left foot measuring 0.5 cm in length x 2 cm in width x 0.8 cm in depth, base of wound with fibrous tissue, moderate amount of serous drainage observed to dressing, no pus, no odor, periwound erythema no streaking outside of outlined area. Mild edema. - Lab Result Diagrams: 03/02/18 04:53 03/02/18 04:53 Labs: Abnormal lab results RBC 3.37 M/mcL (3.82-4.97) L 03/02/18 04:53 Hgb 10.0 g/dL (11.5-15.4) L 03/02/18 04:53 Hct 29.8 % (35.3-44.9) L 03/02/18 04:53 Chloride 109 mEq/L (98-107) H 03/02/18 04:53 POC Glucose 116 mg/dL (70-99) H 03/03/18 07:16 Triglycerides 165 mg/dL (< 150) H 02/27/18 03:18 LDL Cholesterol, Calc 127 mg/dL (0-99) H 02/27/18 03:18 VLDL Cholesterol, Calc 33 mg/dL (< 31) H 02/27/18 03:18 HDL Cholesterol 39 mg/dL (40-59) L 02/27/18 03:18 Cholesterol/HDL Ratio 5.1 (0-4.9) H 02/27/18 03:18 Vancomycin Trough 14 mcg/mL (5-10) H 03/02/18 04:53 Microbiology, Last 48 Hours 02/27/18 00:30 Anaerobic Culture - Preliminary Right Fifth Toe At this time, no anaerobic growth is present. The culture will be finalized after 5 days of incubation. Consult Discharge Plan - Plan Additional Instructions: The patient was instructed that we need to perform an incision and drainage on her foot as soon as possible. The patient was instructed that it may require large incision that could take a long time to heal. Patient was instructed that the procedure would be incision and drainage of abscess with possible resection of bone.Patient was informed of the risks and complications of surgery. These may include but are not limited to the following; nerve damage, numbness, tingling, RSD/CRPS, loss of motor function, loss of toe, loss of limb , loss of life, ischemia, wound healing issues, infection, scarring, keloid formation, continued pain, arthritis, non-union, mal-union, prominent hardware, displaced hardware, reaction to hardware, the need to remove hardware, bruising , continued limp, the need for future surgery, over correction, under correction , chronic swelling, the need for physical therapy, stiffness of joints, ulceration, slow healing, wound dehiscence, reaction to implant, reaction to sutures. The patient was informed of the possible conservative treatments available which may include but are not limited to the following: Orthotics, bracing, non -weight bearing, physical therapy, padding, taping, steroid injections, NSAIDS, casting. The patient was given the option to seek a second opinion. It was explained that surgery is an art and not an exact science therefore results cannot be guaranteed. All the patients questions and concerns were addressed. Patient agrees to have the surgery despite the possible risks and complications. Absolutely no guarantees were given or implied. Referrals: Aparna Jhaveri, BI APPLICATION DEVELOPER [Advanced Practice Nurse] -
--- NOTE | 2018-03-03 15:09 | Internal Med Progress Note ---
Date of Encounter: 03/03/18 Time of Encounter: 15:07 - Assessment and plan (1) Sepsis Current Visit: Yes Status: Resolved Assessment and plan: Secondary to abscess of right foot 2 SIRS criteria on admission: Leukocytosis borderline elevated, tachycardia. LA normal on admission. Leukocytosis and tachycardia resolved Follow-up wound cultures (02/27) and blood cultures (02/26) - currently NGTD Continue Vancomycin and Zosyn Consulted ID for antibiotic recommendation and duration. Qualifiers: Sepsis type: sepsis due to unspecified organism Qualified Code(s): A41.9 - Sepsis, unspecified organism (2) Abscess of right foot Current Visit: Yes Status: Acute Assessment and plan: Secondary to abscess of right foot 2 SIRS criteria on admission: Leukocytosis borderline elevated, tachycardia. LA within normal limits, Leukocytosis resolved, tachycardia resolved I&D right foot 02/26 pt doing well Follow-up wound cultures (02/27) and blood cultures (02/26)- Currently no growth to date Vanc/Zosyn. Patient stable, ID consulted for discharge recommendations of antibiotics. (3) Plantar ulcer of right foot Current Visit: Yes Status: Acute Assessment and plan: Patient has worsening right foot ulceration despite Keflex and Bactrim, s/p right first toe amputation on October 2016. s/p right foot I&D, tolerated well. Follow-up cultures, wound and blood cultures currently NGTD Continue with Vanc and Zosyn ID consult, appreciate recommendations for antibiotics on discharge. Qualifiers: Non-pressure ulcer stage: unspecified non-pressure ulcer stage Qualified Code(s): L97.519 - Non-pressure chronic ulcer of other part of right foot with unspecified severity (4) Poorly controlled diabetes mellitus Current Visit: No Status: Acute Assessment and plan: Last A1C = 14.1% Continue with Home insulin Levemir 32 units qHS TID insulin WM, low dose SSI Diabetic diet. Controlled (5) Obesity (BMI 30.0-34.9) Current Visit: No Status: Chronic (6) CKD (chronic kidney disease), stage III Current Visit: No Status: Acute Assessment and plan: Renal function at baseline. Nephroprotective strategy, renally dose medications (7) DVT prophylaxis Current Visit: No Status: Acute Assessment and plan: Heparin 5,000 units SQ BID - Time Spent With Patient Total time spent is greater than 50% in coordination of care (as documented) at patient's floor/unit and/or counseling patient: - Subjective Interval history: Patient had I&D of abscess of right foot 02/27. Patient has no complaints, no fevers/chills, denies foot pain. - Constitutional Vitals: Temp Pulse Resp BP Pulse Ox 98.0 F 91 16 134/80 96 03/03/18 14:44 03/03/18 14:44 03/03/18 14:44 03/03/18 14:44 03/03/18 14:44 General appearance: Present: A&O X 3, pleasant, no acute distress, answers questions appropriately Exam: - Head Head exam: Present: atraumatic, normocephalic - Eye Eye exam: Present: normal appearance, conjuntiva pink, sclera anicteric - Neck Neck exam general surgery: Present: supple, trachea midline. Absent: lymphadenopathy - Respiratory Respiratory exam: Present: CTAB. Absent: accessory muscle use, rales, rhonchi, wheezes - Cardiovascular Cardiovascular exam: Present: RRR, +S1, +S2. Absent: diastolic murmur, gallop, rubs, systolic murmur - GI/Abdominal GI/Abdominal exam: Present: normal bowel sounds, soft, no peritoneal signs. Absent: distended, tenderness - Extremities Exam Extremities exam: Present: joint swelling, warm, radial pulses palpable and symmetrical. Absent: calf tenderness, cyanotic, pedal edema Additional comments: Right foot wrapped in clean dressing; limited exam. Erythema improved. Region of old amputation region unchanged - Neurological Exam Neurological exam: Present: alert, oriented X3. Absent: pronater drift, facial droop, speech deficit Additional comments: Internal Medicine: Result - Labs CBC & Chem 7: 03/02/18 04:53 03/02/18 04:53 Consult Discharge Plan - Plan Additional Instructions: The patient was instructed that we need to perform an incision and drainage on her foot as soon as possible. The patient was instructed that it may require large incision that could take a long time to heal. Patient was instructed that the procedure would be incision and drainage of abscess with possible resection of bone.Patient was informed of the risks and complications of surgery. These may include but are not limited to the following; nerve damage, numbness, tingling, RSD/CRPS, loss of motor function, loss of toe, loss of limb , loss of life, ischemia, wound healing issues, infection, scarring, keloid formation, continued pain, arthritis, non-union, mal-union, prominent hardware, displaced hardware, reaction to hardware, the need to remove hardware, bruising , continued limp, the need for future surgery, over correction, under correction , chronic swelling, the need for physical therapy, stiffness of joints, ulceration, slow healing, wound dehiscence, reaction to implant, reaction to sutures. The patient was informed of the possible conservative treatments available which may include but are not limited to the following: Orthotics, bracing, non -weight bearing, physical therapy, padding, taping, steroid injections, NSAIDS, casting. The patient was given the option to seek a second opinion. It was explained that surgery is an art and not an exact science therefore results cannot be guaranteed. All the patients questions and concerns were addressed. Patient agrees to have the surgery despite the possible risks and complications. Absolutely no guarantees were given or implied. Referrals: Aparna Jhaveri, PROJECT ASSOCIATE [Advanced Practice Nurse] -
[2018-03-03] MEDS: Insulin DETEMIR 100 UNIT/ML X5UNITS SQ SCH (21:20)
[2018-03-04] MEDS: *HR* HYDROcodone/Acet 5/325 mg TABLET PO PRN ×3 (05:48→18:01)
[2018-03-04] MEDS: *HR* Heparin 5,000 UNIT/ML VIAL SQ SCH ×3 (05:49→21:15)
[2018-03-04] MEDS: Piperacillin/Tazobactam 3.375 GM in 0.9 % Sodium Chloride Mini Bag 100 ML IVPB SCH ×2 (07:51)
[2018-03-04] MEDS: Insulin LISPRO 300 UNITS/3 ML VIAL SQ SCH ×4 (07:51→11:53)
[2018-03-04] MEDS ORDERED: Aminoglycoside Consult 1 EACH MC ONE (09:11)
--- NOTE | 2018-03-04 10:31 | Infectious Disease Consult ---
Date of Encounter: 03/04/18 Time of Encounter: 10:26 Assessment and Plan (1) Sepsis Status: Resolved Assessment and plan: The patient had two SIRS criteria on admission. Likely secondary to right foot infection/abscess. Improved. WBC has normalized. Tachycardia has resolved. Blood cultures obtained 02/26/18 are negative x 2 sets. Qualifiers: Sepsis type: sepsis due to unspecified organism Qualified Code(s): A41.9 - Sepsis, unspecified organism (2) Foot abscess Status: Acute Assessment and plan: Location: Medial aspect right foot. Causative organism unclear. Likely secondary to ulceration from poorly-fitting shoes. X-ray of the right foot completed 02/26/18 was negative for acute findings. CT scan of the right foot completed 02/26/18 showed a 1.2cm draining abscess. Failed outpatient oral antibiotics and failed to follow up with Podiatry as instructed. Podiatry consulted. Status post I & D of the right foot. Gross purulence and gas noted intra-op, but cultures are pending. The wound noted to track to the plantar aspect of the second metatarsal head. Pre-op ESR 77, CRP 47. Wound care and activity restrictions per the podiatry team. Continue Vancomycin IV. Pharmacy to dose. Goal trough ~15. Continue Zosyn 3.375 grams IV Q8H. Duration of treatment depends on the clinical picture, but likely at least 2 weeks of IV antibiotics, but maybe longer, followed by POs. We will follow how the patient does clinically and her labs. oil well services superintendent to assist with discharge planning. Apparently, the patient does not have insurance which will make her IV antibiotic therapy a challenge. Additionally, the patient has had issues with non-compliance in the past according to her medical records. She has not seen Podiatry in the office since January 2017 and has failed to keep her appointments with her PCP. Consult VAT when discharge arrangements have been made. If unable to secure adequate post-discharge treatment, may need to consider switching to PO antibiotics instead, but will discuss with the patient and podiatry. Monitor renal function and for drug toxicity and dose-adjust antibiotics. (3) Cellulitis Status: Acute Assessment and plan: Location: Right foot. Causative organism: Unclear. Likely secondary to right foot abscess. Improved per patient. Erythema has receded from previous skin markings. Continue antibiotics as above. Qualifiers: Site of cellulitis: extremity Site of cellulitis of extremity: lower extremity Laterality: right Qualified Code(s): L03.115 - Cellulitis of right lower limb (4) Plantar ulcer of right foot Status: Acute Assessment and plan: Status post I & D. Wound care per the podiatry team. Qualifiers: Non-pressure ulcer stage: unspecified non-pressure ulcer stage Qualified Code(s): L97.519 - Non-pressure chronic ulcer of other part of right foot with unspecified severity (5) CKD (chronic kidney disease), stage III Status: Acute Assessment and plan: Serum creatinine normal at this time. Continue to trend. Dose-adjust antibiotics. Avoid nephrotoxins as able. (6) Type I diabetes mellitus Status: Chronic Assessment and plan: Likely uncontrolled. Last HgbA1C >14.1 in December,. Blood sugars appear well-controlled here in the hospital. Recommend aggressive glucose monitoring and control to promote wound healing and prevent re-infection. Management per the primary team. Qualifiers: Diabetes mellitus complication status: with skin complications Diabetes mellitus complication detail: with foot ulcer Qualified Code(s): E10.621 - Type 1 diabetes mellitus with foot ulcer; L97.509 - Non-pressure chronic ulcer of other part of unspecified foot with unspecified severity (7) Obesity (BMI 30.0-34.9) Status: Chronic Infectious Disease HPI - Data of Consult Patient: new to practice Consult date: 03/04/18 Requesting Physician: Cooper Jackson MD Primary Care Provider: PCP NONE - Consult Narrative Reason for consult: Right foot infection History of present illness: Ms. Deleon is a 47 year old female with a past medical history of uncontrolled diabetes, kidney stones, and status post right great toe amputation in December 2016 secondary to infection. The patient was admitted to the hospital February 26 for right foot abscess and diabetes. We are consulted March 04 for further recommendations for right foot infection. Briefly, the patient is a 47-year-old female with past medical history as stated above. The patient presented to the emergency department back on February 24 for a new wound to the medial aspect of the right foot that had increased in size and was red and swollen. Upon arrival to the ER, the patient was tachycardic, but was afebrile and otherwise hemodynamically stable. Laboratory studies showed a normal white blood cell count with an elevated ESR at 77 and a CRP of 47. She had plain film x-ray of the foot that was negative for osteo-or subcutaneous gas. She also had a CT of the right foot that showed findings consistent with cellulitis and 1.2 cm draining abscess. There was also some concern about changes consistent with chronic osteomyelitis versus avascular necrosis of the third metatarsal head. Podiatry was consulted via phone and recommended follow-up with podiatry in the office the next morning. She was discharged on oral Bactrim and Keflex, but failed to follow-up with podiatry and her symptoms continued to worsen so she came back to the emergency department on the day of admission. Upon arrival, the patient is afebrile, but she was tachycardic and had a new leukocytosis. Her blood glucose was elevated at 246. Podiatry was again consulted and recommended operative intervention. Blood cultures were obtained 2 sets. The patient was started empirically on IV vancomycin and IV Zosyn and admitted to the hospital for further evaluation. Since admission, the patient has undergone an I&D of the right foot on [address] meyers. Review of the operative note indicates that there is gas and gross purulence, but cultures are negative. Since admission, the patient has been on Vanco and Zosyn. Her white blood cell count has normalized. She has remained afebrile and hemodynamically stable. We have asked to evaluate and make further recommendations. During my exam today, the patient states that she was in her usual state of health until a couple of days prior to her first ER visit. She had worn a pair of sandals that had rubbed an area on the medial aspect of her foot into a blister and it continued to worsen. She reports increased redness, swelling, and pain despite taking the PO antibiotics that were prescribed. She denies fevers, chills, or rigors. Denies headache, neck pain, or dizziness. Denies congestion, earache, sore throat. Denies chest pain, shortness of breath, or cough. Denies nausea, vomiting, diarrhea, or constipation. Denies abdominal pain , urinary complaints or appetite changes. States her blood sugars run from 150- 250 at home. Denies oral thrush, dental pain, or back/joint pain except as mentioned. She reports redness to the area surrounding the ulceration, but denies any known drainage. The patient lives at home with her and two roommates. She does not work outside the home. Denies recent travel. Has one cat that is inside, but denies any bites or scratches from the cat. Smokes about half a pack of cigarettes per day and denies alcohol or illicit drug use. CC: Cooper Jackson MD Past Med Surg Social Fam HX - Past Medical History Attestation: Yes The following information was validated with the patient. Source: patient, old records reviewed, nursing notes reviewed Medical history: diabetes (Type I, diagnosed in 2006), kidney stones Psychiatric history: no psych history - Past Surgical History Surgical History: appendectomy, other (Eye surgery) - Social History Smoking Status: Current every day smoker Packs per day: 0.5 Smokeless Tobacco Status: No Alcohol use: rarely Drug use: none Occupational status: unemployed Current living situation: Home - Independent Activity Level: Independent ambulation Recent Out of Country Travel Within the Last 8 Weeks: No Exposure or Possible Exposure to Illness During Travel: No - Family History Mother Adopted: No Family Member Ethnicity: Non- Living Status: Hx Family Cardiac Disorders: Yes (HTN) Hx Family Respiratory Disorders: No Hx Family Cancer: No Hx Family GI Disorders: No Hx Family Endocrine Disorder: Yes (DM) Hx Family Neuromuscular Disorders: No Hx Family Neurologic Disorders: No Hx Family HEENT Disorders: No Hx Family Autoimmune Disorders: No Infectious Disease-CN:Meds Insulin ASPART [NovoLOG] 0 unit SQ TIDWM 12/24/16 [History] Insulin Glargine [Lantus] 32 unit SQ HS 12/24/16 [History] Cephalexin [Keflex] 500 mg PO QID #40 capsule 02/24/18 [Rx] Metformin HCl [Glucophage] 1,000 mg PO BID 02/24/18 [History] Sulfamethoxazole/Trimeth DS [Bactrim DS] 1 tab PO BID 02/26/18 [History] 3 Allergy/AdvReac Type Severity Reaction Status Date / Time codeine Allergy Confusion Verified 02/26/18 18:33 All systems: reviewed and no additional remarkable complaints except as stated Exam - Constitutional Vitals: Temp Pulse Resp BP Pulse Ox 97.9 F 84 14 138/83 95 03/04/18 07:29 03/04/18 07:29 03/04/18 07:29 03/04/18 07:29 03/04/18 07:29 General appearance: cooperative, no acute distress, obese - Head Head exam: Present: atraumatic, normal inspection, normocephalic - Eye Eye exam: Present: EOMI, normal appearance, PERRL Pupils: Present: normal accommodation - ENT ENT exam: Present: mucous membranes moist Additional comments: Very poor dentition noted with several missing and broken teeth. No evidence of dental or gum abscess. - Neck Neck exam: Present: normal inspection - Respiratory Respiratory exam: Present: CTAB. Absent: rales, respiratory distress, rhonchi, wheezes - Cardiovascular Cardiovascular exam: Present: RRR, +S1, +S2 - GI/Abdominal GI/Abdominal exam: Present: distended (obese), normal bowel sounds, soft. Absent: tenderness - Extremities Exam Extremities exam: Present: pedal edema (Trace RLE), tenderness (Mild, Right foot medial aspect surgical site.) - Expanded Lower Extremity Exam 1 - Surgical site with packing noted. Trace erythema, receded from previous skin markings. No drainage or fluctuance noted. 1 - Surgical site with packing noted. Non-tender. No erythema, warmth, drainage , or fluctuance noted. - Neurological Exam Neurological exam: Present: alert, oriented X3, no focal deficits - Psychiatric Psychiatric exam: Present: normal affect, normal mood - Skin Skin exam: Present: dry, intact, normal color, warm Infectious Disease CN: Results - Labs CBC & Chem 7: 03/02/18 04:53 03/02/18 04:53 Cultures: Cultures 02/26/18 19:01 Blood Culture - Final Peripheral Venipuncture No growth. 02/26/18 21:28 Blood Culture - Final Peripheral Venipuncture No growth. 02/27/18 00:30 Anaerobic Culture - Preliminary Right Fifth Toe At this time, no anaerobic growth is present. The culture will be finalized after 5 days of incubation. 02/27/18 00:30 Wound Culture - Final Right Foot No growth. Serology: Serology 02/26/18 Range/Units 21:55 Urine Test Negative (Negative) Consult Discharge Plan - Plan Additional Instructions: The patient was instructed that we need to perform an incision and drainage on her foot as soon as possible. The patient was instructed that it may require large incision that could take a long time to heal. Patient was instructed that the procedure would be incision and drainage of abscess with possible resection of bone.Patient was informed of the risks and complications of surgery. These may include but are not limited to the following; nerve damage, numbness, tingling, RSD/CRPS, loss of motor function, loss of toe, loss of limb , loss of life, ischemia, wound healing issues, infection, scarring, keloid formation, continued pain, arthritis, non-union, mal-union, prominent hardware, displaced hardware, reaction to hardware, the need to remove hardware, bruising , continued limp, the need for future surgery, over correction, under correction , chronic swelling, the need for physical therapy, stiffness of joints, ulceration, slow healing, wound dehiscence, reaction to implant, reaction to sutures. The patient was informed of the possible conservative treatments available which may include but are not limited to the following: Orthotics, bracing, non -weight bearing, physical therapy, padding, taping, steroid injections, NSAIDS, casting. The patient was given the option to seek a second opinion. It was explained that surgery is an art and not an exact science therefore results cannot be guaranteed. All the patients questions and concerns were addressed. Patient agrees to have the surgery despite the possible risks and complications. Absolutely no guarantees were given or implied. Referrals: Aparna Jhaveri CNP [Advanced Practice Nurse] - - Attending Attestation I examined this patient and my medical decision-making was reviewed with the Resident Physician. I agree with the documented findings, disposition and treatment plan as described except to the extent set forth below. This is an addendum to original report dictated by Willa Mercer CNP. Please refer to Jody castro for full details. Patient is a 47-year-old woman with past medical history mentioned below including diabetes mellitus type 1 and history of great toe amputation on the right in December 2016 for infection was admitted on February 26 for right foot abscess and diabetes, we are consulted on March 04 for antibiotics recommendations. Apparently patient came in on February 24 to the emergency department complaining of new wound to the medial aspect of the right foot that increased in size was red and swollen. In the ED patient was not septic but had elevated inflammatory markers. Patient had a CT of the right foot in the emergency department which showed cellulitis and a 1.2 cm draining abscess. There was also concern for chronic osteomyelitis versus avascular necrosis. Podiatry was consulted and patient was admitted. Patient was started empirically on vancomycin on Zosyn on February 26. On February 27 patient was taken to surgery where there was apparently gas and purulence. Intra-Op cultures and blood cultures were negative. Patient s leukocytosis improved,. Patient continued to be afebrile. Assessment and plan: 1sepsis 2diabetic foot infection with an abscess. Causative organism unknown. Status post I&D by Dr. bingham on February 27 with Intra-Op cultures negative 3diabetes mellitus type 1 4cellulitis 5plantar ulcer of right foot 6Chronic kidney disease Recommendations: DC vancomycin DC Zosyn 150 mg by mouth daily *Flagyl 500 mg by mouth 3 times a day Duration of treatment likely 6 weeks While on antibiotic please check weekly labs including CBC, BMP, ESR and CRP
[2018-03-04] MEDS: metroNIDAZOLE 500 MG TABLET PO SCH ×2 (14:31→21:14)
[2018-03-04] MEDS: Levofloxacin 750 MG/150 ML 750 MG/150 ML BAG IVPB SCH (14:32)
--- NOTE | 2018-03-04 14:49 | Internal Med Progress Note ---
Date of Encounter: 03/04/18 Time of Encounter: 14:47 - Assessment and plan (1) Plantar ulcer of right foot Current Visit: Yes Status: Acute Assessment and plan: With acute infection. Status post incision and drainage on 02/27/18. Infectious disease consulted. Recommend 4 weeks of antibiotics with Levaquin and Flagyl. She will follow up with infectious disease in 2 weeks. Moderate risk for complications. Qualifiers: Non-pressure ulcer stage: unspecified non-pressure ulcer stage Qualified Code(s): L97.519 - Non-pressure chronic ulcer of other part of right foot with unspecified severity (2) Abscess of right foot Current Visit: Yes Status: Acute Assessment and plan: Status post incision and drainage. Podiatry following. (3) Poorly controlled diabetes mellitus Current Visit: Yes Status: Acute Assessment and plan: Blood sugars are now better controlled. Patient is on Lantus at home. She is not able to afford this medication. As such we will switch her to insulin 70/ 30. Monitor her blood sugars on this medication overnight. His blood sugars remain well controlled, plan to discharge patient tomorrow on insulin 70/30. (4) Obesity (BMI 30.0-34.9) Current Visit: No Status: Chronic (5) CKD (chronic kidney disease), stage III Current Visit: No Status: Chronic Assessment and plan: Stable at baseline (6) Sepsis Current Visit: Yes Status: Resolved Qualifiers: Sepsis type: sepsis due to unspecified organism Qualified Code(s): A41.9 - Sepsis, unspecified organism (7) DVT prophylaxis Current Visit: Yes Status: Acute Assessment and plan: continue subcutaneous heparin - Time Spent With Patient Total time spent is greater than 50% in coordination of care (as documented) at patient's floor/unit and/or counseling patient: - Subjective Interval history: Patient seen earlier today. Doing well overall. Denies any chest pain or palpitations. No nausea or vomiting. Some tenderness reported in right foot. No fever or chills reported overnight - Constitutional Vitals: Temp Pulse Resp BP Pulse Ox 98.6 F 83 14 144/87 96 03/04/18 11:35 03/04/18 11:35 03/04/18 11:35 03/04/18 11:35 03/04/18 11:35 General appearance: Present: cooperative, A&O X 3, pleasant, no acute distress, answers questions appropriately - ENT Additional comments: Poor dentition - Neck Neck exam general surgery: Present: supple, trachea midline. Absent: lymphadenopathy - Respiratory Respiratory exam: Present: CTAB. Absent: accessory muscle use, rales, rhonchi, wheezes - Cardiovascular Cardiovascular exam: Present: RRR, +S1, +S2. Absent: diastolic murmur, gallop, rubs, systolic murmur - GI/Abdominal GI/Abdominal exam: Present: normal bowel sounds, soft, no peritoneal signs. Absent: distended, tenderness - Extremities Exam Extremities exam: Present: warm, radial pulses palpable and symmetrical. Absent : calf tenderness, cyanotic, pedal edema Additional comments: Right foot wound bandaged. Tender to palpation on the plantar surface. - Neurological Exam Neurological exam: Present: CN II-XII intact, oriented X3, no focal deficits. Absent: facial droop, speech deficit Internal Medicine: Result - Labs CBC & Chem 7: 03/02/18 04:53 03/02/18 04:53 Consult Discharge Plan - Plan Additional Instructions: The patient was instructed that we need to perform an incision and drainage on her foot as soon as possible. The patient was instructed that it may require large incision that could take a long time to heal. Patient was instructed that the procedure would be incision and drainage of abscess with possible resection of bone.Patient was informed of the risks and complications of surgery. These may include but are not limited to the following; nerve damage, numbness, tingling, RSD/CRPS, loss of motor function, loss of toe, loss of limb , loss of life, ischemia, wound healing issues, infection, scarring, keloid formation, continued pain, arthritis, non-union, mal-union, prominent hardware, displaced hardware, reaction to hardware, the need to remove hardware, bruising , continued limp, the need for future surgery, over correction, under correction , chronic swelling, the need for physical therapy, stiffness of joints, ulceration, slow healing, wound dehiscence, reaction to implant, reaction to sutures. The patient was informed of the possible conservative treatments available which may include but are not limited to the following: Orthotics, bracing, non -weight bearing, physical therapy, padding, taping, steroid injections, NSAIDS, casting. The patient was given the option to seek a second opinion. It was explained that surgery is an art and not an exact science therefore results cannot be guaranteed. All the patients questions and concerns were addressed. Patient agrees to have the surgery despite the possible risks and complications. Absolutely no guarantees were given or implied. Referrals: Aparna Jhaveri, FLOATING DERRICK OPERATOR [Advanced Practice Nurse] -
[2018-03-04] MEDS ORDERED: Insulin NPH/REG 70/30 100 UNIT/ML (x5UNIT) SQ SCH (17:00)
[2018-03-05] MEDS: *HR* Heparin 5,000 UNIT/ML VIAL SQ SCH ×2 (06:30→14:07)
[2018-03-05] MEDS ORDERED: Insulin NPH/REG 70/30 100 UNIT/ML (x5UNIT) SQ SCH (09:00)
[2018-03-05] MEDS: Levofloxacin 750 MG/150 ML 750 MG/150 ML BAG IVPB SCH (10:23)
[2018-03-05] MEDS: metroNIDAZOLE 500 MG TABLET PO SCH ×2 (10:23→14:07)
--- NOTE | 2018-03-05 10:34 | Discharge Summary ---
- NOTES TO OUTPATIENT PROVIDER Notes to Outpatient Provider: Patient admitted with infected plantar ulcer of the right foot along with poorly controlled diabetes mellitus. With abscess. Underwent incision and drainage. Evaluated by infectious disease and recommended oral antibiotics for 6 weeks. She will follow up with podiatry and infectious disease as outpatient. Patient also has uncontrolled diabetes and her insulin regimen has been changed to Humulin 70/30 as patient has trouble obtaining her insulin due to lack of insurance. Recommend referring her to endocrinology for further management of her diabetes Date of Encounter: 03/05/18 Time of Encounter: 10:31 - Discharge Diagnosis (1) Plantar ulcer of right foot Priority: Primary Status: Acute Qualifiers: Non-pressure ulcer stage: unspecified non-pressure ulcer stage Qualified Code(s): L97.519 - Non-pressure chronic ulcer of other part of right foot with unspecified severity (2) Abscess of right foot Priority: Secondary Status: Acute (3) Poorly controlled diabetes mellitus Priority: Secondary Status: Acute (4) Obesity (BMI 30.0-34.9) Priority: Secondary Status: Chronic (5) CKD (chronic kidney disease), stage III Priority: Secondary Status: Chronic (6) Sepsis Priority: Secondary Status: Resolved Qualifiers: Sepsis type: sepsis due to unspecified organism Qualified Code(s): A41.9 - Sepsis, unspecified organism (7) DVT prophylaxis Priority: Secondary Status: Acute Hospital course: Ms. Deleon is a 47 year old female patient with history of diabetes, nephrolithiasis who was admitted with infected plantar ulcer with cellulitis and abscess of the right foot along with poorly controlled diabetes mellitus. She was evaluated by podiatry and underwent incision and drainage. Wound cultures have been negative here. Blood cultures have also been negative. She was evaluated by infectious disease and recommended oral antibiotics for 6 weeks due to her lack of insurance and inability to receive intravenous antibiotics. She will follow up with podiatry and infectious disease as outpatient. She will also need to have her blood work checked every week to follow up on CBC, basic panel, ESR and CRP. For her diabetes, have changed her insulin regimen to Humulin 70/30 as it is more affordable for her. She will also be referred to endocrinology to help her better manage diabetes. Discharge discussed with: patient, nurse - Time Spent with Patient Total time spent providing and/or coordinating discharge services: Greater than 30 minutes (45 min) - Discharge Medications Prescriptions: HYDROcodone/Acet 5/325 mg [[place] 5-325 mg] 1 tab PO Q6HR PRN 5 Days #14 tablet PRN Reason: moderate pain (4-6) Insulin NPH/REG 70/30 (HUMAN) [Humulin 70/30 Vial] 20 unit SQ DAILY #1 vial Insulin NPH/REG 70/30 (HUMAN) [Humulin 70/30 Vial] 15 unit SQ 1700 #1 vial levoFLOXacin [Levaquin] 750 mg PO DAILY #42 tablet metroNIDAZOLE [Flagyl] 500 mg PO TID 42 Days tablet Home Medications: Metformin HCl [Glucophage] 1,000 mg PO BID 02/24/18 [History] HYDROcodone/Acet 5/325 mg [[place] 5-325 mg] 1 tab PO Q6HR PRN 5 Days #14 tablet 03/05/18 [Rx] Insulin NPH/REG 70/30 (HUMAN) [Humulin 70/30 Vial] 15 unit SQ 1700 #1 vial 03/05 [Rx] Insulin NPH/REG 70/30 (HUMAN) [Humulin 70/30 Vial] 20 unit SQ DAILY #1 vial [Rx] levoFLOXacin [Levaquin] 750 mg PO DAILY #42 tablet 03/05/18 [Rx] metroNIDAZOLE [Flagyl] 500 mg PO TID 42 Days tablet 03/05/18 [Rx] Allergies/Adverse Reactions: 3 Allergy/AdvReac Type Severity Reaction Status Date / Time codeine Allergy Confusion Verified 02/26/18 18:33 Date of admission: 02/26/18 18:37 Primary care physician: PCP NONE Consults: 03/03/18 13:48 Consult to Infectious Diseases [CONS] Routine Consulting Provider: Infectious Disease Susan Reason for Consult: antibiotics intermediate Call Completed: No Discharging clinician: Cooper Jackson Anticipated date of discharge: 03/05/18 - Constitutional Vitals: Temp Pulse Resp BP Pulse Ox 97.9 F 90 16 147/80 95 03/05/18 06:37 03/05/18 06:37 03/05/18 06:37 03/05/18 06:37 03/05/18 06:37 General appearance: Present: cooperative, A&O X 3, pleasant, no acute distress, answers questions appropriately - Respiratory Respiratory exam: Present: CTAB. Absent: accessory muscle use, rales, rhonchi, wheezes - Cardiovascular Cardiovascular exam: Present: RRR, +S1, +S2. Absent: diastolic murmur, gallop, rubs, systolic murmur - GI/Abdominal GI/Abdominal exam: Present: normal bowel sounds, soft, no peritoneal signs. Absent: distended, tenderness - Extremities Exam Extremities exam: Present: warm, radial pulses palpable and symmetrical. Absent : calf tenderness, cyanotic, pedal edema Additional comments: Right foot bandaged - Skin Skin exam: Present: dry - Patient Status Disposition: Home, Self-Care Condition: Fair Functional capacity at discharge: uses cane/walker Overall status at discharge: patient is progressing back to baseline - Discharge Instructions Instructions: Cellulitis (DC), Diabetes Mellitus Type 2 in Adults (DC), Sepsis (DC) Follow Up With: WoundCare,Clinic [Other] - 03/13/18 10:30 am Radha Guido CNP [Advanced Practice Nurse] - Shay Lofton DPM [Partnered Physician] - (in 1-2 weeks Office states that the patient will see podiatry in the wound care clinic.) Chrissie Barahona CNP [Advanced Practice Nurse] - (regarding diabetes in 1-2 weeks Will be faxing information on patient to this office and the office will contact patient with date and time of appointment. Thank you) Renate Batista MD [Partnered Physician] - 03/20/18 1:00 pm Additional Instructions: Follow up with wound clinic in 1 week The dressing needs to be changed every 6 hours. Pull the packing and repack with quarter inch iodoform gauze. Dress the site with Adaptic, 4 x 4's, Kerlix. - Diet and Activity Activity: increase activity as tolerated Diet: diabetic diet, low fat, low cholesterol, low salt diet
[2018-03-05 10:35] VITALS: BP 134/79
--- NOTE | 2018-03-05 11:26 | Infectious Disease Progress No ---
Date of Encounter: 03/05/18 Time of Encounter: 11:22 - Assessment and Plan (1) Sepsis Current Visit: Yes Status: Resolved The patient had two SIRS criteria on admission. Likely secondary to right foot infection/abscess. Improved. WBC has normalized. Tachycardia has resolved. Blood cultures obtained 02/26/18 are negative x 2 sets. Qualifiers: Sepsis type: sepsis due to unspecified organism Qualified Code(s): A41.9 - Sepsis, unspecified organism (2) Foot abscess Current Visit: Yes Status: Acute Location: Medial aspect right foot. Causative organism unclear. Likely secondary to ulceration from poorly-fitting shoes. X-ray of the right foot completed 02/26/18 was negative for acute findings. CT scan of the right foot completed 02/26/18 showed a 1.2cm draining abscess. Failed outpatient oral antibiotics and failed to follow up with Podiatry as instructed. Podiatry consulted. Status post I & D of the right foot. Gross purulence and gas noted intra-op, but cultures are negative. The wound noted to track to the plantar aspect of the second metatarsal head. Pre-op ESR 77, CRP 47. Wound care and activity restrictions per the podiatry team. Continue Vancomycin IV. Pharmacy to dose. Goal trough ~15. Continue Zosyn 3.375 grams IV Q8H. Duration of treatment depends on the clinical picture, but likely 4-6 weeks of PO antibiotics. The patient does not have insurance and she is unable to afford to pay for IV antibiotics out of pocket. I had a long discussion with her about this and she has decided to pursue PO antibiotics after discussing the risks, benefits, and alternatives. I spoke with Dr. Lofton who reports extensive infection in the foot, but no evidence of OM. Unlikely MRSA as the causative organism since her cultures are negative. Can switch to PO Levaquin 750mg PO daily and Flagyl 500mg PO TID on discharge. Have the patient get labs done prior to OV. Follow up with ID 03/20/18 at 1300. (3) Cellulitis Current Visit: Yes Status: Acute Location: Right foot. Causative organism: Unclear. Likely secondary to right foot abscess. Improved. Continue antibiotics as above. Qualifiers: Site of cellulitis: extremity Site of cellulitis of extremity: lower extremity Laterality: right Qualified Code(s): L03.115 - Cellulitis of right lower limb (4) Plantar ulcer of right foot Current Visit: Yes Status: Acute Status post I & D. Wound care per the podiatry team. Qualifiers: Non-pressure ulcer stage: unspecified non-pressure ulcer stage Qualified Code(s): L97.519 - Non-pressure chronic ulcer of other part of right foot with unspecified severity (5) CKD (chronic kidney disease), stage III Current Visit: No Status: Chronic Serum creatinine normal at this time. Continue to trend. Dose-adjust antibiotics. Avoid nephrotoxins as able. (6) Type I diabetes mellitus Current Visit: Yes Status: Chronic Likely uncontrolled. Last HgbA1C >14.1 in December,. Blood sugars appear well-controlled here in the hospital. Recommend aggressive glucose monitoring and control to promote wound healing and prevent re-infection. Management per the primary team. Qualifiers: Diabetes mellitus complication status: with skin complications Diabetes mellitus complication detail: with foot ulcer Qualified Code(s): E10.621 - Type 1 diabetes mellitus with foot ulcer; L97.509 - Non-pressure chronic ulcer of other part of unspecified foot with unspecified severity (7) Obesity (BMI 30.0-34.9) Current Visit: No Status: Chronic - Subjective Interval history: Patient seen and examined. No acute events noted overnight. Patient reports she feels well this morning. Denies fevers, chills, or rigors. Denies chest pain, shortness of breath, or cough. Denies nausea, vomiting, or diarrhea. Denies abdominal pain, urinary complaints, or appetite changes. Reports BM this morning. Denies pain at the surgical site. Denies oral thrush or skin lesions. Infect Dis PN-Objective Data - Labs CBC & Chem 7: 03/02/18 04:53 03/02/18 04:53 Labs: Laboratory Results - last 24 hr 03/04/18 03/04/18 03/05/18 11:38 20:15 07:49 POC Glucose 102 H 161 H 154 H Cultures: Cultures 02/27/18 00:30 Anaerobic Culture - Final Right Fifth Toe No anaerobes were recovered. 02/26/18 19:01 Blood Culture - Final Peripheral Venipuncture No growth. 02/26/18 21:28 Blood Culture - Final Peripheral Venipuncture No growth. 02/27/18 00:30 Wound Culture - Final Right Foot No growth. Serology 02/26/18 Range/Units 21:55 Urine Test Negative (Negative) Exam - Constitutional Vitals: Temp Pulse Resp BP Pulse Ox 97.6 F 88 16 134/79 96 03/05/18 10:34 03/05/18 10:34 03/05/18 10:34 03/05/18 10:34 03/05/18 10:34 General appearance: cooperative, no acute distress, obese - Head Head exam: Present: atraumatic, normal inspection, normocephalic - Eye Eye exam: Present: EOMI, normal appearance, PERRL Pupils: Present: normal accommodation - ENT ENT exam: Present: mucous membranes moist Additional comments: Very poor dentition noted with multiple missing and broken teeth. - Neck Neck exam: Present: normal inspection - Respiratory Respiratory exam: Present: CTAB. Absent: rales, respiratory distress, rhonchi, wheezes - Cardiovascular Cardiovascular exam: Present: RRR, +S1, +S2 - GI/Abdominal GI/Abdominal exam: Present: normal bowel sounds, soft. Absent: distended, tenderness - Extremities Exam Extremities exam: Present: normal inspection. Absent: joint swelling, pedal edema, tenderness Additional comments: Right foot dressing C/D/I. - Neurological Exam Neurological exam: Present: alert, oriented X3, no focal deficits - Psychiatric Psychiatric exam: Present: normal affect, normal mood - Skin Skin exam: Present: dry, intact, normal color, warm Consult Discharge Plan - Plan Additional Instructions: Follow up with wound clinic in 1 week The dressing needs to be changed every 6 hours. Pull the packing and repack with quarter inch iodoform gauze. Dress the site with Adaptic, 4 x 4's, Kerlix. Referrals: Shay Lofton DPM [Partnered Physician] - (in 1-2 weeks) Chrissie Barahona CNP [Advanced Practice Nurse] - (regarding diabetes in 1-2 weeks) Aparna Jhaveri CNP [Advanced Practice Nurse] - (in 1-2 weeks ) Renate Batista MD [Partnered Physician] - 03/20/18 1:00 pm Prescriptions: HYDROcodone/Acet 5/325 mg [[employer] 5-325 mg] 1 tab PO Q6HR PRN 5 Days #14 tablet PRN Reason: moderate pain (4-6) Insulin NPH/REG 70/30 (HUMAN) [Humulin 70/30 Vial] 20 unit SQ DAILY #1 vial Insulin NPH/REG 70/30 (HUMAN) [Humulin 70/30 Vial] 15 unit SQ 1700 #1 vial levoFLOXacin [Levaquin] 750 mg PO DAILY #42 tablet metroNIDAZOLE [Flagyl] 500 mg PO TID 42 Days tablet - Attending Attestation I examined this patient and my medical decision-making was reviewed with the Resident Physician. I agree with the documented findings, disposition and treatment plan as described except to the extent set forth below.
== END 2018-03-05 15:40 | disposition home or self-care (01) | DRG 854 ==
LOC: EMEROO 16:09 → 3ANU 18:37 → SUATTDRO 18:37 → 3ANU 20:00
PROVIDERS: ADMIT Hospitalist; ATTEND Internal Medicine